=== PATIENT | female | born 1940 | race Caucasian/White ===

== ENCOUNTER 2016-07-17 09:31 | Outpatient (CLI) | payer MEDICARE | END 2016-07-17 09:32 | disposition home or self-care (01) | DX: I12.9 Hypertensive chronic kidney disease with stage 1 through stage 4 chronic kidney disease, or unspecified chronic kidney disease (principal); N18.3 Chronic kidney disease, stage 3 (moderate); M48.06 Spinal stenosis, lumbar region; Z86.010 Personal history of colon polyps; Z86.79 Personal history of other diseases of the circulatory system; R73.01 Impaired fasting glucose; H35.81 Retinal edema; M85.80 Other specified disorders of bone density and structure, unspecified site; G20 Parkinson's disease; L98.9 Disorder of the skin and subcutaneous tissue, unspecified; Z12.11 Encounter for screening for malignant neoplasm of colon ==

== ENCOUNTER 2016-07-25 08:23 | Outpatient (CLI) | payer MEDICARE | END 2016-07-25 08:24 | disposition home or self-care (01) | DX: I65.22 Occlusion and stenosis of left carotid artery (principal) ==

== ENCOUNTER 2016-08-11 15:04 | Outpatient (CLI) | payer MEDICARE | END 2016-08-11 15:05 | disposition home or self-care (01) | DX: I65.22 Occlusion and stenosis of left carotid artery (principal) ==

== ENCOUNTER 2016-10-20 08:12 | Outpatient (CLI) | payer MEDICARE ==
[2016-10-20 13:13] LABS: ALBUMIN/GLOBULIN RATIO 1.6 (1.0-2.2); BILIRUBIN,TOTAL 1.3 mg/dL (0.2-1.0); BUN - BLOOD UREA NITROGEN 17 mg/dL (6-20); CALCIUM 9.7 mg/dL (8.5-10.3); CARBON DIOXIDE - CO2 28 mmol/L (21-32); CHLORIDE 104 mmol/L (101-111); CHOL/HDL RATIO 1.9 (<4.4); CHOLESTEROL 162 mg/dL; CREATININE 1.4 mg/dL (0.4-1.0); GFR - MDRD 36 (>89); GLUCOSE 99 mg/dL (70-100); HDL CHOLESTEROL 87 mg/dL; LDL/HDL RATIO 0.6 (<4.4); POTASSIUM 4.2 mmol/L (3.5-5.0); SODIUM 139 mmol/L (135-145); TOTAL PROTEIN 7.4 g/dL (6.7-8.2); TRIGLYCERIDES 93 mg/dL; VLDL CHOLESTEROL 19 mg/dL
== END 2016-10-20 08:13 | disposition home or self-care (01) ==
LOC: LAB.F 08:12
PROVIDERS: ATTEND Internal Medicine
DX: I10 Essential (primary) hypertension (principal); I65.22 Occlusion and stenosis of left carotid artery
CPT/HCPCS: 36415; 80053; 80061

== ENCOUNTER 2017-04-24 15:21 | Emergency (ER) | payer MEDICARE ==
--- NOTE | 2017-04-24 16:20 | XRAY Preliminary Report ---
Exam: XR CHEST 2 VIEW X-RAY IMPRESSION: No evidence of pneumonia. [facility] SITE ID: [id number]
--- NOTE | 2017-04-24 16:20 | XRAY Report ---
EXAM: CHEST RADIOGRAPHY EXAM DATE: 04/24/2017 04:10 PM. CLINICAL HISTORY: Cough. COMPARISON: None. TECHNIQUE: 2 views. FINDINGS: Lungs/Pleura: No consolidative process or focal pneumonia. There are tiny dense nodules in the left a pex consistent with old granulomatous disease. Negative for pleural effusion and pneumothorax. Mediastinum: Heart and mediastinal contours are unremarkable. Other: Surgical clips overlie left axilla. IMPRESSION: No evidence of pneumonia. [facility] Referring Provider Line: [phone] SITE ID: [id number]
--- NOTE | 2017-04-24 16:28 | ED Physician Documentation ---
PD HPI URI - Stated complaint Stated Complaint: COUGHING BLOOD - Chief complaint Chief Complaint: Resp - History obtained from History obtained from: Patient - History of Present Illness Timing - onset: Today Timing duration: Days (1) Timing details: Gradual onset Pain level max: 0 Pain level now: 0 Associated symptoms: Dry cough. No: Fever, Chills, Nasal congestion, Rhinorrhea , Sinus pain, Sore throat, Chest pain, Dyspnea, NVD Contributing factors: Sick contact. 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, Hysterectomy, Mastectomy HEENT: Tonsil/Adenoidectomy, Other - Present Medications Home Medications: Ambulatory Orders Medication Instructions Recorded Confirmed Aspirin 1 tab PO DAILY 04/24/17 04/24/17 Atorvastatin [Lipitor] 20 mg PO DAILY 04/24/17 04/24/17 Benzonatate [Tessalon Perle] 100 - 200 mg PO TID PRN #30 capsule 04/24/17 Calcium Carbonate 600 mg PO BID 04/24/17 04/24/17 Carbidopa/Levodopa 25/100 [Sinemet 1 tab PO QID 04/24/17 04/24/17 25 mg/100 mg] Carvedilol 1 tab PO DAILY 04/24/17 04/24/17 Melatonin 1 tab PO DAILY 04/24/17 04/24/17 Pramipexole Di-HCl [Pramipexole 0.125 mg pe PO TID 04/24/17 04/24/17 Dihydrochloride] Ubidecarenone [Co Q-10] 200 mg PO DAILY 04/24/17 04/24/17 - Allergies Allergies/Adverse Reactions: Allergies Allergy/AdvReac Type Severity Reaction Status Date / Time pentazocine [From Monty] Allergy Unknown Verified 04/24/17 16:25 sulfamethoxazole Allergy Unknown Verified 04/24/17 15:36 [From ] trimethoprim [From ] Allergy Unknown Verified 04/24/17 15:36 - Living Situation Living Situation: reports: With family Living Arrangement: reports: At home - Social History Does the pt smoke?: No Smoking Status: Former smoker Does the pt drink ETOH?: Yes ETOH Use: Wine Does the pt have substance abuse?: No Substance Use and Type: Marijuana - Immunizations Immunizations are current?: Yes PD ED PE NORMAL - Vitals Vital signs reviewed: Yes - General General: Alert and oriented X 3, No acute distress, Well developed/nourished - HEENT HEENT: PERRL, Ears normal, Moist mucous membranes, Pharynx benign - Neck Neck: Supple, no meningeal sign - Cardiac Cardiac: RRR, Strong equal pulses - Respiratory Respiratory: No respiratory distress, Clear bilaterally - Abdomen Abdomen: Soft, Non tender, Non distended - Derm Derm: Warm and dry - Extremities Extremities: No edema, No calf tenderness / cord - Neuro Neuro: Alert and oriented X 3 - Psych Psych: Normal mood, Normal affect Results - Vitals Vitals: Vital Signs - 24 hr 04/24/17 04/24/17 15:33 16:57 Temperature 36.2 C L 36.6 C Heart Rate 98 71 Respiratory 16 16 Rate Blood Pressure 139/74 H 147/73 H O2 Saturation 99 100 Oxygen O2 Source Room air - Rads (name of study) cxr Radiology: Prelim report reviewed, EMP read contemporaneously, See rad report ( no acute disease) PD MEDICAL DECISION MAKING - ED course Complexity details: reviewed results, re-evaluated patient, considered differential, d/w patient ED course: Patient is a 76-year-old female who presents to the emergency department with what appears to be a viral URI complicated by a small amount of hemoptysis, bright red after a coughing fit. Likely shear force induced. Will continue supportive care and follow-up with her doctor. Will place on antitussives for home. Evidence of tumor, mass, pulmonary embolus. Patient counseled regarding signs and symptoms for which I believe and urgent re-evaluation would be necessary. Patient with good understanding of and agreement to plan and is comfortable going home at this time This document was made in part using voice recognition software. While efforts are made to proofread this document, sound alike and grammatical errors may occur. Departure - Departure Disposition: 01 Home, Self Care Clinical Impression: Hemoptysis Upper respiratory tract infection Qualifiers: URI type: unspecified URI Qualified Code(s): J06.9 - Acute upper respiratory infection, unspecified Condition: Good Instructions: ED Hemoptysis Follow-Up: Shirley Reaves PA-C [Primary Care Provider] - Prescriptions: Benzonatate [Tessalon Perle] 100 - 200 mg PO TID PRN #30 capsule PRN Reason: Cough Comments: Return if you worsen. Your xray is normal today. Discharge Date/Time: 04/24/17 16:57
[2017-04-24 16:58] VITALS: BP 147/73
== END 2017-04-24 16:57 | disposition home or self-care (01) ==
LOC: ED 15:21
DX: R04.2 Hemoptysis (principal); J06.9 Acute upper respiratory infection, unspecified; I10 Essential (primary) hypertension; E78.00 Pure hypercholesterolemia, unspecified; G20 Parkinson's disease; Z85.3 Personal history of malignant neoplasm of breast; Z90.10 Acquired absence of unspecified breast and nipple
CPT/HCPCS: 71046; 99283

== ENCOUNTER 2017-04-30 10:20 | Outpatient (CLI) | payer MEDICARE | END 2017-04-30 10:21 | disposition home or self-care (01) | LOC: LAB.R 10:20 | PROVIDERS: ATTEND Family Medicine | DX: N39.0 Urinary tract infection, site not specified (principal); R59.0 Localized enlarged lymph nodes | CPT/HCPCS: 87086 ==

== ENCOUNTER 2017-06-05 09:00 | Outpatient (CLI) | payer MEDICARE | END 2017-06-05 09:01 | disposition home or self-care (01) | LOC: LAB.WCP 09:00 | PROVIDERS: ATTEND Family Medicine | DX: R31.9 Hematuria, unspecified (principal) | CPT/HCPCS: 87086 ==

== ENCOUNTER 2017-06-24 12:07 | Outpatient (CLI) | payer MEDICARE ==
--- NOTE | 2017-06-24 15:36 | MRI Report ---
EXAM MRA BRAIN EXAM DATE: 06/24/2017 12:53 PM. CLINICAL HISTORY: 68-year-old with history of carotid artery stenosis. Evaluate for intracranial vasc ular pathology. COMPARISON: Carotid artery Doppler 08/11/2016. TECHNIQUE: Multiplanar, multisequence MRA sequences of the brain were performed. Other: None. Post-pr ocessing: Multiplanar 3D MIP reconstructions. IV Contrast: None. FINDINGS: RIGHT Internal Carotid (ICA): No aneurysm, stenosis or anomaly. Middle Cerebral (MCA): No aneurysm, stenosis or anomaly. Anterior Cerebral (ASHANTI): No aneurysm, stenosis or anomaly. Posterior Cerebral (BULL FLOAT FINISHER): No aneurysm, stenosis or anomaly. Posterior Communicating (P-COM): No aneurysm, stenosis or anomaly. Vertebral: No aneurysm, stenosis or anomaly in the visualized upper vertebral artery. LEFT Internal Carotid (ICA): No aneurysm, stenosis or anomaly. Middle Cerebral (MCA): No aneurysm, stenosis or anomaly. Anterior Cerebral (ASHANTI): No aneurysm, stenosis or anomaly. Posterior Cerebral (BULL FLOAT FINISHER): The appearance to be a hypoplastic P1 segment of the left BULL FLOAT FINISHER with normal-a ppearing T2 segment distal BULL FLOAT FINISHER branches secondary to low through posterior communicating artery. Posterior Communicating (P-COM): No aneurysm, stenosis or anomaly. Vertebral: There is lack of flow related signal seen within the distal V3 segment and proximal V4 seg ment with reconstitution of flow-related signal within the mid V4 segment of the left vertebral arter y. Although finding may be technical the possibility of proximal left vertebral artery occlusion liban ot be excluded on this study. MIDLINE Anterior Communicating (A-COM): No aneurysm, stenosis or anomaly. Basilar Artery:No aneurysm, stenosis or anomaly. Other: None. IMPRESSION: 1. There is lack of flow related signal seen within the distal V3 segment and proximal V4 segment wit h reconstitution of flow-related signal within the mid V4 segment of the left vertebral artery. Altho ugh finding may be technical the possibility of proximal left vertebral artery occlusion cannot be ex cluded on this study. 2. No intracranial aneurysm. [facility] The above findings were discussed with Guille Renteria by Dr. Janes Miller at 15:35 hrs on 06/24/17. Referring Provider Line: [phone] SITE ID: [id number]
== END 2017-06-24 12:08 | disposition home or self-care (01) ==
LOC: DI 12:07
PROVIDERS: ATTEND Family Medicine
DX: I77.1 Stricture of artery (principal)
CPT/HCPCS: 70544

== ENCOUNTER 2017-07-01 11:02 | Outpatient (CLI) | payer MEDICARE ==
[2017-07-01 17:29] LABS: BASOPHILS # (AUTO) 0.1 10^3/uL (0.0-0.1); BASOPHILS % (AUTO) 1.2 %; EOSINOPHILS # (AUTO) 0.1 10^3/uL (0.0-0.7); EOSINOPHILS % (AUTO) 1.9 %; HGB - HEMOGLOBIN 11.8 g/dL (12.0-16.0); LYMPHOCYTES # (AUTO) 0.7 10^3/uL (1.5-3.5); LYMPHOCYTES % (AUTO) 16.1 %; MEAN CORPUSCULAR HEMOGLOBIN 30.8 pg (27.0-31.0); MEAN CORPUSCULAR VOLUME 96.1 fL (81.0-99.0); MEAN PLATELET VOLUME 10.3 fL (7.9-10.8); MONOCYTES # (AUTO) 0.3 10^3/uL (0.0-1.0); MONOCYTES % (AUTO) 6.3 %; NEUTROPHILS # (AUTO) 3.2 10^3/uL (1.5-6.6); NEUTROPHILS % (AUTO) 74.5 %; PLT - PLATELET COUNT 188 10^3/uL (130-450); RED BLOOD COUNT 3.85 10^6/uL (4.20-5.40); RED CELL DISTRIBUTION WIDTH 13.9 % (12.0-15.0); WHITE BLOOD COUNT 4.3 x10^3/uL (4.8-10.8)
[2017-07-01 17:47] LABS: ALBUMIN 4.5 g/dL (3.2-5.5); ALBUMIN/GLOBULIN RATIO 1.8 (1.0-2.2); ALKALINE PHOSPHATASE 62 IU/L (42-121); ALT ALANINE AMINOTRANSFERASE < 10 IU/L (10-60); AST ASPARTATE AMINOTRANSFERASE 14 IU/L (10-42); BILIRUBIN,TOTAL 0.9 mg/dL (0.2-1.0); BUN - BLOOD UREA NITROGEN 16 mg/dL (6-20); CALCIUM 9.5 mg/dL (8.5-10.3); CARBON DIOXIDE - CO2 27 mmol/L (21-32); CHLORIDE 103 mmol/L (101-111); CHOL/HDL RATIO 1.7 (<4.4); CHOLESTEROL 158 mg/dL; CREATININE 1.1 mg/dL (0.4-1.0); GFR - MDRD 48 (>89); GLUCOSE 95 mg/dL (70-100); HDL CHOLESTEROL 91 mg/dL; LDL CHOLESTEROL,CALCULATED 53 mg/dL; LDL/HDL RATIO 0.6 (<4.4); SODIUM 136 mmol/L (135-145); VLDL CHOLESTEROL 14 mg/dL
[2017-07-01 17:53] LABS: HEMOGLOBIN A1C 0.45 g/dL; HEMOGLOBIN A1C % 5.3 % (4.6-6.2)
== END 2017-07-01 11:03 | disposition home or self-care (01) ==
LOC: LAB.F 11:02
PROVIDERS: ATTEND Physician Assistant Medical
DX: R35.0 Frequency of micturition (principal); R63.1 Polydipsia; R63.2 Polyphagia; R63.4 Abnormal weight loss; E78.5 Hyperlipidemia, unspecified; E04.1 Nontoxic single thyroid nodule
CPT/HCPCS: 36415; 80053; 80061; 83036; 83721; 84443; 85025

== ENCOUNTER 2017-09-09 11:18 | Outpatient (CLI) | payer MEDICARE ==
[2017-09-09 17:59] LABS: INR 1.1 (0.8-1.2); PT - PROTHROMBIN TIME 12.2 secs (9.9-12.6)
[2017-09-09 18:05] LABS: BASOPHILS % (AUTO) 0.4 %; EOSINOPHILS # (AUTO) 0.1 10^3/uL (0.0-0.7); EOSINOPHILS % (AUTO) 2.3 %; HGB - HEMOGLOBIN 11.7 g/dL (12.0-16.0); LYMPHOCYTES # (AUTO) 0.8 10^3/uL (1.5-3.5); LYMPHOCYTES % (AUTO) 22.7 %; MEAN CORPUSCULAR HEMOGLOBIN 31.1 pg (27.0-31.0); MEAN CORPUSCULAR HGB CONC 32.8 g/dL (32.0-36.0); MEAN CORPUSCULAR VOLUME 94.9 fL (81.0-99.0); MEAN PLATELET VOLUME 10.5 fL (7.9-10.8); MONOCYTES # (AUTO) 0.2 10^3/uL (0.0-1.0); MONOCYTES % (AUTO) 6.7 %; NEUTROPHILS # (AUTO) 2.4 10^3/uL (1.5-6.6); NEUTROPHILS % (AUTO) 67.9 %; PLT - PLATELET COUNT 180 10^3/uL (130-450); RED BLOOD COUNT 3.78 10^6/uL (4.20-5.40); RED CELL DISTRIBUTION WIDTH 14.2 % (12.0-15.0); WHITE BLOOD COUNT 3.6 x10^3/uL (4.8-10.8)
[2017-09-09 18:06] LABS: CALCIUM 9.5 mg/dL (8.5-10.3)
== END 2017-09-09 11:19 | disposition home or self-care (01) ==
LOC: LAB.F 11:18
PROVIDERS: ATTEND Internal Medicine Cardiovascular Disease
DX: I42.9 Cardiomyopathy, unspecified (principal); I44.7 Left bundle-branch block, unspecified; E78.5 Hyperlipidemia, unspecified
CPT/HCPCS: 36415; 80048; 85025; 85610; 93005

== ENCOUNTER 2017-10-19 10:51 | Outpatient (CLI) | payer MEDICARE ==
[2017-10-19 17:53] LABS: PT - PROTHROMBIN TIME 11.6 secs (9.9-12.6)
== END 2017-10-19 10:52 | disposition home or self-care (01) ==
LOC: LAB.F 10:51
PROVIDERS: ATTEND Internal Medicine Cardiovascular Disease
DX: I48.0 Paroxysmal atrial fibrillation (principal)
CPT/HCPCS: 36415; 84443; 85610

== ENCOUNTER 2017-10-22 11:22 | Outpatient (CLI) | payer MEDICARE ==
[2017-10-22 18:15] LABS: INR 1.3 (0.8-1.2)
== END 2017-10-22 11:23 | disposition home or self-care (01) ==
LOC: LAB.F 11:22
PROVIDERS: ATTEND Emergency Medicine
DX: I48.91 Unspecified atrial fibrillation (principal)
CPT/HCPCS: 36415; 85610

== ENCOUNTER 2017-10-26 08:01 | Outpatient (CLI) | payer MEDICARE | END 2017-10-26 08:02 | disposition home or self-care (01) | LOC: LAB.F 08:01 | PROVIDERS: ATTEND Emergency Medicine | DX: I48.91 Unspecified atrial fibrillation (principal) | CPT/HCPCS: 85610 ==

== ENCOUNTER 2017-10-26 09:15 | Outpatient (CLI) | payer MEDICARE ==
--- NOTE | 2017-10-26 11:26 | XRAY Report ---
Procedure Date: 10/26/2017 Accession Number: [id number] / [id number] Procedure: XRS - Chest 2 View X-Ray CPT Code: 72384 FULL RESULT: EXAM: Chest 2 View X-Ray DATE: 10/26/2017 9:39 AM CLINICAL HISTORY: PULMONARY NODULE COMPARISON: Chest rate of 04/24/2017. TECHNIQUE: 2 views. FINDINGS: Lungs/Pleura: Left apical subtle nodules are demonstrated. There is no focal lung consolidation. There is no pleural effusion or pneumothorax. Mediastinum: Heart and mediastinal contours are unremarkable. Other: Left axillary surgical clips, stable. IMPRESSION: Stable chest radiograph with no acute abnormality. If the patient has a history of smoking and qualifies for screening chest CT on a clinical basis, this could be performed. [facility]
== END 2017-10-26 09:16 | disposition home or self-care (01) ==
LOC: DI.S 09:15
PROVIDERS: ATTEND Internal Medicine
DX: R91.1 Solitary pulmonary nodule (principal); I48.91 Unspecified atrial fibrillation
CPT/HCPCS: 71046; 85610

== ENCOUNTER 2017-10-29 07:49 | Outpatient (CLI) | payer MEDICARE | END 2017-10-29 07:50 | disposition home or self-care (01) | LOC: LAB.F 07:49 | PROVIDERS: ATTEND Emergency Medicine | DX: I48.91 Unspecified atrial fibrillation (principal) | CPT/HCPCS: 85610 ==

== ENCOUNTER 2017-11-02 07:56 | Outpatient (CLI) | payer MEDICARE ==
[2017-11-02 11:24] LABS: BASOPHILS # (AUTO) 0.1 10^3/uL (0.0-0.1); BASOPHILS % (AUTO) 2.3 %; EOSINOPHILS # (AUTO) 0.1 10^3/uL (0.0-0.7); LYMPHOCYTES # (AUTO) 0.8 10^3/uL (1.5-3.5); LYMPHOCYTES % (AUTO) 20.3 %; MEAN CORPUSCULAR HEMOGLOBIN 31.1 pg (27.0-31.0); MEAN CORPUSCULAR HGB CONC 32.7 g/dL (32.0-36.0); MEAN CORPUSCULAR VOLUME 95.2 fL (81.0-99.0); MEAN PLATELET VOLUME 9.8 fL (7.9-10.8); MONOCYTES # (AUTO) 0.2 10^3/uL (0.0-1.0); MONOCYTES % (AUTO) 5.6 %; NEUTROPHILS # (AUTO) 2.7 10^3/uL (1.5-6.6); NEUTROPHILS % (AUTO) 69.8 %; PLT - PLATELET COUNT 217 10^3/uL (130-450); RED BLOOD COUNT 3.85 10^6/uL (4.20-5.40); RED CELL DISTRIBUTION WIDTH 14.5 % (12.0-15.0); WHITE BLOOD COUNT 3.9 x10^3/uL (4.8-10.8)
[2017-11-02 11:30] LABS: PT - PROTHROMBIN TIME 74.9 secs (9.9-12.6)
[2017-11-02 11:40] LABS: INR 7.1 (0.8-1.2)
== END 2017-11-02 07:57 | disposition home or self-care (01) ==
LOC: LAB.F 07:56
PROVIDERS: ATTEND Emergency Medicine
DX: I48.91 Unspecified atrial fibrillation (principal)
CPT/HCPCS: 36415; 85025; 85610

== ENCOUNTER 2017-11-04 09:00 | Outpatient (CLI) | payer MEDICARE | END 2017-11-04 09:01 | disposition home or self-care (01) | LOC: LAB.F 09:00 | PROVIDERS: ATTEND Emergency Medicine | DX: I48.91 Unspecified atrial fibrillation (principal) | CPT/HCPCS: 85610 ==

== ENCOUNTER 2017-11-09 08:33 | Outpatient (CLI) | payer MEDICARE | END 2017-11-09 08:34 | disposition home or self-care (01) | LOC: LAB.F 08:33 | PROVIDERS: ATTEND Emergency Medicine | DX: I48.91 Unspecified atrial fibrillation (principal) | CPT/HCPCS: 85610 ==

== ENCOUNTER 2017-11-16 07:59 | Outpatient (CLI) | payer MEDICARE | END 2017-11-16 08:00 | disposition home or self-care (01) | LOC: LAB.F 07:59 | PROVIDERS: ATTEND Emergency Medicine | DX: I48.91 Unspecified atrial fibrillation (principal) | CPT/HCPCS: 85610 ==

== ENCOUNTER 2017-11-20 07:46 | Outpatient (CLI) | payer MEDICARE | END 2017-11-20 07:47 | disposition home or self-care (01) | LOC: LAB.F 07:46 | PROVIDERS: ATTEND Emergency Medicine | DX: I48.91 Unspecified atrial fibrillation (principal) | CPT/HCPCS: 85610 ==

== ENCOUNTER 2017-12-28 08:00 | Outpatient (CLI) | payer MEDICARE ==
[2017-12-28 18:28] LABS: CREATININE 1.5 mg/dL (0.4-1.0)
== END 2017-12-28 08:01 | disposition home or self-care (01) ==
LOC: LAB.F 08:00
PROVIDERS: ATTEND Emergency Medicine
DX: I48.0 Paroxysmal atrial fibrillation (principal)
CPT/HCPCS: 36415; 82565

== ENCOUNTER 2018-01-19 13:29 | Outpatient (CLI) | payer MEDICARE ==
[2018-01-19 17:29] LABS: CALCIUM 9.3 mg/dL (8.5-10.3); CREATININE 1.5 mg/dL (0.4-1.0)
== END 2018-01-19 13:30 | disposition home or self-care (01) ==
LOC: LAB.F 13:29
PROVIDERS: ATTEND Internal Medicine Cardiovascular Disease
DX: H02.402 Unspecified ptosis of left eyelid (principal); I42.9 Cardiomyopathy, unspecified
CPT/HCPCS: 36415; 80048; 81599; 83519

== ENCOUNTER 2018-04-03 10:26 | Emergency (ER) | payer MEDICARE ==
--- NOTE | 2018-04-03 11:38 | ED Physician Documentation ---
PD HPI HEENT FB - Chief complaint Chief Complaint: Heent - History obtained from History obtained from: Patient, Family - History of Present Illness Pain level now: 0 Location: Left ear Associated symptoms: No: Fever, Congestion, Rhinorrhea, Trismus, Unable to swallow, Swollen nodes, Facial swelling, Headache, Cough Similar symptoms before: Has not had sx before Recently seen: Not recently seen - Additional information Additional information: 77-year-old female with history of Parkinson and hearing aids here with complain of left ear pain after she tried to put in her hearing aids today patient stated she does not usually use the hearing aids on a regular basis. Patient denies any fever, ear drainage, upper respiratory infection, dizziness, nausea. Patient and spouse noted that both ear hearing aids do not have the soft plastic that covers the end part of her hearing aid. Review of Systems Ten Systems: 10 systems reviewed and negative Constitutional: denies: Fever Ears: reports: Ear pain. 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, Mastectomy HEENT: Tonsil/Adenoidectomy, Other - Present Medications Home Medications: Ambulatory Orders Medication Instructions Recorded Confirmed Calcium Carbonate [Calcium] 600 mg PO BID 04/24/17 04/24/17 Carbidopa/Levodopa 25/100 [Sinemet 1 tab PO QID 04/24/17 04/24/17 25 mg/100 mg] Carvedilol 1 tab PO DAILY 04/24/17 04/24/17 Melatonin 1 tab PO DAILY 04/24/17 04/24/17 Amiodarone [Pacerone] 1 tab PO DAILY 04/03/18 04/03/18 Dabigatran [Pradaxa] 1 tab PO BID 04/03/18 04/03/18 Lisinopril 1 tab PO DAILY 04/03/18 04/03/18 Spironolactone 1 tab PO DAILY 04/03/18 04/03/18 - Allergies Allergies/Adverse Reactions: Allergies Allergy/AdvReac Type Severity Reaction Status Date / Time pentazocine [From Talwin] Allergy Unknown Verified 04/03/18 10:45 sulfamethoxazole Allergy Unknown Verified 04/03/18 10:45 [From ] trimethoprim [From ] Allergy Unknown Verified 04/03/18 10:45 - Social History Does the pt smoke?: No Smoking Status: Never smoker Does the pt drink ETOH?: Yes Does the pt have substance abuse?: No - Immunizations Immunizations are current?: Yes Immunizations: Other immun current PD ED PE NORMAL - Vitals Vital signs reviewed: Yes - General General: Alert and oriented X 3, No acute distress, Well developed/nourished - HEENT HEENT: Atraumatic, PERRL, EOMI, Ears normal, Moist mucous membranes, Pharynx benign, Other (Bilateral ears no foreign body noted.No erythema. No lesions. External auditory canal intact tympanic membranes intact) - Neck Neck: Supple, no meningeal sign, No adenopathy - Respiratory Respiratory: No respiratory distress - Abdomen Abdomen: Soft - Derm Derm: Warm and dry - Extremities Extremities: No deformity - Neuro Neuro: Alert and oriented X 3 - Psych Psych: Normal mood, Normal affect Results - Vitals Vitals: Vital Signs - 24 hr 04/03/18 10:28 Temperature 36.5 C Heart Rate 66 Respiratory 18 Rate Blood Pressure 139/57 H O2 Saturation 100 Oxygen O2 Source Room air PD MEDICAL DECISION MAKING - ED course Complexity details: considered differential (Otitis media, otitis externa, trauma from hearing aids, foreign body), d/w patient, d/w family ED course: Patient spouse informed of examination. Instructed to follow-up with her ENT as soon as possible after the holidays. Patient will take [id number] Tylenol or Motrin for pain.Patient stated that she has history of shingles on the right side of her face which started as a right ear pain. Patient will monitor for any development of rash on her face and will see her primary doctor or return to the emergency room immediately for treatment. Departure - Departure Disposition: 01 Home, Self Care Clinical Impression: Earache on left Condition: Stable Comments: There is no foreign body or plastic inside your ears. You have no ear infection today. Call your ENT as soon as possible to reevaluate your ears and hearing aid. For pain you may take Tylenol or Motrin. If worse return to the emergency room.Monitor any development of shingles like you previously had and if this occurs call your primary doctor as soon as possible or you may return to the emergency room for medication.
[2018-04-03 11:53] VITALS: BP 143/59
== END 2018-04-03 11:52 | disposition home or self-care (01) ==
LOC: ED 10:26
DX: H92.02 Otalgia, left ear (principal); G20 Parkinson's disease; I10 Essential (primary) hypertension; E78.00 Pure hypercholesterolemia, unspecified
CPT/HCPCS: 99283

== ENCOUNTER 2018-04-14 11:25 | Outpatient (CLI) | payer MEDICARE ==
[2018-04-14 17:53] LABS: CREATININE 1.4 mg/dL (0.4-1.0)
== END 2018-04-14 11:26 | disposition home or self-care (01) ==
LOC: LAB.F 11:25
PROVIDERS: ATTEND Emergency Medicine
DX: I48.91 Unspecified atrial fibrillation (principal); I48.0 Paroxysmal atrial fibrillation
CPT/HCPCS: 36415; 82565; 85610

== ENCOUNTER 2018-07-20 10:55 | Outpatient (CLI) | payer MEDICARE ==
[2018-07-20 19:19] LABS: HB2 TOTAL 12.5 g/dL; HEMOGLOBIN A1C 0.42 g/dL; HEMOGLOBIN A1C % 5.2 % (4.6-6.2)
[2018-07-20 19:21] LABS: RHEUMATOID FACTOR NEGATIVE (Negative)
[2018-07-22 23:57] LABS: ALPHA 1 GLOBULIN 0.3 g/dL (0.2-0.3); ALPHA 2 GLOBULIN 0.8 g/dL (0.5-0.9); BETA 1 GLOBULIN 0.4 g/dL (0.4-0.6); BETA 2 GLOBULIN 0.3 g/dL (0.2-0.5); GAMMA GLOBULIN 1.2 g/dL (0.8-1.7)
[2018-07-23 20:52] LABS: ANA SCREEN POSITIVE (NEGATIVE)
== END 2018-07-20 10:56 | disposition home or self-care (01) ==
LOC: LAB.F 10:55
PROVIDERS: ATTEND Psychiatry & Neurology Neurology
DX: G20 Parkinson's disease (principal)
CPT/HCPCS: 36415; 81599; 83036; 84155; 84165; 86038; 86140; 86200; 86430

== ENCOUNTER 2018-09-24 12:30 | Outpatient (CLI) | payer MEDICARE ==
[2018-09-24 17:25] LABS: CREATININE 1.9 mg/dL (0.4-1.0)
== END 2018-09-24 12:31 | disposition home or self-care (01) ==
LOC: LAB.F 12:30
PROVIDERS: ATTEND Emergency Medicine
DX: I48.0 Paroxysmal atrial fibrillation (principal)
CPT/HCPCS: 36415; 82565; 85610

== ENCOUNTER 2018-09-28 08:41 | Outpatient (CLI) | payer MEDICARE ==
[2018-09-28 10:31] LABS: BASOPHILS % (AUTO) 1.4 %; EOSINOPHILS # (AUTO) 0.1 10^3/uL (0.0-0.7); EOSINOPHILS % (AUTO) 2.8 %; LYMPHOCYTES # (AUTO) 0.5 10^3/uL (1.5-3.5); LYMPHOCYTES % (AUTO) 23.4 %; MEAN CORPUSCULAR HEMOGLOBIN 31.4 pg (27.0-31.0); MEAN CORPUSCULAR HGB CONC 31.7 g/dL (32.0-36.0); MEAN CORPUSCULAR VOLUME 99.1 fL (81.0-99.0); MONOCYTES # (AUTO) 0.3 10^3/uL (0.0-1.0); MONOCYTES % (AUTO) 12.8 %; NEUTROPHILS # (AUTO) 1.3 10^3/uL (1.5-6.6); NEUTROPHILS % (AUTO) 59.1 %; PLT - PLATELET COUNT 189 10^3/uL (130-450); RED CELL DISTRIBUTION WIDTH 13.7 % (12.0-15.0); WHITE BLOOD COUNT 2.2 x10^3/uL (4.8-10.8)
[2018-09-28 11:08] LABS: PLATELET ESTIMATE, MANUAL NORMAL (130-450,000) (NORMAL); PLATELET MORPHOLOGY NORMAL APPEARANCE (NORMAL); RBC MORPHOLOGY (MULTIPLE) NORMAL APPEARANCE (NORMAL)
== END 2018-09-28 08:42 | disposition home or self-care (01) ==
LOC: LAB.F 08:41
PROVIDERS: ATTEND Emergency Medicine
DX: I48.91 Unspecified atrial fibrillation (principal)
CPT/HCPCS: 36415; 85025

== ENCOUNTER 2018-10-05 15:11 | Outpatient (CLI) | payer MEDICARE | END 2018-10-05 15:12 | disposition home or self-care (01) | LOC: LAB.S 15:11 | PROVIDERS: ATTEND Emergency Medicine | DX: I48.91 Unspecified atrial fibrillation (principal) | CPT/HCPCS: 85610 ==

== ENCOUNTER 2018-10-15 13:48 | Outpatient (CLI) | payer MEDICARE ==
[2018-10-15 18:04] LABS: BILIRUBIN,URINE NEGATIVE (NEGATIVE); GLUCOSE, URINE (UA) NEGATIVE (NEGATIVE); KETONES,URINE (UA) NEGATIVE (NEGATIVE); LEUKOCYTE ESTERASE, URINE TRACE (NEGATIVE); NITRITE,URINE NEGATIVE (NEGATIVE); OCCULT BLOOD,URINE NEGATIVE (NEGATIVE); PROTEIN,URINE NEGATIVE (NEGATIVE); UROBILINOGEN,URINE 0.2 (NORMAL) E.U./dL (NORMAL)
[2018-10-15 18:13] LABS: INR 3.6 (0.8-1.2); PT - PROTHROMBIN TIME 39.8 secs (9.9-12.6)
[2018-10-15 18:32] LABS: CLARITY,URINE HAZY (CLEAR)
[2018-10-15 18:33] LABS: BACTERIA,URINE Many /HPF (None Seen); RBC,URINE None Seen /HPF (0-5); SQUAMOUS EPITHELIAL CELL,UR NONE SEEN (<= Few); WBC CLUMPS,URINE PRESENT
[2018-10-18 14:22] LABS: ANA SCREEN NEGATIVE (NEGATIVE)
[2018-10-19 12:12] LABS: DNA (DS) ANTIBODY 3 IU/mL
[2018-10-19 13:47] LABS: COMPLEMENT COMPONENT C3C 110 mg/dL (83-193); COMPLEMENT COMPONENT C4C 18 mg/dL (15-57)
== END 2018-10-15 13:49 | disposition home or self-care (01) ==
LOC: LAB.S 13:48
PROVIDERS: ATTEND Psychiatry & Neurology Neurology
DX: I48.91 Unspecified atrial fibrillation (principal); R76.8 Other specified abnormal immunological findings in serum
CPT/HCPCS: 36415; 81001; 85610; 86038; 86160; 86225; 87086; 87181

== ENCOUNTER 2018-10-22 13:35 | Outpatient (CLI) | payer MEDICARE | END 2018-10-22 13:36 | disposition home or self-care (01) | LOC: LAB.S 13:35 | PROVIDERS: ATTEND Emergency Medicine | DX: I48.91 Unspecified atrial fibrillation (principal) | CPT/HCPCS: 85610 ==

== ENCOUNTER 2018-11-01 13:51 | Outpatient (CLI) | payer MEDICARE ==
[2018-11-01 18:34] LABS: PT - PROTHROMBIN TIME 71.4 secs (9.9-12.6)
[2018-11-01 19:14] LABS: INR 6.4 (0.8-1.2)
== END 2018-11-01 13:52 | disposition home or self-care (01) ==
LOC: LAB.S 13:51
PROVIDERS: ATTEND Emergency Medicine
DX: I48.91 Unspecified atrial fibrillation (principal)
CPT/HCPCS: 36415; 85610

== ENCOUNTER 2018-11-03 11:15 | Outpatient (CLI) | payer MEDICARE | END 2018-11-03 11:16 | disposition home or self-care (01) | LOC: LAB.S 11:15 | PROVIDERS: ATTEND Emergency Medicine | DX: I48.91 Unspecified atrial fibrillation (principal) | CPT/HCPCS: 85610 ==

== ENCOUNTER 2018-11-05 | Outpatient (CLI) | payer MEDICARE | END 2018-11-05 10:29 | disposition home or self-care (01) | DX: I48.91 Unspecified atrial fibrillation (principal) ==

== ENCOUNTER 2018-11-08 | Outpatient (CLI) | payer MEDICARE | END 2018-11-08 15:30 | disposition home or self-care (01) | DX: I48.91 Unspecified atrial fibrillation (principal) ==

== ENCOUNTER 2018-11-09 13:11 | Outpatient (CLI) | payer MEDICARE | END 2018-11-09 23:59 | disposition home or self-care (01) | LOC: LAB.R 13:11 | PROVIDERS: ATTEND Physician Assistant Medical | DX: K52.9 Noninfective gastroenteritis and colitis, unspecified (principal) | CPT/HCPCS: 87493 ==

== ENCOUNTER 2018-11-11 12:46 | Outpatient (CLI) | payer MEDICARE ==
[2018-11-11 17:52] LABS: ALBUMIN 3.5 g/dL (3.2-5.5); BILIRUBIN,TOTAL 0.6 mg/dL (0.2-1.0); CALCIUM 9.4 mg/dL (8.5-10.3); CREATININE 2.4 mg/dL (0.4-1.0); TOTAL PROTEIN 6.9 g/dL (6.7-8.2)
== END 2018-11-11 12:47 | disposition home or self-care (01) ==
LOC: LAB.S 12:46
PROVIDERS: ATTEND Emergency Medicine
DX: I48.91 Unspecified atrial fibrillation (principal); K52.9 Noninfective gastroenteritis and colitis, unspecified
CPT/HCPCS: 36415; 80053; 85610

== ENCOUNTER 2018-11-15 14:09 | Emergency (ER) | payer MEDICARE ==
[2018-11-15 14:41] LABS: BASOPHILS % (AUTO) 0.6 %; EOSINOPHILS # (AUTO) 0.1 10^3/uL (0.0-0.7); EOSINOPHILS % (AUTO) 1.2 %; HGB - HEMOGLOBIN 11.1 g/dL (12.0-16.0); LYMPHOCYTES # (AUTO) 0.8 10^3/uL (1.5-3.5); LYMPHOCYTES % (AUTO) 17.3 %; MEAN CORPUSCULAR HEMOGLOBIN 32.1 pg (27.0-31.0); MEAN CORPUSCULAR HGB CONC 32.5 g/dL (32.0-36.0); MEAN CORPUSCULAR VOLUME 98.8 fL (81.0-99.0); MEAN PLATELET VOLUME 10.4 fL (7.9-10.8); MONOCYTES # (AUTO) 0.5 10^3/uL (0.0-1.0); MONOCYTES % (AUTO) 9.5 %; NEUTROPHILS # (AUTO) 3.5 10^3/uL (1.5-6.6); NEUTROPHILS % (AUTO) 71.2 %; PLT - PLATELET COUNT 241 10^3/uL (130-450); RED BLOOD COUNT 3.46 10^6/uL (4.20-5.40); RED CELL DISTRIBUTION WIDTH 13.2 % (12.0-15.0); WHITE BLOOD COUNT 4.9 x10^3/uL (4.8-10.8)
[2018-11-15 14:50] LABS: ALBUMIN 3.4 g/dL (3.2-5.5); BILIRUBIN,TOTAL 0.5 mg/dL (0.2-1.0); CALCIUM 9.6 mg/dL (8.5-10.3); CREATININE 2.1 mg/dL (0.4-1.0); TOTAL PROTEIN 6.9 g/dL (6.7-8.2)
--- NOTE | 2018-11-15 15:16 | ED Physician Documentation ---
History of Present Illness - Stated complaint Stated Complaint: DIARRHEA - Chief complaint Chief Complaint: Abd Pain - History obtained from History obtained from: Patient - Additonal information Additional information: Patient is an 78-year-old female presenting with 12 days of diarrhea without particular inciting incident, new ingestion, new medication, or travel. Patient was seen by her primary care physician and obtained a C. difficile test, which returned negative. Patient reports loose or watery stools consistently up to 8- 10 times a day. Patient denies any bloody stools. Patient also reports dysuria, but denies fever, nausea, vomiting, abdominal pain, or back pain. No other improving or worsening factors noted. Review of Systems Constitutional: denies: Fever GI: reports: Diarrhea. 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, Mastectomy HEENT: Tonsil/Adenoidectomy, Other - Present Medications Home Medications: Ambulatory Orders Medication Instructions Recorded Confirmed Calcium Carbonate [Calcium] 600 mg PO BID 04/24/17 04/24/17 Carbidopa/Levodopa 25/100 [Sinemet 1 tab PO QID 04/24/17 04/24/17 25 mg/100 mg] Carvedilol 1 tab PO DAILY 04/24/17 04/24/17 Melatonin 1 tab PO DAILY 04/24/17 04/24/17 Amiodarone [Pacerone] 1 tab PO DAILY 04/03/18 04/03/18 Dabigatran [Pradaxa] 1 tab PO BID 04/03/18 04/03/18 Lisinopril 1 tab PO DAILY 04/03/18 04/03/18 Spironolactone 1 tab PO DAILY 04/03/18 04/03/18 Cephalexin [Keflex] 500 mg PO BID 7 Days capsule 11/15/18 - Allergies Allergies/Adverse Reactions: Allergies Allergy/AdvReac Type Severity Reaction Status Date / Time neomycin Allergy Rash Verified 11/15/18 14:19 pentazocine [From Talwin] Allergy Unknown Verified 04/03/18 10:45 sulfamethoxazole Allergy Unknown Verified 04/03/18 10:45 [From Septra] trimethoprim [From Decra] Allergy Unknown Verified 11/15/18 14:19 - Social History Does the pt smoke?: No Smoking Status: Never smoker Does the pt drink ETOH?: Yes Does the pt have substance abuse?: No - Immunizations Immunizations are current?: Yes Immunizations: Other immun current PD ED PE NORMAL - Vitals Vital signs reviewed: Yes - General General: Alert and oriented X 3, No acute distress, Well developed/nourished - HEENT HEENT: Atraumatic, Moist mucous membranes - Neck Neck: Supple, no meningeal sign - Cardiac Cardiac: RRR, No murmur - Respiratory Respiratory: No respiratory distress, Clear bilaterally - Abdomen Abdomen: Soft, Non tender, Non distended - Derm Derm: Normal color, Warm and dry, No rash - Extremities Extremities: No deformity, No tenderness to palpate - Neuro Neuro: Alert and oriented X 3, No motor deficit, No sensory deficit - Psych Psych: Normal mood, Normal affect Results - Vitals Vitals: Vital Signs - 24 hr 11/15/18 11/15/18 14:17 17:42 Temperature 36.3 C L Heart Rate 65 86 Respiratory 16 20 Rate Blood Pressure 104/51 L 122/46 L O2 Saturation 100 97 Oxygen O2 Source Room air - Labs Labs: Laboratory Tests 11/15/18 11/15/18 11/15/18 14:28 14:28 17:26 WBC 4.9 RBC 3.46 L Hgb 11.1 L Hct 34.2 L MCV 98.8 MCH 32.1 H MCHC 32.5 RDW 13.2 Plt Count 241 MPV 10.4 Neut # (Auto) 3.5 Lymph # (Auto) 0.8 L [place] # (Auto) 0.5 Eos # (Auto) 0.1 Baso # (Auto) 0.0 Absolute Nucleated RBC 0.00 Nucleated RBC % 0.0 Sodium 137 Potassium 4.3 Chloride 100 L Carbon Dioxide 24 Anion Gap 13.0 BUN 35 H Creatinine 2.1 H Estimated GFR (MDRD) 23 L Glucose 117 H Calcium 9.6 Total Bilirubin 0.5 AST 40 ALT 65 H Alkaline Phosphatase 78 Total Protein 6.9 Albumin 3.4 Globulin 3.5 Albumin/Globulin Ratio 1.0 Lipase 23 Urine Color YELLOW Urine Clarity HAZY Urine pH 5.5 Ur Specific [place] 1.010 Urine Protein TRACE Urine Glucose (UA) NEGATIVE Urine Ketones NEGATIVE Urine Occult Blood TRACE-LYSE Urine Nitrite POSITIVE H Urine Bilirubin NEGATIVE Urine Urobilinogen 0.2 (NORMAL) Ur Leukocyte Esterase SMALL H Urine RBC 0-5 Urine WBC 11-25 H Ur Squamous Epith Cells FEW Squamous Urine Bacteria Many H Ur Microscopic Review INDICATED Urine Culture Comments INDICATED PD MEDICAL DECISION MAKING - ED course Complexity details: reviewed old records, reviewed results, re-evaluated patient, considered differential, d/w patient, d/w family ED course: Patient presenting with nearly 2 weeks of nonbloody, likely noninfectious diarrhea. Patient has negative C. difficile testing. Patient's abdomen is benign and she has no abdominal complaints of pain. Have lower suspicion for intra-abdominal pathology such as small bowel obstruction or diverticulitis, but considered. Did obtain CT imaging although without contrast given patient's elevated creatinine, which is similar to her prior measurements. Imaging did not find evidence of acute pathology that require further intervention at this time. Screening lab work also obtained and stool culture sent. Screening lab work relatively unremarkable and similar to previous measurements. Urinalysis reflective of infection and patient complaining of this issue. Given her allergies and other medications, choose Keflex to treat UTI. Discussed results and recommendations with patient and family, as well as diet and hydration recommendations, return precautions, appropriate follow-up. All voiced understanding and are comfortable with discharge plan. Departure - Departure Disposition: 01 Home, Self Care Clinical Impression: Diarrhea, Urinary tract infection Condition: Good Instructions: ED Diarrhea Viral, ED UTI Cystitis Female Follow-Up: Shirley Reaves PA-C [Primary Care Provider] - Within 3 Days Prescriptions: Cephalexin [Keflex] 500 mg PO BID 7 Days capsule Comments: Please continue all home medications as previously instructed including Imodium. Please take antibiotic as prescribed for urinary tract infection. Recommend taking with a small amount of food to avoid upset stomach. Follow-up with primary care physician in next 2 to 3 days and return to ED sooner if experience worsening symptoms or have other concerns.
[2018-11-15] MEDS ORDERED: SODIUM CHLORIDE 0.9% 1,000 ML IV ONE (15:26)
--- NOTE | 2018-11-15 16:01 | CT Report ---
Reason: 12 days diarrhea Procedure Date: 11/15/2018 Accession Number: [id number] / [id number] Procedure: CT - Abdomen/Pelvis WO CPT Code: FULL RESULT: EXAM: CT ABDOMEN AND PELVIS (CT KUB) EXAM DATE: 11/15/2018 03:43 PM. CLINICAL HISTORY: 12 days diarrhea. COMPARISONS: None. TECHNIQUE: Routine axial helical CT imaging was performed through the abdomen and pelvis without IV contrast. Reconstructions: Coronal and sagittal. In accordance with CT protocol optimization, one or more of the following dose reduction techniques were utilized for this exam: automated exposure control, adjustment of mA and/or KV based on patient size, or use of iterative reconstructive technique. FINDINGS: The examination is limited by absence of intravenous contrast and intraabdominal fat. Lung Bases: Unremarkable. Right Kidney/Ureter: There are two 3 mm nonobstructing calcifications within the right kidney, calculi versus vascular calcifications, favor calculi. No hydronephrosis, or hydroureter. No perinephric fat stranding. Left Kidney/Ureter: No stones, hydronephrosis, or hydroureter. No perinephric fat stranding. Other Solid Organs: Noncontrast images of the solid organs are grossly unremarkable. Gallbladder/Bile Ducts: Hyperdense material is seen within the gallbladder, vicarious excretion of contrast versus hyperdense bile versus small gallstones. Peritoneal Cavity: A 1.1 x 2.2 cm peripherally calcified nodule has the appearance of granulomatous reaction, potentially postsurgical finding. Rectal vault contains gas and fluid, consistent with provided history. Remaining large bowel is also filled with fluid and gas, consistent with diarrhea. Seen within small and large bowel are small quantities of hyperdense material, small amount of oral contrast versus hyperdense fluid such as magnesium citrate. There is no bowel obstruction. There is no free fluid or free air. Appendix is not seen. Pelvic Organs: Noncontrast bladder is within normal limits. Uterus is not visualized. Vasculature: Moderate atherosclerotic disease without abdominal aortic aneurysm as seen. Other: None. IMPRESSION: Limited study. The etiology of the patient's diarrhea is not identified. [facility]
[2018-11-15 17:39] LABS: BILIRUBIN,URINE NEGATIVE (NEGATIVE); GLUCOSE, URINE (UA) NEGATIVE (NEGATIVE); KETONES,URINE (UA) NEGATIVE (NEGATIVE); LEUKOCYTE ESTERASE, URINE SMALL (NEGATIVE); NITRITE,URINE POSITIVE (NEGATIVE); OCCULT BLOOD,URINE TRACE-LYSE (NEGATIVE); PH,URINE 5.5 PH (5.0-7.5); PROTEIN,URINE TRACE mg/dL (NEGATIVE); UROBILINOGEN,URINE 0.2 (NORMAL) E.U./dL (NORMAL)
[2018-11-15 17:51] LABS: CLARITY,URINE HAZY (CLEAR)
[2018-11-15 17:55] LABS: BACTERIA,URINE Many /HPF (None Seen); RBC,URINE 0-5 /HPF (0-5); SQUAMOUS EPITHELIAL CELL,UR FEW Squamous (<= Few)
[2018-11-15 18:33] VITALS: BP 102/50
== END 2018-11-15 18:47 | disposition home or self-care (01) ==
LOC: ED 14:09
DX: R19.7 Diarrhea, unspecified (principal); N39.0 Urinary tract infection, site not specified; I10 Essential (primary) hypertension
CPT/HCPCS: 36415; 51701; 74176; 80053; 81001; 81003; 83690; 85025; 87045; 87046; 87077; 87086; 87181; 96360; 96361; 99284

== ENCOUNTER 2018-11-18 09:36 | Outpatient (CLI) | payer MEDICARE ==
[2018-11-18 17:24] LABS: HGB - HEMOGLOBIN 10.2 g/dL (12.0-16.0); MEAN CORPUSCULAR HEMOGLOBIN 31.2 pg (27.0-31.0); MEAN CORPUSCULAR HGB CONC 30.9 g/dL (32.0-36.0); MEAN CORPUSCULAR VOLUME 100.9 fL (81.0-99.0); MEAN PLATELET VOLUME 11.3 fL (7.9-10.8); RED BLOOD COUNT 3.27 10^6/uL (4.20-5.40); RED CELL DISTRIBUTION WIDTH 13.5 % (12.0-15.0); WHITE BLOOD COUNT 4.2 x10^3/uL (4.8-10.8)
== END 2018-11-18 09:37 | disposition home or self-care (01) ==
LOC: LAB.S 09:36
PROVIDERS: ATTEND Emergency Medicine
DX: I48.91 Unspecified atrial fibrillation (principal)
CPT/HCPCS: 36415; 85027; 85610

== ENCOUNTER 2018-11-23 12:34 | Outpatient (CLI) | payer MEDICARE | END 2018-11-23 12:35 | disposition home or self-care (01) | LOC: LAB.S 12:34 | PROVIDERS: ATTEND Emergency Medicine | DX: I48.91 Unspecified atrial fibrillation (principal) | CPT/HCPCS: 85610 ==

== ENCOUNTER 2018-11-30 12:19 | Outpatient (CLI) | payer MEDICARE | END 2018-11-30 12:20 | disposition home or self-care (01) | LOC: LAB.S 12:19 | PROVIDERS: ATTEND Emergency Medicine | DX: I48.91 Unspecified atrial fibrillation (principal) | CPT/HCPCS: 85610 ==

== ENCOUNTER 2018-12-03 14:30 | Outpatient (CLI) | payer MEDICARE ==
--- NOTE | 2018-12-03 17:04 | CONSULTATION NOTE ---
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 She reports she was told it was PSP, though I cannot find this confirmed in her records. She has seen multiple neurologists in the past, original diagnosis of Parkinson's disease came in 2013. She has been trialed on multiple medications with no response. Of most significant is she has continued to lose functional capability, ambulation, increasing weakness complicated by significant weight loss of almost 60 pounds over this last year. She also has idiopathic peripheral neuropathy, which affects her balance. Much to her dismay, she has had increased dependence as far as needing an increased care. And appears quite frail as a failure to thrive. Patient also has known chronic kidney disease which is recently progressed to stage IV. Patient is not interested in dialysis, but has been scheduled with nephrology. She has known nonischemic congestive heart failure and atrial fib, currently on warfarin, previously on Pradaxa but with kidney function failing was switched over last year. She has been to many specialists, without any relief really of any of her symptoms or definition of her prognosis. Patient's most significant symptom has been the development of chronic diarrhea, she has had this for about 4 weeks. This is also coincided with intermittent antibiotic use for UTIs. She did test negative for C. difficile, diarrhea has been resistant to Imodium, some improvement in stool consistency with Kaopectate, and found an increase in incontinence with the Metamucil. This is 1 of her main complaints for her quality of life issues, she has no pain or cramping, mostly bloating and gas. She did have a CT scan at the ED on 11/15 without contrast secondary to her creatinine with no obvious underlying etiology of patient's diarrhea.Patient also presents with fatigue, depression, weakness and her greatest concern is her with her increasing care needs. Palliative care meeting with patient and family to define goals of care, assist with advanced care planning, and focus on support for quality of life issues. Medical/Surgical History - Past Medical History Cardiovascular: reports: Congestive heart failure, Hypertension, High cholesterol, Atrial fibrillation (on anticoagulation), Other (carotid dx; varicose vein disorder) Neuro: reports: Parkinson's (atypical Parkinson's/neurogenerative "PSP"), Peripheral neuropathy GI: reports: Chronic diarrhea (3-4 weeks; has had r/o tests/CT scan unknown etiology) BIOLOGY INTERN: reports: Breast cancer : reports: Incontinence, Renal insuffiency (CKD IV) HEENT: reports: Chronic hearing loss Musculoskeletal: reports: Scoliosis, Other (broken coccyx) MRSA Hx?: No - Past Surgical History /BIOLOGY INTERN: reports: Dilation and currettage, Hysterectomy, Mastectomy HEENT: reports: Cataracts, Tonsil/Adenoidectomy, Other Social History - Living Situation Living arrangement: At home Living Situation: With spouse/s.o. Support System: Patient and her have been for 38 years. She has 3 daughters and a son. Her daughter Scarlet is here, she brought her parents up from [place] about 3 years ago. To be able to better support them. She is actively involved in advocating and supporting them with her medical appointments, and assisting with care as available. Patient does have a long-term care policy, and is [facility] for assistance with personal care and respite. Did encourage to access more hours for caregiver support.Patient and are Congregational, have not found a cheondoism community appear, and have limited social support other than family. 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 Family History - Family History Family History: Mother: , Parkinson's Disease, Father: Medications/Allergies - Medications Home Medications: Ambulatory Orders Medication Instructions Recorded Confirmed Carvedilol 3.125 mg PO BID 04/24/17 12/03/18 Spironolactone 1 tab PO DAILY 04/03/18 12/03/18 Cholecalciferol (Vitamin D3) 2,000 units PO DAILY 12/03/18 12/03/18 [Vitamin D3] Losartan Potassium 12.5 mg PO DAILY 12/03/18 12/03/18 Warfarin Sodium [Coumadin] 2 mg PO DAILY 12/03/18 12/03/18 - Allergies Allergies/Adverse Reactions: Allergies Allergy/AdvReac Type Severity Reaction Status Date / Time neomycin Allergy Rash Verified 11/15/18 14:19 pentazocine [From Talwin] Allergy Unknown Verified 04/03/18 10:45 sulfamethoxazole Allergy Unknown Verified 04/03/18 10:45 [From Septra] trimethoprim [From Septra] Allergy Unknown Verified 11/15/18 14:19 Review of Systems - Constitutional Constitutional: reports: Fatigue, Weight loss (117.2 at md office 11/29; 60 pound weight loss over 2 years). denies: Fever, Chills - Eyes Eyes: reports: Vision loss - Ears, Nose & Throat Ears, Nose & Throat: reports: Hearing loss, Other (voice soft) - Cardiovascular Cardiovascular: reports: Decr. exercise tolerance - Gastrointestinal Gastrointestinal: reports: Diarrhea, Change in bowel habits, Bloating, Early satiety. denies: Nausea, Reflux/heartburn - Genitourinary Genitourinary: reports: Dysuria (at times; recently treated UTI), Incontinence - Musculoskeletal Musculoskeletal: reports: Back pain, Stiffness, Limited range of motion, Muscle weakness, Assistive devices (using rolling walker short distances), Transfer issues (has scooter chair) - Integumentary Integumentary: reports: Dryness - Neurological Neurological: reports: General weakness - Psychiatric Psychiatric: reports: Depression, Anxiety - Hematologic/Lymphatic Hematologic/Lymphatic: reports: Anemia, Recurrent infections (utis) - All Other Systems All Other Systems: reports: Reviewed and negative Physical Exam - Vital Signs Temperature: 96.6 C Pulse Rate: 72 Respiratory Rate: 18 O2 Saturation: 98 (ra @ rest) Blood Pressure: 112/52 - Physical Exam General Appearance: positive: Alert, Mild distress Eyes Bilateral: positive: Other (watery) ENT: positive: Other (voice weak;) Neck: positive: No JVD, Trachea midline Cardiovascular: positive: Regular rate & rhythm Respiratory: positive: No respiratory distress, Diminished in bases. negative: Wheezes, Rales, Rhonchi Abdomen: positive: Non-tender, Soft, Abnml bowel sounds (hyperactive), Distended Skin: positive: Dryness, Pressure wound (thinned pink scarred tissue over coccyx; sore with sitting), Other (has support hose on; feet/legs not observed) Extremities: positive: Pedal edema (worse with out stockings; pitting 1+ on exam), Other (difficulty getting from sitting to standing; balance off) Neurologic/Psychiatric: positive: Oriented x3, Weakness, Depressed mood/affect, Flat affect. negative: Slurred/abnml speech (weak) Palliative Care - POLST Patient has POLST: Yes POLST Status: DNR, Selective Treatment (competed at visit; use of antibiotics and no TF) Pain: Location (pain at coccyx and hips; worse with pressure and sitting) Tiredness/Fatigue: Moderate (4-6) Nausea: None Depression: Moderate (4-6) Anorexia: Mild (1-3), Weight loss Sleep: Variable sleep pattern (up to void;) Feelings of wellbeing/Perceived Quality of Life: Poor, Worsening Performance Status: Patient with worsening functional status, ambulating only short distances. Balance complicated by peripheral neuropathy, tends to heel walk and leaning backwards. Patient has not had any recent falls but is at high risk for falls. She does need assistance with bathing, she still participates in some of her household tasks but this takes quite a bit of at [employer] for her. They are working at accommodating her increasing needs for assistance and equipment. Would benefit from physical and occupational therapy. - Palliative Care Discussion: Discussion with patient and her family, regarding goals of care. Patient does recognize the seriousness of her illness, though has not been given any specific prognostication. When told about her CKD stage IV, she did admit she said to her provider this may be her way out. We did discuss in the context of this, that people can live with stage IV for extended period of time. Patient is quite clear she would not want dialysis. We did discuss then what she would lik e, she would like allowing natural , we did complete a POLST with the goals to focus on comfort and quality of life, spending time with family, and the end of life a comfortable respectful at home. She did choose DNA R/DN I but still allowed for selected treatment. At this point in time she would treat reversible conditions, weigh benefits and burdens of decisions as they come up, but would not want anything to prolong her suffering. Did introduce the concept of hospice if patient were to focus on comfort only, currently continues to pursue ongoing support through the medical community. Will follow over the next few weeks, patient depending on her goals, may qualify for hospice if she continues to decline. At this point in time though she wants to focus on improving her quality of life issues, and is quite open to further support in the home, will do a [id number] for home health physical and occupational therapy. With the focus on maintaining her improving her functional status, decreasing her fall risk, and looking at appropriate support through both equipment and services. Results - Lab Results Lab results reviewed: Yes Impression and Recommendations - Palliative Care Impression: This is a leanne 78-year-old woman who has had ongoing decline related to her neuro degenerative disease, more acutely precipitated with onset of chronic diarrhea and weight loss over the last few weeks. Palliative care to provide support regarding symptom management, anticipatory guidance, advanced care planning in today's visit to establish rapport. Recommendations/Counseling Done: 1. Neurodegenerative atypical Parkinson's. Patient presents with ongoing functinal decline, with increased lower extremity weakness, difficulty walking, and worsening peripheral neuropathy. She remains at high risk for falls, is using assistive devices as well as scooter to manage. She is interested in support to physical/occupational therapy in the home setting. Patient also presents with dysphonia, denies trouble with choking, though has had to modify diet for swallowing issues. She declined speech therapy for now, but would be most appropriate in the near future. 2. Chronic diarrhea unknown etiology. Patient at high risk for dehydration, and recurrent UTIs with stool incontinence. Did provide prescription for Lomotil 1-2 tabs up to 4 times a day, will continue to monitor. 3. Stage I decub on coccyx. Counseling provided regarding given increasing incontinence to use Cavilon barrier cream daily, will obtain pressure relief cushion for chair, and memory/supportive mattress for bed for comfort and pressu re relief. 4. Advanced care planning. Family meeting in counseling regarding initiating conversation around goals of care, POLST completed with DNA R/DN I and selective treatments. Requested copy of D POA, would fall to Beni, but recommended a secondary. If not a sign, to give him a form to be able to complete. Counseling provided regarding palliative care versus hospice, as well is an overview of the continuum of care. 5. Caregiver fatigue. Did encourage increased use of hours of [facility], and accessing Parkinson's support group. 6. Depression. Counseling provided regarding identifying priorities in the context of decreased activity tolerance, finding things that bring her jony. Patient does like to oil paint, spending time with family, and finds her loni supportive. Did offer her to follow-up with [facility] regarding home visits from hematology nurse and/or offered palliative care correctional manager. Declined at this time. [id number]. It is a taxing considerable effort for the patient leave the home secondary to her progressive neuro degenerative disease, with difficulty walking, fatigue, and lower extremity weakness. Physical therapy for evaluate and treat for home exercise program fall recovery, and equipment recommendations. OT for home evaluation of bathroom safety, ADL management and equipment needs as well as energy conservation. Time Spent: 75 minutes with greater than 50% of this done in counseling regarding goals of care, establishing rapport, counseling regarding advanced care planning and anticipatory guidance.
== END 2018-12-03 14:31 | disposition home or self-care (01) ==
LOC: PC 14:30
PROVIDERS: ATTEND Nurse Practitioner Adult Health
DX: Z51.5 Encounter for palliative care (principal); G20 Parkinson's disease; K52.9 Noninfective gastroenteritis and colitis, unspecified; F32.9 Major depressive disorder, single episode, unspecified; N18.4 Chronic kidney disease, stage 4 (severe); L89.151 Pressure ulcer of sacral region, stage 1; R62.7 Adult failure to thrive; I48.91 Unspecified atrial fibrillation; I50.9 Heart failure, unspecified; I13.0 Hypertensive heart and chronic kidney disease with heart failure and stage 1 through stage 4 chronic kidney disease, or unspecified chronic kidney disease; R32 Unspecified urinary incontinence; H91.90 Unspecified hearing loss, unspecified ear; Z66 Do not resuscitate; Z79.01 Long term (current) use of anticoagulants
CPT/HCPCS: 99345

== ENCOUNTER 2018-12-08 09:38 | Outpatient (CLI) | payer MEDICARE | END 2018-12-08 09:39 | disposition critical access hospital (66) | LOC: EMS 09:38 | PROVIDERS: ATTEND Surgery | DX: R53.1 Weakness (principal); R53.83 Other fatigue; R50.9 Fever, unspecified; R19.7 Diarrhea, unspecified | CPT/HCPCS: A0425; A0427 ==

== ENCOUNTER 2018-12-08 10:03 | Inpatient (IN) | payer MEDICARE ==
--- NOTE | 2018-12-08 10:32 | ED Physician Documentation ---
PD HPI NVD - Stated complaint Stated Complaint: DIARRHEA - Chief complaint Chief Complaint: Abd Pain - History obtained from History obtained from: Patient, Family, Other (Naa King NP - Palliative Care) - History of Present Illness Timing - onset: How many weeks ago (4-6 weeks) Timing - duration: Weeks (4-6) Timing - details: Abrupt onset, Still present (6 weeks of diarrhea, very persistent the past 4 weeks. Has had stool cultures and lab tests with negative cultures and c.diff testing. Rx with probiotics, imodium. Did have Lomotil and slowed the diarrhea but caused increased cramping. Has GI consult coming this Thursday. Feeling increasingly weak this week and unable to stand/walk on her own the past several days. Poor PO intake due to nausea (without vomiting). Does not have Rx for antiemetics. Had not had antispasmodics.) Associated symptoms: Abdominal pain (cramping diffuse), Loss of appetite, Weight loss. No: Fever, Hematochezia, Near syncope / syncope (but very lightheaded with standing and needing help with walking now.) Contributing factors: No: Sick contact, Bad food, Recent antibiotics Improved by: No: Meds Worsened by: Eating Similar symptoms before: Has not had sx before Recently seen: Clinic, Other (Palliative Care consult few days ago) Review of Systems Constitutional: reports: Chills (the past few days), Fatigue. denies: Fever Nose: reports: Congestion. denies: Rhinorrhea / runny nose Throat: denies: Sore throat Cardiac: denies: Chest pain / pressure Respiratory: reports: Cough. denies: Dyspnea GI: reports: Abdominal Pain, Nausea, Diarrhea. denies: Abdominal Swelling, Vomiting, Constipation, Bloody / black stool : denies: Dysuria, Frequency (has had some decrease in urine output lately) Skin: denies: Rash, Lesions Neurologic: reports: Generalized weakness (due to Parkinsons-like demyelinating disease, seeing Neurology.), Altered mental status (sleepy the past few days). denies: Focal weakness, Numbness, Headache Psychiatric: denies: Anxiety, Insomnia PD PAST MEDICAL HISTORY - Past Medical History Cardiovascular: Congestive heart failure, Hypertension, High cholesterol, Atrial fibrillation (on anticoagulation), Other (carotid dx; varicose vein disorder) Neuro: Other (Parkinson's-like process, that includes general muscle weakness. 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5 mg PO DAILY 12/03/18 12/03/18 Warfarin Sodium [Coumadin] 2 mg PO DAILY 12/03/18 12/03/18 Famotidine 20 mg PO DAILY #30 tablet 12/08/18 Hyoscyamine [Levsin] 0.125 mg SL Q6H PRN #20 tablet 12/08/18 Ondansetron Odt [Zofran] 4 mg TL Q6H PRN #10 tablet 12/08/18 - Allergies Allergies/Adverse Reactions: Allergies Allergy/AdvReac Type Severity Reaction Status Date / Time neomycin Allergy Rash Verified 11/15/18 14:19 pentazocine [From Talwin] Allergy Unknown Verified 04/03/18 10:45 sulfamethoxazole Allergy Unknown Verified 04/03/18 10:45 [From Septra] trimethoprim [From Septra] Allergy Unknown Verified 11/15/18 14:19 - Social History Does the pt smoke?: No Smoking Status: Never smoker Does the pt drink ETOH?: Yes Does the pt have substance abuse?: No - Immunizations Immunizations are current?: Yes Immunizations: Other immun current - POLST Patient has POLST: Yes PD ED PE NORMAL - Vitals Vital signs reviewed: Yes - General General: No acute distress, Well developed/nourished, Other (waxy fascies, poor muscle tone generally. Sleepy but rousable. Able to answer question with short answers. ) - HEENT HEENT: Pharynx benign. No: Moist mucous membranes - Neck Neck: Supple, no meningeal sign, No adenopathy - Cardiac Cardiac: RRR, No murmur - Respiratory Respiratory: Clear bilaterally - Abdomen Abdomen: Soft, Non distended, No organomegaly, Other (general mild tenderness without guarding nor percussion tenderness). No: Normal bowel sounds (increased) - Female Female : Deferred - Rectal Rectal: Deferred - Back Back: No CVA TTP - Derm Derm: Warm and dry. No: Normal color (pale) - Extremities Extremities: No tenderness to palpate, Normal ROM s pain - Neuro Neuro: No sensory deficit, Normal speech, Other (general moderate weakness and she is unable to sit herself up. Can stay sitting on her own briefly once helped up.) Eye Opening: To Voice Motor: Obeys Commands Verbal: Oriented GCS Score: 14 - Psych Psych: No: Normal affect (bland) Results - Vitals Vitals: Vital Signs - 24 hr 12/08/18 12/08/18 12/08/18 11:11 12:13 13:06 Temperature 36.1 C L Heart Rate 79 78 80 Respiratory 20 16 20 Rate Blood Pressure 104/39 L 91/39 L 106/43 L O2 Saturation 99 99 99 12/08/18 12/08/18 12/08/18 14:50 15:25 17:08 Temperature 36.5 C 36.3 C L Heart Rate 84 73 69 Respiratory 18 20 20 Rate Blood Pressure 90/46 L 98/51 L 88/49 L O2 Saturation 100 100 Oxygen O2 Source Nasal cannula - Labs Labs: Microbiology 12/08/18 15:08 Campylobacter Antigen Assay - Final Stool Laboratory Tests 12/08/18 12/08/18 12/08/18 11:40 11:40 11:40 WBC 5.3 RBC 2.94 L Hgb 9.4 L Hct 28.9 L MCV 98.3 MCH 32.0 H MCHC 32.5 RDW 14.2 Plt Count 209 MPV 11.4 H Neut # (Auto) Not Reportable Lymph # (Auto) Not Reportable Whitley # (Auto) Not Reportable Eos # (Auto) Not Reportable Baso # (Auto) Not Reportable Absolute Nucleated RBC Not Reportable Total Counted 100 Band Neuts % (Manual) 30 H Reactive Lymphs % (Man) 1 Abnorm Lymph % (Manual) 0 Metamyelocytes % 4 H Nucleated RBC % Not Reportable Neutrophils # (Manual) 3.0 Lymphocytes # (Manual) 0.8 L Monocytes # (Manual) 1.2 H Eosinophils # (Manual) 0.0 Basophils # (Manual) 0.1 Differential Comment MANUAL DIFFERENTIAL Manual Slide Review Indicated RBC Morph Micro Appear 1+ ANISOCYTOSIS PT INR Sodium 138 Potassium 3.0 L Chloride 102 Carbon Dioxide 26 Anion Gap 10.0 BUN 28 H Creatinine 2.2 H Estimated GFR (MDRD) 21 L Glucose 99 Lactic Acid 1.4 Calcium 8.3 L Phosphorus 3.5 Magnesium 1.7 Total Bilirubin 1.0 AST 21 ALT 18 Alkaline Phosphatase 50 Total Protein 5.6 L Albumin 2.6 L Globulin 3.0 Albumin/Globulin Ratio 0.9 L Lipase 20 L Urine Color Urine Clarity Urine pH Ur Specific Norris Urine Protein Urine Glucose (UA) Urine Ketones Urine Occult Blood Urine Nitrite Urine Bilirubin Urine Urobilinogen Ur Leukocyte Esterase Urine RBC Urine WBC Ur Squamous Epith Cells Amorphous Sediment Urine Bacteria Ur Microscopic Review Urine Culture Comments C. difficile Tox B Gene 12/08/18 12/08/18 12/08/18 13:03 15:08 16:09 WBC RBC Hgb Hct MCV MCH MCHC RDW Plt Count MPV Neut # (Auto) Lymph # (Auto) Whitley # (Auto) Eos # (Auto) Baso # (Auto) Absolute Nucleated RBC Total Counted Band Neuts % (Manual) Reactive Lymphs % (Man) Abnorm Lymph % (Manual) Metamyelocytes % Nucleated RBC % Neutrophils # (Manual) Lymphocytes # (Manual) Monocytes # (Manual) Eosinophils # (Manual) Basophils # (Manual) Differential Comment Manual Slide Review RBC Morph Micro Appear PT 21.1 H INR 1.9 H Sodium Potassium Chloride Carbon Dioxide Anion Gap BUN Creatinine Estimated GFR (MDRD) Glucose Lactic Acid Calcium Phosphorus Magnesium Total Bilirubin AST ALT Alkaline Phosphatase Total Protein Albumin Globulin Albumin/Globulin Ratio Lipase Urine Color DARK YELLOW Urine Clarity HAZY Urine pH 5.5 Ur Specific Norris 1.020 Urine Protein 30 H Urine Glucose (UA) NEGATIVE Urine Ketones NEGATIVE Urine Occult Blood SMALL H Urine Nitrite NEGATIVE Urine Bilirubin NEGATIVE Urine Urobilinogen 0.2 (NORMAL) Ur Leukocyte Esterase NEGATIVE Urine RBC 0-5 Urine WBC 0-3 Ur Squamous Epith Cells RARE Squamous Amorphous Sediment Moderate Urine Bacteria Few Ur Microscopic Review INDICATED Urine Culture Comments NOT INDICATED C. difficile Tox B Gene POSITIVE A* PD MEDICAL DECISION MAKING - ED course Complexity details: reviewed results (she had had recent CT abd in past couple weeks, so did not get one here, given nonfocal tenderness and no peritoneal signs. Got labs to assess lytes and renal function. ), re-evaluated patient (IV fluids and meds. With less nausea and took some sips. Was discussing home with , but patient having trouble with getting up and around. Her daughter, who is primary caregiver with and other family members, was concerned about degree of lifting and help patient needs and unable to get up at all on her own. ), considered differential, d/w patient Departure - Departure Disposition: ED Place in Observation Clinical Impression: Dehydration, Nausea vomiting and diarrhea, Generalized weakness, Hypokalemia CKD (chronic kidney disease) Qualifiers: Chronic kidney disease stage: unspecified stage Qualified Code(s): N18.9 - Chronic kidney disease, unspecified Condition: Stable Record reviewed to determine appropriate education?: Yes Discharge Date/Time: 12/08/18 18:46
[2018-12-08] MEDS ORDERED: SODIUM CHLORIDE 0.9% 1,000 ML IV ONE ×3 (11:24→14:46)
[2018-12-08] MEDS ORDERED: HYOSCYAMINE SL 0.125 MG TABLET SL STA (11:24)
[2018-12-08] MEDS ORDERED: ACETAMINOPHEN 1,000 MG/100 ML 100 ML IV STA (11:25)
[2018-12-08 12:00] LABS: ALBUMIN 2.6 g/dL (3.2-5.5); ALBUMIN/GLOBULIN RATIO 0.9 (1.0-2.2); CALCIUM 8.3 mg/dL (8.5-10.3); CREATININE 2.2 mg/dL (0.4-1.0); MAGNESIUM 1.7 mg/dL (1.7-2.8); PHOSPHORUS 3.5 mg/dL (2.5-4.6); TOTAL PROTEIN 5.6 g/dL (6.7-8.2)
[2018-12-08 13:27] LABS: BASOPHILS % (AUTO) 1.1 %; EOSINOPHILS % (AUTO) 0.2 %; HGB - HEMOGLOBIN 9.4 g/dL (12.0-16.0); LYMPHOCYTES % (AUTO) 9.9 %; MEAN CORPUSCULAR HGB CONC 32.5 g/dL (32.0-36.0); MEAN CORPUSCULAR VOLUME 98.3 fL (81.0-99.0); MEAN PLATELET VOLUME 11.4 fL (7.9-10.8); MONOCYTES % (AUTO) 20.2 %; NEUTROPHILS % (AUTO) 67.8 %; PLT - PLATELET COUNT 209 10^3/uL (130-450); RED BLOOD COUNT 2.94 10^6/uL (4.20-5.40); RED CELL DISTRIBUTION WIDTH 14.2 % (12.0-15.0); WHITE BLOOD COUNT 5.3 x10^3/uL (4.8-10.8)
[2018-12-08] MEDS ORDERED: POTASSIUM CHLOR 10 MEQ/100 ML 10 MEQ/100 ML BAG IV STA (13:28)
[2018-12-08 13:57] LABS: BILIRUBIN,URINE NEGATIVE (NEGATIVE); GLUCOSE, URINE (UA) NEGATIVE (NEGATIVE); KETONES,URINE (UA) NEGATIVE (NEGATIVE); LEUKOCYTE ESTERASE, URINE NEGATIVE (NEGATIVE); NITRITE,URINE NEGATIVE (NEGATIVE); OCCULT BLOOD,URINE SMALL (NEGATIVE); PH,URINE 5.5 PH (5.0-7.5); PROTEIN,URINE 30 mg/dL (NEGATIVE); UROBILINOGEN,URINE 0.2 (NORMAL) E.U./dL (NORMAL)
[2018-12-08 14:01] LABS: CLARITY,URINE HAZY (CLEAR)
[2018-12-08 14:05] LABS: ABNORMAL LYMPHS % (MANUAL) 0 %
[2018-12-08 14:11] LABS: BAND NEUTROPHILS % (MANUAL) 30 %; BASOPHILS # (MANUAL) 0.1 10^3/uL (0-0.1); BASOPHILS % (MANUAL) 2 %; LYMPHOCYTES # (MANUAL) 0.8 10^3/uL (1.5-3.5); LYMPHOCYTES % (MANUAL) 15 %; METAMYELOCYTES % (MANUAL) 4 %; MONOCYTES # (MANUAL) 1.2 10^3/uL (0.0-1.0); RBC MORPHOLOGY (MULTIPLE) 1+ ANISOCYTOSIS (NORMAL)
[2018-12-08 14:12] LABS: DIFFERENTIAL COMMENT MANUAL DIFFERENTIAL
[2018-12-08 14:34] LABS: AMORPHOUS SEDIMENT,UR Moderate /LPF; BACTERIA,URINE Few /HPF (None Seen); RBC,URINE 0-5 /HPF (0-5); SQUAMOUS EPITHELIAL CELL,UR RARE Squamous (<= Few)
[2018-12-08] MEDS ORDERED: DIPHENOX/ATROPINE 2.5/0.025 MG TABLET PO STA (14:46)
[2018-12-08 16:29] LABS: INR 1.9 (0.8-1.2); PT - PROTHROMBIN TIME 21.1 secs (9.9-12.6)
[2018-12-08] MEDS ORDERED: PROCHLORPERAZINE 10 MG/2 ML VIAL IVP PRN (17:41)
[2018-12-08] MEDS ORDERED: ACETAMINOPHEN 325 MG TABLET PO PRN (17:41)
[2018-12-08] MEDS ORDERED: ONDANSETRON 4 MG/2 ML VIAL IVP PRN (17:41)
[2018-12-08] MEDS ORDERED: PROMETHAZINE 25 MG/1 ML VIAL IM PRN (17:41)
[2018-12-08] MEDS ORDERED: POTASSIUM CHLORIDE INJ 40 MEQ in SODIUM CHLORIDE 0.9% 480 ML IV ONE ×2 (17:52→18:54)
[2018-12-08] MEDS ORDERED: metroNIDAZOLE 500 MG/100 ML 500 MG/100 ML BAG IV ONE (17:55)
[2018-12-08] MEDS ORDERED: SACCHAROMYCES BOULARDII 250 MG CAPSULE PO STA (17:56)
[2018-12-08] MEDS ORDERED: PIPERACILLIN/TAZOBACTAM 2.25 GM in SODIUM CHLORIDE 0.9% MINIBAG 100 ML IV SCH (18:00)
[2018-12-08] MEDS ORDERED: SODIUM CHLORIDE 0.9% 1,000 ML IV SCH (18:00)
--- NOTE | 2018-12-08 18:06 | HISTORY & PHYSICAL EXAMINATION ---
Chief Complaint - Chief Complaint Chief Complaint: diarrhea and weakness History of Present Illness - History of Present Illness HPI Comment/Other: Ms. Nieto is a 78-yrs old female with a PMH significant for chronic diarrhea for about 6 weeks, idiopathic peripheral neuropathy, weakness, weight loss of almost 60 pounds over last year, failure to thrive, CHF, afib with Coumadin, HTN, HLD, general muscle weakness with parkinson's-like process, hx of breast cancer, incontinence, CKD stage IV, chronic hearing loss, scoliosis, who present ER complain of diarrhea and generalized weakness. Pt's daughter was in the pt's bedside, who provided the most pt's history. she report pt had about 6 weeks of diarrhea, very persistent the past 4 weeks. Has had twice of stool cultures and lab tests which showed negative stool cultures and negative for c.diff testing. Pt was prescribed probiotics, imodium. But the effect was very limited. Pt had a GI consult coming this Thursday. pt was followup by palliative care. Pt has been to many specialists, without any relief really of any of her symptoms or definition of her prognosis. Pt had large diarrhea with odor smell in ER. Stool test was positive for C.Diff. Pt had potassium 3.0, creatinine 2.2 as her baseli ne. Pt had mild fever at ER, temperature was 38.1, BP 88/49 was as her lowest BP at ER. I discussed with pt's family about the severity of pt's medical problems. pt's daughter understood how severe her mother's medical problems were, and prepared her any outcome or even . Pt's code status were confirmed: DNR and limited intervention, but pt's daughter let pt can be transferred to ICU if medical needed. Pt was admitted for above medical reasons. History - Past Medical History Cardiovascular: reports: Congestive heart failure, Hypertension, High cholesterol, Atrial fibrillation (on anticoagulation), Other (carotid dx; v aricose vein disorder) Neuro: reports: Parkinson's, Other GI: reports: Chronic diarrhea (3-4 weeks; has had r/o tests/CT scan unknown etiology) YOUTUBER: reports: Breast cancer : reports: Incontinence, Renal insuffiency (CKD IV) HEENT: reports: Chronic hearing loss Musculoskeletal: reports: Scoliosis, Other (broken coccyx) MRSA Hx?: Yes - Past Surgical History /YOUTUBER: reports: Dilation and currettage, Hysterectomy, Mastectomy HEENT: reports: Cataracts, Tonsil/Adenoidectomy, Other - Family & Social History Family History: Mother: , Parkinson's Disease, Father: Family History Comment/Other: pt report both her parents . her mother from Parkerson's disease. Social History Notes: Patient and her have been for 38 years. She has 3 daughters and a son. Her daughter Scarlet is here, she brought her parents up from [place] about 3 years ago. To be able to better support them. She is actively involved in advocating and supporting them with her medical appointments, and assisting with care as available. Patient does have a long-term care policy, and is [facility] for assistance with personal care and respite. Did encourage to access more hours for caregiver support.Patient and are [employer], have not found a jain community appear, and have limited social support other than family. 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 - POLST Patient has POLST: Yes Meds/Allgy - Home Medications Home Medications: Ambulatory Orders Medication Instructions Recorded Confirmed Carvedilol 3.125 mg PO BID 04/24/17 12/03/18 Spironolactone 1 tab PO DAILY 04/03/18 12/03/18 Cholecalciferol (Vitamin D3) 2,000 units PO DAILY 12/03/18 12/03/18 [Vitamin D3] Losartan Potassium 12.5 mg PO DAILY 12/03/18 12/03/18 Warfarin Sodium [Coumadin] 2 mg PO DAILY 12/03/18 12/03/18 Famotidine 20 mg PO DAILY #30 tablet 12/08/18 Hyoscyamine [Levsin] 0.125 mg SL Q6H PRN #20 tablet 12/08/18 Ondansetron Odt [Zofran] 4 mg TL Q6H PRN #10 tablet 12/08/18 - Allergies Allergies/Adverse Reactions: Allergies Allergy/AdvReac Type Severity Reaction Status Date / Time neomycin Allergy Rash Verified 11/15/18 14:19 pentazocine [From Talwin] Allergy Unknown Verified 04/03/18 10:45 sulfamethoxazole Allergy Unknown Verified 04/03/18 10:45 [From Septra] trimethoprim [From Septra] Allergy Unknown Verified 11/15/18 14:19 Review of Systems - Constitutional Constitutional: reports: Fatigue, Fever, Weakness, Poor appetite, Weight loss. denies: Chills, Malaise, Diaphoresis, Night sweats, Weight gain Exam - Vital Signs Vital Signs: Vital Signs x48h Temp Pulse Resp BP Pulse Ox 12/08/18 17:08 36.3 C L 69 20 88/49 L 100 12/08/18 15:25 73 20 98/51 L 12/08/18 14:50 36.5 C 84 18 90/46 L 100 12/08/18 13:06 80 20 106/43 L 99 12/08/18 12:13 36.1 C L 78 16 91/39 L 99 12/08/18 11:11 79 20 104/39 L 99 12/08/18 10:21 38.1 C H 72 20 98/48 L 97 12/08/18 10:09 37.2 C 88 16 98/42 L 97 - Physical Exam General Appearance: positive: No acute distress, Alert, Lethargic Eyes Bilateral: positive: Normal inspection, PERRL, No lid inflammation, Conjunctivae nml ENT: positive: ENT inspection nml, Pharynx nml, No signs of dehydration. negative: Purulent nasal drainage, Pharyngeal erythema, Oral lesions Neck: positive: Nml inspection, Thyroid nml, No JVD, Trachea midline. negative: Thyromegaly, Lymphadenopathy (R), Lymphadenopathy (L), Stiff neck, Swelling/bruising, Tracheal deviation Respiratory: positive: Chest non-tender, No respiratory distress, Breath sounds nml. negative: Wheezes, Rales, Rhonchi Cardiovascular: positive: Regular rate & rhythm, No murmur, No gallop. negative: Irregularly irregular, Extrasystoles, Tachycardia, Bradycardia, JVD present, Systolic murmur, Diastolic murmur Peripheral Pulses: positive: 2+ Abdomen: positive: Non-tender, No organomegaly, Nml bowel sounds, No distention. negative: Tenderness, Guarding, Rebound Back: positive: Nml inspection. negative: CVA tenderness (R), CVA tenderness (L) Skin: positive: Color nml, No rash, Warm, Dry. negative: Cyanosis, Diaphoresis, Pallor Extremities: positive: Non-tender, Nml appearance. negative: Calf tenderness, Joint swelling, Tabatha's sign/cords Neurologic/Psychiatric: positive: Sensation nml. negative: Weakness, Sensory loss, Facial droop, Slurred/abnml speech Sepsis Event Note (H) - Evaluation Current Stage of Sepsis: Sepsis Possible source of Sepsis: positive: GI tract/intra-abdominal - Sepsis Criteria Sepsis Criteria: Recorded Temperature greater than 38.3C or Less than 36C, WBC count greater than 10% bands, SBP drop more than 40mHg, Renal: urine output less than 0.5ml/kg/hr for 2 hours or creatinine gr Conclusion/Plan - Problem List (1) C. difficile diarrhea Conclusion/Plan: C.Diff PCR was positive for C.Diff with odor smell diarrhea. pt had lower degree fever treat with oral Vancomycin IVF daily lab and vital monitor (2) Sepsis Conclusion/Plan: pt present hypotension at 88/49, lethargic, significant reduced urinating output. WBC is normal but left shift significantly. treat underline C.Diff with oral vancomycin IVF of NS hold her home BP meds tele and vital monitor (3) Fever Conclusion/Plan: pt has lower degree of fever at 38.1, likely be caused by underline C.Diff colitis. Tylenol PRN treat with oral vancomycin for C.Diff IVF of NC vital monitor closely blood culture (4) Hypotension Conclusion/Plan: pt has BP at 88/49 and lethargic, likely be caused by sepsis from C.Diff colitis NC bolus as needed, precaution of fluid over loaded. pt has hx of CHF tele and vital monitor (5) Generalized weakness Conclusion/Plan: pt had hx of generalized weakness, Parkerson's-like disease, plus acute C.Diff infection, loss of appetite consult with PT/OT, treat with underline of infection, clear liquid diet, advanced diet as the tolerated (6) Nausea Conclusion/Plan: pt report nausea but without vomiting. CT of abdomen about 2 weeks ago did not r eveals acute reason and it was unremarkable. antiemesis PRN (7) Lethargic Conclusion/Plan: The main cause of lethargic can be acute underline c.diff diarrhea, loss of appetite, dehydration treat underline Colitis with oral vancomycin, and IVF discussed with pt's family about the severity of pt's medical problem. pt's daughter understood how severe her mother's medical problems were, and prepared her any outcome or even . pt has been on palliative care (8) Afib Conclusion/Plan: pt has hx of afib with coumadin, with stable HR. pt's INR is 1.9. continue Coumadin, daily PT/INR test. (9) Acute on chronic renal failure Conclusion/Plan: Creatinine is 2.2, closely pt's baseline. plan: keep hydration for pt. pt also has persistent diarrhea, and easy loss of fluid lab monitor and vital monitor (10) CHF (congestive heart failure) Conclusion/Plan: pt has hx of CHF, but no further information in SNAPP'. will order ECHO, and followup precaution of over fluid to pt when hydration to pt (11) Hypokalemia Conclusion/Plan: potassium is 3.0, likely be caused by diarrhea placement of potassium, lab monitor (12) Do not intubate, cardiopulmonary resuscitation (CPR)-only code status Conclusion/Plan: pt and her daughter confirmed pt's code status is DNR, with limited intervention. pt had PLOST - Lab Results Fish Bones: 12/09/18 05:26 12/09/18 05:26 Core Measures - Anticipated LOS I expect patient to be DC'd or transferred within 96 hours.: Yes - DVT/VTE - Prophylaxis VTE/DVT Device ordered at admit?: Yes VTE/DVT Prophylaxis med ordered at admit?: Yes
--- NOTE | 2018-12-08 19:02 | XRAY Report ---
Reason: hypoxia, SOB Procedure Date: 12/08/2018 Accession Number: [id number] / [id number] Procedure: XR - Chest 1 View X-Ray CPT Code: 91498 FULL RESULT: EXAM:CHEST RADIOGRAPHY EXAM DATE: 12/08/2018 06:22 PM. CLINICAL HISTORY: Hypoxia, SOB. COMPARISON: CHEST 2 VIEW 04/24/2017 3:52 PM ABDOMEN/PELVIS W/O 11/15/2018 3:36 PM. TECHNIQUE: 1 view. FINDINGS: Lungs/Pleura: Left upper lobe granulomas. no focal opacities evident. No pleural effusion. No pneumothorax. Mediastinum: Within exam limitations, the cardiomediastinal contour is normal. Other: None. IMPRESSION: No acute cardiopulmonary process. RADIA
[2018-12-08] MEDS: MIDODRINE 2.5 MG TABLET PO SCH ×2 (20:33→21:35)
[2018-12-08] MEDS: VANCOMYCIN 125 MG CAPSULE PO SCH ×2 (20:34→23:23)
[2018-12-08] MEDS ORDERED: HEPARIN 5,000 UNIT/ML VIAL SUBQ SCH (21:00)
[2018-12-08] MEDS: WARFARIN 1 MG TABLET PO SCH (21:45)
[2018-12-08] MEDS ORDERED: MIDODRINE 2.5 MG TABLET PO SCH (22:00)
[2018-12-09] MEDS: VANCOMYCIN 125 MG CAPSULE PO SCH ×5 (00:24→21:12)
[2018-12-09] MEDS: SODIUM CHLORIDE FLUSH 0.9% 10 ML SYRINGE IVP SCH ×3 (00:40→16:32)
[2018-12-09] MEDS: LACTATED RINGERS 1,000 ML IV SCH ×2 (00:41→09:51)
[2018-12-09] MEDS: ZINC OXIDE 20% OINT 30 GM TUBE TOP PRN ×2 (03:08→19:52)
--- NOTE | 2018-12-09 04:49 | Ultrasound Report ---
Reason: oligourine and pain Procedure Date: 12/09/2018 Accession Number: [id number] / [id number] Procedure: US - Retroperitoneal CPT Code: FULL RESULT: EXAM: RENAL ULTRASOUND EXAM DATE: 12/09/2018 04:32 AM. CLINICAL HISTORY: Oligourine and pain. COMPARISON: ABDOMEN/PELVIS W/O 11/15/2018 3:36 PM. TECHNIQUE: Real-time scanning was performed with static images obtained. FINDINGS: Right Kidney: 8.2 x 4.0 x 4.0 cm. Irregular cortical contour which is most prominent along lower pole and may represent scarring. Hypoechoic area measuring 5 x 7 x 5 mm. Several tiny echogenic foci in right kidney may represent nonobstructive calculi. No hydronephrosis. Left Kidney: 9.2 x 4.0 x 4.3 cm. Somewhat limited evaluation of left kidney due to adjacent bowel. No hydronephrosis. Bladder: Left ureteral jet seen. Right ureteral jet not seen. Matthews catheter in the bladder. Bladder nodule anterior to Matthews measuring 1.3 x 1.2 x 1.3 cm with associated flow. Bladder volume 57 cc. Other: Spleen measures 13.1 cm in length. Small perihepatic ascites. IMPRESSION: 1. Suspected right renal scarring and possible subcentimeter right renal cyst. 2. Tiny echogenic foci in right kidney could represent nonobstructive calculi. No hydronephrosis. 3. Matthews catheter within bladder with apparent bladder nodule located anterior to Matthews measuring 1.3 x 1.2 x 1.3 cm with associated flow. Further evaluation is limited due to inadequate distention of bladder. Recommend further workup to assess for bladder mass. 4. Right ureteral jet not seen. 5. Mildly prominent splenic size measuring 13.1 cm. 6. Small perihepatic ascites. RADIA
[2018-12-09] MEDS: MIDODRINE 2.5 MG TABLET PO SCH ×5 (05:19→21:11)
[2018-12-09 05:41] LABS: BASOPHILS % (AUTO) 0.8 %; EOSINOPHILS % (AUTO) 0.3 %; HGB - HEMOGLOBIN 8.9 g/dL (12.0-16.0); LYMPHOCYTES % (AUTO) 6.9 %; MEAN CORPUSCULAR HEMOGLOBIN 31.7 pg (27.0-31.0); MEAN CORPUSCULAR HGB CONC 32.6 g/dL (32.0-36.0); MEAN CORPUSCULAR VOLUME 97.2 fL (81.0-99.0); MEAN PLATELET VOLUME 10.9 fL (7.9-10.8); MONOCYTES % (AUTO) 15.2 %; NEUTROPHILS % (AUTO) 75.2 %; PLT - PLATELET COUNT 229 10^3/uL (130-450); RED BLOOD COUNT 2.81 10^6/uL (4.20-5.40); RED CELL DISTRIBUTION WIDTH 14.5 % (12.0-15.0); WHITE BLOOD COUNT 6.3 x10^3/uL (4.8-10.8)
[2018-12-09 05:44] LABS: ABNORMAL LYMPHS % (MANUAL) 0 %
[2018-12-09 05:47] LABS: INR 2.1 (0.8-1.2)
[2018-12-09 05:58] LABS: CALCIUM 7.9 mg/dL (8.5-10.3); CREATININE 1.6 mg/dL (0.4-1.0); MAGNESIUM 1.6 mg/dL (1.7-2.8); PHOSPHORUS 2.5 mg/dL (2.5-4.6)
[2018-12-09 06:05] LABS: BAND NEUTROPHILS % (MANUAL) 12 %; LYMPHOCYTES # (MANUAL) 0.5 10^3/uL (1.5-3.5); LYMPHOCYTES % (MANUAL) 8 %; MONOCYTES # (MANUAL) 0.7 10^3/uL (0.0-1.0)
[2018-12-09 06:06] LABS: DIFFERENTIAL COMMENT MANUAL DIFFERENTIAL; PLATELET ESTIMATE, MANUAL NORMAL (130-450,000) (NORMAL); PLATELET MORPHOLOGY NORMAL APPEARANCE (NORMAL); RBC MORPHOLOGY (MULTIPLE) NORMAL APPEARANCE (NORMAL)
[2018-12-09] MEDS: SODIUM CHLORIDE FLUSH 0.9% 10 ML SYRINGE IVP PRN (06:08)
[2018-12-09] MEDS: PANTOPRAZOLE 40 MG VIAL IVP SCH (06:08)
[2018-12-09] MEDS ORDERED: POTASSIUM CHLORIDE 20 MEQ TABLET PO ONE (06:32)
[2018-12-09] MEDS ORDERED: MAGNESIUM OXIDE 400 MG TABLET PO ONE (07:00)
[2018-12-09] MEDS ORDERED: SACCHAROMYCES BOULARDII 250 MG CAPSULE PO SCH (08:00)
[2018-12-09] MEDS ORDERED: POTASSIUM CHLORIDE 20 MEQ/15 ML UDC PO ONE (08:30)
[2018-12-09 08:47] LABS: ABSOLUTE RETICS # AUTO 0.056 10^6/uL (0.020-0.110); RED BLOOD COUNT 2.89 10^6/uL (4.20-5.40)
[2018-12-09] MEDS: MAGNESIUM OXIDE 400 MG TABLET PO SCH (08:51)
[2018-12-09] MEDS ORDERED: POLYETHYLENE GLYCOL 3350 17 GM PACKET PO SCH (09:00)
[2018-12-09] MEDS ORDERED: CARVEDILOL 3.125 MG TABLET PO SCH (09:00)
[2018-12-09 09:06] LABS: IRON < 6 ug/dL (28-170); TOTAL IRON BINDING CAPACITY 167 ug/dL (250-450); TRANSFERRIN 119 mg/dL (192-382)
[2018-12-09 10:06] LABS: FERRITIN 252.5 ng/mL (11.0-306.8)
[2018-12-09] MEDS ORDERED: FERRIC GLUCONATE 125 MG in SODIUM CHLORIDE 0.9% 100ML 100 ML IV ONE ×2 (11:08→13:00)
[2018-12-09] MEDS: WARFARIN 1 MG TABLET PO SCH (13:13)
[2018-12-09] MEDS ORDERED: SODIUM CHLORIDE 0.9% 500 ML IV ONE (13:38)
--- NOTE | 2018-12-09 14:29 | CONSULTATION NOTE ---
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 She does have the tendency to all backward/balance issues, and difficulty with gaze an diplopia. Other degenerative changes include that she has had is increased gait problems, rigidity, nonresponsive to multiple medications, i ncreasing difficulty with speech and swallowing, and management of oral secretions. She also has flat affect, though she has not presented with confusion or other issues. Her condition has been complicated by her chronic diarrhea and frequent UTIs, and now presents acutely after 4 weeks of severe diarrhea with C. difficile despite several negative cultures. Patient was having difficulty with hydration status and frequent diarrhea, did try some Lomotil over the weekend, unfortunately it worsened her gas pains and abdominal pain, though it did decrease the diarrhea, by Thursday morning she was running a fever, had lost quite a bit of fluid, was very fatigued, and dehydrated. She was seen in the ED, rehydrated, and found to have C. difficile and admitted inpatient. She is currently receiving treatment with vancomycin fluids and a clear liquid diet. Patient has increased trouble with upper airway secretions, she has been seen by speech therapy in the past, and was to start actually for her speech as her voice is quite quiet and has difficulty projecting. With her increased fluid lo ad, she is sounding a little bit more moist, though she does not have crackles in her bases she is at high risk for fluid overload. Patient does have known chronic kidney disease, patient is quite clear she would not accept dialysis, though she is still CKD stage IV. She has known nonischemic congestive heart failure with atrial fib, currently on warfarin. Palliative care is initiated services to provide a focus on quality of life, patient with increased care needs, loss of independence, high symptom burden, and will benefit from home health RN, PT, OT and ST on discharge from hospital. Social History - Living Situation Living arrangement: At home Living Situation: With spouse/s.o. Support System: Patient lives at home with her Scarlet Swenson her daughter has been providing support through this acute illness, particular the last few days. She is attempting to arrange care and support as she is getting ready to go out of town, her Sister Anita will be coming in to provide support for the week as well. They are arranging with [facility], for increased assistance 5 days a week. Have ordered hospital bed to [facility] with Marquez mattress for pressure relief. Patient does have a commode and bathroom equipment already. Medications/Allergies - Medications Active Medication List: Active Medications Acetaminophen (Tylenol) 650 mg PO Q4HR PRN PRN Reason: Pain 1 to 4 Ferrous Sulfate (Feosol) 325 mg PO DAILYWM [facility] Lactated Ringer's (Lr) 1,000 mls @ 100 mls/hr IV .Q10H [facility] Stop: 12/09/18 19:44 Last Admin: 12/09/18 09:51 Dose: 100 mls/hr Magnesium Oxide (Mag Ox) 400 mg PO DAILYWM [facility] Last Admin: 12/09/18 08:51 Dose: 400 mg Midodrine () 5 mg PO TID [facility] Multi-Ingredient Ointment (Zinc Oxide) 1 applic TOP PRN PRN PRN Reason: Skin Care Last Admin: 12/09/18 03:08 Dose: 1 applic Ondansetron HCl (Zofran Inj) 4 mg IVP Q6HR PRN PRN Reason: Nausea / Vomiting Pantoprazole Sodium (Protonix) 40 mg IVP QDAC [facility] Last Admin: 12/09/18 06:08 Dose: 40 mg Prochlorperazine Edisylate (Compazine Inj) 10 mg IVP Q6HR PRN PRN Reason: Nausea / Vomiting Promethazine HCl (Phenergan Inj) 25 mg IM Q6HR PRN PRN Reason: Nausea / Vomiting Sodium Chloride (Normal Saline Flush 0.9%) 10 ml IVP PRN PRN PRN Reason: NEEDED PER PROVIDER ORDERS Last Admin: 12/09/18 06:08 Dose: 10 ml Sodium Chloride (Normal Saline Flush 0.9%) 10 ml IVP 0100,0900,1700 [facility] Last Admin: 12/09/18 08:51 Dose: 10 ml Vancomycin HCl (Vancocin) 125 mg PO QID [facility] Last Admin: 12/09/18 13:13 Dose: 125 mg Warfarin Sodium (Coumadin) 2 mg PO QDWARFARIN [facility] Last Admin: 12/09/18 13:13 Dose: 2 mg Carvedilol 3.125 mg PO BID 04/24/17 Spironolactone 1 tab PO DAILY 04/03/18 Cholecalciferol (Vitamin D3) [Vitamin D3] 2,000 units PO DAILY 12/03/18 Losartan Potassium 12.5 mg PO DAILY 12/03/18 Warfarin Sodium [Coumadin] 2 mg PO DAILY 12/03/18 - Allergies Allergies/Adverse Reactions: Allergies Allergy/AdvReac Type Severity Reaction Status Date / Time neomycin Allergy Rash Verified 11/15/18 14:19 pentazocine [From ] Allergy Unknown Verified 04/03/18 10:45 sulfamethoxazole Allergy Unknown Verified 04/03/18 10:45 [From ] trimethoprim [From ] Allergy Unknown Verified 11/15/18 14:19 Review of Systems - Constitutional Constitutional: reports: Fatigue, Weight loss. denies: Fever - Eyes Eyes: reports: Vision loss, Dipolpia - Ears, Nose & Throat Ears, Nose & Throat: reports: Dentures, Dry mouth - Cardiovascular Cardiovascular: reports: Edema (chronic LE for about a year), Decr. exercise tolerance - Respiratory Respiratory: reports: Cough (moist upper airway cough) - Gastrointestinal Gastrointestinal: reports: Abdominal pain, Abdominal distention, Diarrhea (still having watery stools and large amount of gas), Bloating, Poor appetite, Early satiety. denies: Nausea - Genitourinary Genitourinary: reports: Other (currently with douglass catheter) - Musculoskeletal Musculoskeletal: reports: Back pain, Muscle aches, Stiffness, Limited range of motion, Muscle weakness, Other (has had functional decline acutely over last week;) - Integumentary Integumentary: reports: Dryness - Neurological Neurological: reports: General weakness, Numbness (LE), Other (speech quiet) - Psychiatric Psychiatric: reports: Depression, Anxiety - Hematologic/Lymphatic Hematologic/Lymphatic: reports: Anemia, Recurrent infections (hx of Utis) - All Other Systems All Other Systems: reports: Reviewed and negative Physical Exam - Vital Signs Vital Signs: Vital Signs x48h Temp Pulse Resp BP Pulse Ox 12/09/18 13:25 90/62 12/09/18 13:00 36.7 C 83 16 106/39 L 100 12/09/18 07:39 37.3 C 85 18 129/46 L 100 - Physical Exam General Appearance: positive: Alert Eyes Bilateral: positive: Other (finds it easier to keep eyes closed; needs to tip gaze back for conversation) ENT: positive: Dry mucous membranes. negative: Pharyngeal erythema Neck: positive: No JVD, Trachea midline Cardiovascular: positive: Regular rate & rhythm Respiratory: positive: Diminished in bases, Rhonchi (upper airway moist) Abdomen: positive: Abnml bowel sounds (hyperactive), Tenderness, Guarding Skin: positive: Pressure wound (coccyx improved; thinned pink skin) Extremities: positive: Other (scds on) Neurologic/Psychiatric: positive: Oriented x3, Mood/affect nml, Weakness, Flat affect (from Parkinsons) Palliative Care - POLST Patient has POLST: Yes POLST Status: DNR, Selective Treatment Pain: Pain improved, Location (Pain continues in the abdomen, worsening right before bowel movement. Still pressure, more tenderness with palpation pain better at rest.) Tiredness/Fatigue: Severe (7-10) Drowsiness/Sedation: Moderate (4-6) Nausea: Mild (1-3) Depression: Mild (1-3) Anxiety: Mild (1-3) Performance Status: Patient had been having decline in her functional status, was able to ambulate with standby assist short distances with a walker, her balance is complicated by her peripheral neuropathy and tends to heel walk leaning backwards. She did have a fall over the weekend, she is needing assistance with bathing. She has been bedbound since she has been here, she does have a Douglass and they are using a bedpan. Had previously discussed getting home therapy prior to hospitalization, will need additional support from RN and would recommend ST as well - Palliative Care Discussion: Patient and palliative care HYDROLOGIC ENGINEER had a chance to sit and discuss patient's current goals of care, fears, and feelings about current situation. Patient does recognize the seriousness of her illness, that most likely her neurological disease/PSP is going to be progressive. She is very sad as her Messi wants her to get better, and gets very frustrated/angry about this is her perception. She reports they are very well matched, and knows that he is just frightened for her. We did discuss the acuteness of her current illness, the hope that she will recover and have an option to improve somewhat. Of concern given her weight loss, loss of strength, and fairly quick decline worried about her returning to improve level of functioning. We did discuss a "new normal" is yet to be seen, and processed her feelings regarding the changes she is been experiencing. Patient is quite articulate and has insight into her current condition. Were able to discuss at some level of what she would want for her end of life, knowing there are some significant decisions in her future, reflected on her mother's in her old age and addressed some of her fears. Results - Lab Results Lab results reviewed: Yes Fish Bones: 12/09/18 05:26 12/09/18 05:26 Lab and Imaging Results: Lab Results x24hrs 12/09/18 12/09/18 12/09/18 Range/Units 08:25 08:25 08:25 WBC (4.8-10.8) x10^3/uL RBC (4.20-5.40) 10^6/uL Hgb (12.0-16.0) g/dL Hct (37.0-47.0) % MCV (81.0-99.0) fL MCH (27.0-31.0) pg MCHC (32.0-36.0) g/dL RDW (12.0-15.0) % Plt Count (130-450) 10^3/uL MPV (7.9-10.8) fL Reticulocyte % (Auto) (0.5-2.3) % Neut # (Auto) Lymph # (Auto) [place] # (Auto) Eos # (Auto) Baso # (Auto) Absolute Nucleated RBC Total Counted Band Neuts % (Manual) (0 - 10) % Reactive Lymphs % (Man) % Abnorm Lymph % (Manual) % Metamyelocytes % ( - 0) % Nucleated RBC % Neutrophils # (Manual) (1.5-6.6) 10^3/uL Lymphocytes # (Manual) (1.5-3.5) 10^3/uL Monocytes # (Manual) (0.0-1.0) 10^3/uL Eosinophils # (Manual) (0-0.7) 10^3/uL Basophils # (Manual) (0-0.1) 10^3/uL Differential Comment WBC Morphology (NORMAL) Platelet Estimate (NORMAL) Platelet Morphology (NORMAL) RBC Morph Micro Appear (NORMAL) Absolute Retic (0.020-0.110) 10^6/uL PT (9.9-12.6) secs INR (0.8-1.2) Sodium (135-145) mmol/L Potassium (3.5-5.0) mmol/L Chloride (101-111) mmol/L Carbon Dioxide (21-32) mmol/L Anion Gap (6-13) BUN (6-20) mg/dL Creatinine (0.4-1.0) mg/dL Estimated GFR (MDRD) (>89) Glucose (70-100) mg/dL Calcium (8.5-10.3) mg/dL Phosphorus (2.5-4.6) mg/dL Magnesium (1.7-2.8) mg/dL Iron < 6 L (28-170) ug/dL TIBC 167 L (250-450) ug/dL Transferrin 119 L (192-382) mg/dL Ferritin 252.5 (11.0-306.8) ng/mL Lactate Dehydrogenase 96 (91-225) IU/L Vitamin B12 2046 H (180-914) pg/mL Urine RBC (0-5) /HPF Urine WBC (0-5) /HPF Ur Squamous Epith Cells (<= Few) Amorphous Sediment /LPF Urine Bacteria (None Seen) /HPF Urine Culture Comments C. difficile Tox B Gene (NEGATIVE) 12/09/18 12/09/18 12/09/18 Range/Units 08:25 05:26 05:26 WBC (4.8-10.8) x10^3/uL RBC 2.89 L (4.20-5.40) 10^6/uL Hgb (12.0-16.0) g/dL Hct (37.0-47.0) % MCV (81.0-99.0) fL MCH (27.0-31.0) pg MCHC (32.0-36.0) g/dL RDW (12.0-15.0) % Plt Count (130-450) 10^3/uL MPV (7.9-10.8) fL Reticulocyte % (Auto) 1.92 (0.5-2.3) % Neut # (Auto) Lymph # (Auto) [place] # (Auto) Eos # (Auto) Baso # (Auto) Absolute Nucleated RBC Total Counted Band Neuts % (Manual) (0 - 10) % Reactive Lymphs % (Man) % Abnorm Lymph % (Manual) % Metamyelocytes % ( - 0) % Nucleated RBC % Neutrophils # (Manual) (1.5-6.6) 10^3/uL Lymphocytes # (Manual) (1.5-3.5) 10^3/uL Monocytes # (Manual) (0.0-1.0) 10^3/uL Eosinophils # (Manual) (0-0.7) 10^3/uL Basophils # (Manual) (0-0.1) 10^3/uL Differential Comment WBC Morphology (NORMAL) Platelet Estimate (NORMAL) Platelet Morphology (NORMAL) RBC Morph Micro Appear (NORMAL) Absolute Retic 0.056 (0.020-0.110) 10^6/uL PT 23.0 H (9.9-12.6) secs INR 2.1 H (0.8-1.2) Sodium 136 (135-145) mmol/L Potassium 3.4 L (3.5-5.0) mmol/L Chloride 105 (101-111) mmol/L Carbon Dioxide 22 (21-32) mmol/L Anion Gap 9.0 (6-13) BUN 26 H (6-20) mg/dL Creatinine 1.6 H (0.4-1.0) mg/dL Estimated GFR (MDRD) 31 L (>89) Glucose 107 H (70-100) mg/dL Calcium 7.9 L (8.5-10.3) mg/dL Phosphorus 2.5 (2.5-4.6) mg/dL Magnesium 1.6 L (1.7-2.8) mg/dL Iron (28-170) ug/dL TIBC (250-450) ug/dL Transferrin (192-382) mg/dL Ferritin (11.0-306.8) ng/mL Lactate Dehydrogenase (91-225) IU/L Vitamin B12 (180-914) pg/mL Urine RBC (0-5) /HPF Urine WBC (0-5) /HPF Ur Squamous Epith Cells (<= Few) Amorphous Sediment /LPF Urine Bacteria (None Seen) /HPF Urine Culture Comments C. difficile Tox B Gene (NEGATIVE) 12/09/18 12/08/18 12/08/18 Range/Units 05:26 16:09 15:08 WBC 6.3 (4.8-10.8) x10^3/uL RBC 2.81 L (4.20-5.40) 10^6/uL Hgb 8.9 L (12.0-16.0) g/dL Hct 27.3 L (37.0-47.0) % MCV 97.2 (81.0-99.0) fL MCH 31.7 H (27.0-31.0) pg MCHC 32.6 (32.0-36.0) g/dL RDW 14.5 (12.0-15.0) % Plt Count 229 (130-450) 10^3/uL MPV 10.9 H (7.9-10.8) fL Reticulocyte % (Auto) (0.5-2.3) % Neut # (Auto) Not Reportable Lymph # (Auto) Not Reportable [place] # (Auto) Not Reportable Eos # (Auto) Not Reportable Baso # (Auto) Not Reportable Absolute Nucleated RBC Not Reportable Total Counted 100 Band Neuts % (Manual) 12 H (0 - 10) % Reactive Lymphs % (Man) % Abnorm Lymph % (Manual) 0 % Metamyelocytes % ( - 0) % Nucleated RBC % Not Reportable Neutrophils # (Manual) 5.1 (1.5-6.6) 10^3/uL Lymphocytes # (Manual) 0.5 L (1.5-3.5) 10^3/uL Monocytes # (Manual) 0.7 (0.0-1.0) 10^3/uL Eosinophils # (Manual) 0.0 (0-0.7) 10^3/uL Basophils # (Manual) 0.0 (0-0.1) 10^3/uL Differential Comment MANUAL DIFFERENTIAL WBC Morphology NORMAL APPEARANCE (NORMAL) Platelet Estimate NORMAL (130-450,000) (NORMAL) Platelet Morphology NORMAL APPEARANCE (NORMAL) RBC Morph Micro Appear NORMAL APPEARANCE (NORMAL) Absolute Retic (0.020-0.110) 10^6/uL PT 21.1 H (9.9-12.6) secs INR 1.9 H (0.8-1.2) Sodium (135-145) mmol/L Potassium (3.5-5.0) mmol/L Chloride (101-111) mmol/L Carbon Dioxide (21-32) mmol/L Anion Gap (6-13) BUN (6-20) mg/dL Creatinine (0.4-1.0) mg/dL Estimated GFR (MDRD) (>89) Glucose (70-100) mg/dL Calcium (8.5-10.3) mg/dL Phosphorus (2.5-4.6) mg/dL Magnesium (1.7-2.8) mg/dL Iron (28-170) ug/dL TIBC (250-450) ug/dL Transferrin (192-382) mg/dL Ferritin (11.0-306.8) ng/mL Lactate Dehydrogenase (91-225) IU/L Vitamin B12 (180-914) pg/mL Urine RBC (0-5) /HPF Urine WBC (0-5) /HPF Ur Squamous Epith Cells (<= Few) Amorphous Sediment /LPF Urine Bacteria (None Seen) /HPF Urine Culture Comments C. difficile Tox B Gene POSITIVE A* (NEGATIVE) 12/08/18 12/08/18 Range/Units 13:03 11:40 WBC (4.8-10.8) x10^3/uL RBC (4.20-5.40) 10^6/uL Hgb (12.0-16.0) g/dL Hct (37.0-47.0) % MCV (81.0-99.0) fL MCH (27.0-31.0) pg MCHC (32.0-36.0) g/dL RDW (12.0-15.0) % Plt Count (130-450) 10^3/uL MPV (7.9-10.8) fL Reticulocyte % (Auto) (0.5-2.3) % Neut # (Auto) Not Reportable Lymph # (Auto) Not Reportable [place] # (Auto) Not Reportable Eos # (Auto) Not Reportable Baso # (Auto) Not Reportable Absolute Nucleated RBC Not Reportable Total Counted 100 Band Neuts % (Manual) 30 H (0 - 10) % Reactive Lymphs % (Man) 1 % Abnorm Lymph % (Manual) 0 % Metamyelocytes % 4 H ( - 0) % Nucleated RBC % Not Reportable Neutrophils # (Manual) 3.0 (1.5-6.6) 10^3/uL Lymphocytes # (Manual) 0.8 L (1.5-3.5) 10^3/uL Monocytes # (Manual) 1.2 H (0.0-1.0) 10^3/uL Eosinophils # (Manual) 0.0 (0-0.7) 10^3/uL Basophils # (Manual) 0.1 (0-0.1) 10^3/uL Differential Comment MANUAL DIFFERENTIAL WBC Morphology (NORMAL) Platelet Estimate (NORMAL) Platelet Morphology (NORMAL) RBC Morph Micro Appear 1+ ANISOCYTOSIS (NORMAL) Absolute Retic (0.020-0.110) 10^6/uL PT (9.9-12.6) secs INR (0.8-1.2) Sodium (135-145) mmol/L Potassium (3.5-5.0) mmol/L Chloride (101-111) mmol/L Carbon Dioxide (21-32) mmol/L Anion Gap (6-13) BUN (6-20) mg/dL Creatinine (0.4-1.0) mg/dL Estimated GFR (MDRD) (>89) Glucose (70-100) mg/dL Calcium (8.5-10.3) mg/dL Phosphorus (2.5-4.6) mg/dL Magnesium (1.7-2.8) mg/dL Iron (28-170) ug/dL TIBC (250-450) ug/dL Transferrin (192-382) mg/dL Ferritin (11.0-306.8) ng/mL Lactate Dehydrogenase (91-225) IU/L Vitamin B12 (180-914) pg/mL Urine RBC 0-5 (0-5) /HPF Urine WBC 0-3 (0-5) /HPF Ur Squamous Epith Cells RARE Squamous (<= Few) Amorphous Sediment Moderate /LPF Urine Bacteria Few (None Seen) /HPF Urine Culture Comments NOT INDICATED C. difficile Tox B Gene (NEGATIVE) Impression and Recommendations - Palliative Care Impression: This is a leanne 78-year-old woman who has been hospitalized for acute illness with a diagnosis of C. difficile, she has been struggling with diarrhea and dehydration more acutely over the last several weeks, with acute symptoms leading to ED visit and hospitalization. 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 Palliative care to provide support regarding symptom management, anticipatory guidance and ongoing advanced care planning. Recommendations/Counseling Done: 1. C. Diff. Patient most likely should be on a prolonged course of vancomycin on transition home given the severity and length of symptoms, did recommend family to continue and reschedule pending GI consult for ongoing guidance. 2. Atypical Parkinson's/PSP. Patient is going to need ongoing assistance regarding functional decline, with increased lower extremity weakness, difficulty walking and worsening peripheral neuropathy. She continues to have high risk for falls, would recommend physical therapy evaluation prior to discharge for transfer training. They are going to have a hospital bed, but will need to see patient's baseline functional status and work with family for safety. Patient also continues with dysphonia, they have been modified her diet for swallowing issues, she is willing to see speech therapy at home would add to her discharge plan. 3. Stage I decub on coccyx. Patient is receiving pressure relief measures here in the hospital, is looking improved. They have gotten a Marquez mattress for the hospital bed. 4. Depression. Counseling provided with acknowledgment of grief and loss issues, looking at lining up her priorities, did have passed her visit today and enjoyed that. 5. Caregiver fatigue. They are going to increase to hours with [facility], Their daughter Anita is coming to help for the week, and can continue to work with home care plan on discharge. 6. Advanced care planning. Patient does have a POLST completed with DNA R/DN I and selective treatments. Is weighing benefits and burdens of decisions as they come up in the context of quality of life as well as quantity of life. [id number]. Is a taxing considerable effort for the patient leave the home secondary progressive neuro degenerative disease, acute hospitalization, lower extremity weakness and difficulty walking. Patient with acute C. difficile infection, RN to evaluate GI status response to medications, teaching regarding skin care, physical therapy to evaluate and treat for home exercise program, fall recovery, safety, and equipment recommendations. OT for home evaluation of bathroom safety, ADL management and equipment needs as well as energy conservation, speech therapy for evaluation of safety of swallow, as well as working with dysphonia and speech. Time Spent: 35 minutes with greater than 50% of this done in counseling regarding goals of care, symptom management, anticipatory guidance and transition home.
--- NOTE | 2018-12-09 15:39 | PROVIDER PROGRESS NOTE ---
Subjective - Prog Note Date Prog Note Date: 12/09/18 - Subjective Pt reports feeling: Improved Subjective: pt report she feel slight better than yesterday but still feel very weak. she report she still has over 5 times of diarrhea, and abdominal cramp. she denies fever, chill, chest pain. Current Medications - Current Medications Current Medications: Active Medications Acetaminophen (Tylenol) 650 mg PO Q4HR PRN PRN Reason: Pain 1 to 4 Last Admin: 12/09/18 14:11 Dose: 650 mg Ferrous Sulfate (Feosol) 325 mg PO DAILYWM [facility] Last Admin: 12/10/18 08:29 Dose: 325 mg Guaifenesin (Mucinex) 600 mg PO BID [facility] Last Admin: 12/10/18 08:29 Dose: 600 mg Magnesium Oxide (Mag Ox) 400 mg PO DAILY[facility] Last Admin: 12/10/18 08:29 Dose: 400 mg Midodrine () 5 mg PO TID [facility] Last Admin: 12/10/18 06:44 Dose: 5 mg Multi-Ingredient Ointment (Zinc Oxide) 1 applic TOP PRN PRN PRN Reason: Skin Care Last Admin: 12/09/18 19:52 Dose: 1 applic Ondansetron HCl (Zofran Inj) 4 mg IVP Q6HR PRN PRN Reason: Nausea / Vomiting Pantoprazole Sodium (Protonix) 40 mg IVP QDAC [facility] Last Admin: 12/10/18 06:44 Dose: 40 mg Prochlorperazine Edisylate (Compazine Inj) 10 mg IVP Q6HR PRN PRN Reason: Nausea / Vomiting Promethazine HCl (Phenergan Inj) 25 mg IM Q6HR PRN PRN Reason: Nausea / Vomiting Sodium Chloride (Normal Saline Flush 0.9%) 10 ml IVP PRN PRN PRN Reason: NEEDED PER PROVIDER ORDERS Last Admin: 12/10/18 06:43 Dose: 10 ml Sodium Chloride (Normal Saline Flush 0.9%) 10 ml IVP 0100,0900,1700 [facility] Last Admin: 12/10/18 03:03 Dose: 10 ml Tramadol HCl (Ultram) 50 mg PO Q4HR PRN PRN Reason: PAIN Vancomycin HCl (Vancocin) 125 mg PO QID [facility] Last Admin: 12/10/18 08:29 Dose: 125 mg Carvedilol 3.125 mg PO BID 04/24/17 Cholecalciferol (Vitamin D3) [Vitamin D3] 2,000 units PO DAILY 12/03/18 Losartan Potassium 12.5 mg PO DAILY 12/03/18 Spironolactone [Aldactone] 25 mg PO DAILY 12/10/18 Warfarin [Coumadin] 2.5 mg PO SUTUWETHSA 12/10/18 Warfarin [Coumadin] 5 mg PO MOFR 12/10/18 Objective - Vital Signs/Intake & Output Reviewed Vital Signs: Yes Vital Signs: Vital Signs x48h Temp Pulse Resp BP Pulse Ox 12/09/18 13:25 90/62 12/09/18 13:00 36.7 C 83 16 106/39 L 100 Intake & Output: Intake & Output 12/06/18 12/07/18 12/08/18 12/09/18 23:59 23:59 23:59 23:59 Intake Total 3850 2841.667 Output Total 600 1140 Balance 3250 1701.667 - Objective General Appearance: positive: Alert, Mild distress, Lethargic Eyes Bilateral: positive: Normal inspection, PERRL, No lid inflammation, Conjunctivae nml ENT: positive: ENT inspection nml, Pharynx nml, No signs of dehydration. negative: Purulent nasal drainage, Pharyngeal erythema, Oral lesions Neck: positive: Nml inspection, Thyroid nml, No JVD, Trachea midline. negative: Thyromegaly, Lymphadenopathy (R), Lymphadenopathy (L), Stiff neck Respiratory: positive: Chest non-tender, No respiratory distress, Breath sounds nml. negative: Wheezes, Rales, Rhonchi Cardiovascular: positive: Regular rate & rhythm, No murmur, No gallop. negative: Irregularly irregular, Extrasystoles, Tachycardia, Bradycardia, JVD present, Systolic murmur, Diastolic murmur Peripheral Pulses: 2+ Radial (R), 2+ Radial (L), 2+ Dorsalis pedis (R), 2+ Dorsalis pedis (L) Abdomen: positive: No organomegaly, Nml bowel sounds, No distention. negative: Tenderness, Guarding, Rebound Back: positive: Nml inspection. negative: CVA tenderness (R), CVA tenderness (L) Skin: positive: Color nml, No rash, Warm, Dry. negative: Cyanosis, Diaphoresis, Pallor Extremities: positive: Non-tender. negative: Calf tenderness, Tabatha's sign/cords Neurologic/Psychiatric: positive: Sensation nml. negative: Weakness, Sensory loss, Facial droop, Slurred/abnml speech, Depressed mood/affect - Lab Results Fish Bones: 12/10/18 05:47 12/10/18 05:47 Other Labs: Lab Results x24hrs 12/09/18 12/09/18 12/09/18 Range/Units 08:25 08:25 08:25 WBC (4.8-10.8) x10^3/uL RBC (4.20-5.40) 10^6/uL Hgb (12.0-16.0) g/dL Hct (37.0-47.0) % MCV (81.0-99.0) fL MCH (27.0-31.0) pg MCHC (32.0-36.0) g/dL RDW (12.0-15.0) % Plt Count (130-450) 10^3/uL MPV (7.9-10.8) fL Reticulocyte % (Auto) (0.5-2.3) % Neut # (Auto) Lymph # (Auto) Weber # (Auto) Eos # (Auto) Baso # (Auto) Absolute Nucleated RBC Total Counted Band Neuts % (Manual) (0 - 10) % Abnorm Lymph % (Manual) % Nucleated RBC % Neutrophils # (Manual) (1.5-6.6) 10^3/uL Lymphocytes # (Manual) (1.5-3.5) 10^3/uL Monocytes # (Manual) (0.0-1.0) 10^3/uL Eosinophils # (Manual) (0-0.7) 10^3/uL Basophils # (Manual) (0-0.1) 10^3/uL Differential Comment WBC Morphology (NORMAL) Platelet Estimate (NORMAL) Platelet Morphology (NORMAL) RBC Morph Micro Appear (NORMAL) Absolute Retic (0.020-0.110) 10^6/uL PT (9.9-12.6) secs INR (0.8-1.2) Sodium (135-145) mmol/L Potassium (3.5-5.0) mmol/L Chloride (101-111) mmol/L Carbon Dioxide (21-32) mmol/L Anion Gap (6-13) BUN (6-20) mg/dL Creatinine (0.4-1.0) mg/dL Estimated GFR (MDRD) (>89) Glucose (70-100) mg/dL Calcium (8.5-10.3) mg/dL Phosphorus (2.5-4.6) mg/dL Magnesium (1.7-2.8) mg/dL Iron < 6 L (28-170) ug/dL TIBC 167 L (250-450) ug/dL Transferrin 119 L (192-382) mg/dL Ferritin 252.5 (11.0-306.8) ng/mL Lactate Dehydrogenase 96 (91-225) IU/L Vitamin B12 2046 H (180-914) pg/mL C. difficile Tox B Gene (NEGATIVE) 12/09/18 12/09/18 12/09/18 Range/Units 08:25 05:26 05:26 WBC (4.8-10.8) x10^3/uL RBC 2.89 L (4.20-5.40) 10^6/uL Hgb (12.0-16.0) g/dL Hct (37.0-47.0) % MCV (81.0-99.0) fL MCH (27.0-31.0) pg MCHC (32.0-36.0) g/dL RDW (12.0-15.0) % Plt Count (130-450) 10^3/uL MPV (7.9-10.8) fL Reticulocyte % (Auto) 1.92 (0.5-2.3) % Neut # (Auto) Lymph # (Auto) Weber # (Auto) Eos # (Auto) Baso # (Auto) Absolute Nucleated RBC Total Counted Band Neuts % (Manual) (0 - 10) % Abnorm Lymph % (Manual) % Nucleated RBC % Neutrophils # (Manual) (1.5-6.6) 10^3/uL Lymphocytes # (Manual) (1.5-3.5) 10^3/uL Monocytes # (Manual) (0.0-1.0) 10^3/uL Eosinophils # (Manual) (0-0.7) 10^3/uL Basophils # (Manual) (0-0.1) 10^3/uL Differential Comment WBC Morphology (NORMAL) Platelet Estimate (NORMAL) Platelet Morphology (NORMAL) RBC Morph Micro Appear (NORMAL) Absolute Retic 0.056 (0.020-0.110) 10^6/uL PT 23.0 H (9.9-12.6) secs INR 2.1 H (0.8-1.2) Sodium 136 (135-145) mmol/L Potassium 3.4 L (3.5-5.0) mmol/L Chloride 105 (101-111) mmol/L Carbon Dioxide 22 (21-32) mmol/L Anion Gap 9.0 (6-13) BUN 26 H (6-20) mg/dL Creatinine 1.6 H (0.4-1.0) mg/dL Estimated GFR (MDRD) 31 L (>89) Glucose 107 H (70-100) mg/dL Calcium 7.9 L (8.5-10.3) mg/dL Phosphorus 2.5 (2.5-4.6) mg/dL Magnesium 1.6 L (1.7-2.8) mg/dL Iron (28-170) ug/dL TIBC (250-450) ug/dL Transferrin (192-382) mg/dL Ferritin (11.0-306.8) ng/mL Lactate Dehydrogenase (91-225) IU/L Vitamin B12 (180-914) pg/mL C. difficile Tox B Gene (NEGATIVE) 12/09/18 12/08/18 12/08/18 Range/Units 05:26 16:09 15:08 WBC 6.3 (4.8-10.8) x10^3/uL RBC 2.81 L (4.20-5.40) 10^6/uL Hgb 8.9 L (12.0-16.0) g/dL Hct 27.3 L (37.0-47.0) % MCV 97.2 (81.0-99.0) fL MCH 31.7 H (27.0-31.0) pg MCHC 32.6 (32.0-36.0) g/dL RDW 14.5 (12.0-15.0) % Plt Count 229 (130-450) 10^3/uL MPV 10.9 H (7.9-10.8) fL Reticulocyte % (Auto) (0.5-2.3) % Neut # (Auto) Not Reportable Lymph # (Auto) Not Reportable Weber # (Auto) Not Reportable Eos # (Auto) Not Reportable Baso # (Auto) Not Reportable Absolute Nucleated RBC Not Reportable Total Counted 100 Band Neuts % (Manual) 12 H (0 - 10) % Abnorm Lymph % (Manual) 0 % Nucleated RBC % Not Reportable Neutrophils # (Manual) 5.1 (1.5-6.6) 10^3/uL Lymphocytes # (Manual) 0.5 L (1.5-3.5) 10^3/uL Monocytes # (Manual) 0.7 (0.0-1.0) 10^3/uL Eosinophils # (Manual) 0.0 (0-0.7) 10^3/uL Basophils # (Manual) 0.0 (0-0.1) 10^3/uL Differential Comment MANUAL DIFFERENTIAL WBC Morphology NORMAL APPEARANCE (NORMAL) Platelet Estimate NORMAL (130-450,000) (NORMAL) Platelet Morphology NORMAL APPEARANCE (NORMAL) RBC Morph Micro Appear NORMAL APPEARANCE (NORMAL) Absolute Retic (0.020-0.110) 10^6/uL PT 21.1 H (9.9-12.6) secs INR 1.9 H (0.8-1.2) Sodium (135-145) mmol/L Potassium (3.5-5.0) mmol/L Chloride (101-111) mmol/L Carbon Dioxide (21-32) mmol/L Anion Gap (6-13) BUN (6-20) mg/dL Creatinine (0.4-1.0) mg/dL Estimated GFR (MDRD) (>89) Glucose (70-100) mg/dL Calcium (8.5-10.3) mg/dL Phosphorus (2.5-4.6) mg/dL Magnesium (1.7-2.8) mg/dL Iron (28-170) ug/dL TIBC (250-450) ug/dL Transferrin (192-382) mg/dL Ferritin (11.0-306.8) ng/mL Lactate Dehydrogenase (91-225) IU/L Vitamin B12 (180-914) pg/mL C. difficile Tox B Gene POSITIVE A* (NEGATIVE) ABX Reporting Has patient been on IV antibiotics over the past 48 hours?: Yes Sepsis Event Note (H) - Evaluation Current Stage of Sepsis: Sepsis Possible source of Sepsis: positive: GI tract/intra-abdominal - Sepsis Criteria Sepsis Criteria: Recorded Temperature greater than 38.3C or Less than 36C, WBC count greater than 10% bands, SBP drop more than 40mHg, Renal: urine output less than 0.5ml/kg/hr for 2 hours or creatinine gr Assessment/Plan - Problem List (1) C. difficile diarrhea Impression: 12/09 pt still had diarrhea over 5 times continue Vancomycin, oral continue IVF, and lab monitor will consider CT of abdomen if clinically pt still did not improve significantly C.Diff PCR was positive for C.Diff with odor smell diarrhea. pt had lower degree fever treat with oral Vancomycin IVF daily lab and vital monitor (2) Sepsis Conclusion/Plan: 12/09 stable, SBP was 129 continue oral Vancomycin continue gently IVF tele and vital monitor pt present hypotension at 88/49, lethargic, significant reduced urinating output. WBC is normal but left shift significantly. treat underline C.Diff with oral vancomycin IVF of NS hold her home BP meds tele and vital monitor (3) Fever Conclusion/Plan: 12/09 no more fever, resolved. will followup blood culture continue oral vancomycin pt has lower degree of fever at 38.1, likely be caused by underline C.Diff colitis. Tylenol PRN treat with oral vancomycin for C.Diff IVF of NC vital monitor closely blood culture (4) Hypotension Conclusion/Plan: 12/09 stable, SBP was 129 now continue gently IVF, and antibiotics oral vancomycin pt has BP at 88/49 and lethargic, likely be caused by sepsis from C.Diff colitis NC bolus as needed, precaution of fluid over loaded. pt has hx of CHF tele and vital monitor (5) Generalized weakness Conclusion/Plan: 12/09 continue PT/OT, will follow up the recommendations pt had hx of generalized weakness, Parkerson's-like disease, plus acute C.Diff infection, loss of appetite consult with PT/OT, treat with underline of infection, clear liquid diet, advanced diet as the tolerated (6) Nausea Conclusion/Plan: 12/09 better controlled pt report nausea but without vomiting. CT of abdomen about 2 weeks ago did not reveals acute reason and it was unremarkable. antiemesis PRN (7) Lethargic Conclusion/Plan: 12/09 improved, pt has more active today The main cause of lethargic can be acute underline c.diff diarrhea, loss of appetite, dehydration treat underline Colitis with oral vancomycin, and IVF discussed with pt's family about the severity of pt's medical problem. pt's daughter understood how severe her mother's medical problems were, and prepared her any outcome or even . pt has been on palliative care (8) Afib Conclusion/Plan: pt has hx of afib with coumadin, with stable HR. pt's INR is 1.9. continue Coumadin, daily PT/INR test. (9) Acute on chronic renal failure Conclusion/Plan: 12/09 improved. today creatinine is 1.6 from 2.2 on yesterday continue hydration, and lab monitor Creatinine is 2.2, closely pt's baseline. plan: keep hydration for pt. pt also has persistent diarrhea, and easy loss of fluid lab monitor and vital monitor (10) CHF (congestive heart failure) Conclusion/Plan: 12/09 ECHO result is still pending, will followup pt has hx of CHF, but no further information in [facility]. will order ECHO, and followup precaution of over fluid to pt when hydration to pt (11) Hypokalemia Conclusion/Plan: 12/09 k is 3.4, placement potassium potassium is 3.0, likely be caused by diarrhea placement of potassium, lab monitor (12) bladder mass 12/09us reveals 1.3 bladder mass, will consider CT to more clarify (13) anemia 12/09 HGB is 8.9 today. iron study reveals significant iron deficiency order IV of iron and iron pill daily lab monitor (14) acute urinary retention 12/09 nurse report pt can not urinate by herself, bladder scan confirmed urinary retention order [facility] with [facility].
[2018-12-09] MEDS ORDERED: traMADol 50 MG TABLET PO PRN (16:43)
--- NOTE | 2018-12-09 19:58 | XRAY Report ---
Reason: cough Procedure Date: 12/09/2018 Accession Number: [id number] / [id number] Procedure: XR - Chest 1 View X-Ray CPT Code: 48524 FULL RESULT: EXAM: CHEST RADIOGRAPHY EXAM DATE: 12/09/2018 06:53 PM. CLINICAL HISTORY: Cough. COMPARISON: CHEST 1 VIEW 12/08/2018 6:06 PM. TECHNIQUE: 1 view. FINDINGS: Lungs/Pleura: Elevated left hemidiaphragm. No infiltrates. No pleural effusions or pneumothorax. Mild prominence of the interstitial markings bilaterally. Mediastinum: Heart size within normal limits. No pulmonary vascular congestion. Other: None. IMPRESSION: 1. Mild prominence of the interstitial markings bilaterally which can be seen with fluid overload. 2. Otherwise, no acute cardiopulmonary process identified radiographically. 3. Elevated left hemidiaphragm. [facility]
[2018-12-09] MEDS: guaiFENesin 600 MG TABLET PO SCH (21:12)
[2018-12-10] MEDS: SODIUM CHLORIDE FLUSH 0.9% 10 ML SYRINGE IVP SCH ×3 (03:03→22:01)
[2018-12-10 05:57] LABS: BASOPHILS % (AUTO) 0.8 %; EOSINOPHILS % (AUTO) 1.7 %; HGB - HEMOGLOBIN 8.9 g/dL (12.0-16.0); LYMPHOCYTES % (AUTO) 7.2 %; MEAN CORPUSCULAR HEMOGLOBIN 31.8 pg (27.0-31.0); MEAN CORPUSCULAR HGB CONC 33.1 g/dL (32.0-36.0); MEAN CORPUSCULAR VOLUME 96.1 fL (81.0-99.0); MEAN PLATELET VOLUME 10.8 fL (7.9-10.8); MONOCYTES % (AUTO) 7.6 %; NEUTROPHILS % (AUTO) 82.2 %; PLT - PLATELET COUNT 261 10^3/uL (130-450); RED CELL DISTRIBUTION WIDTH 14.8 % (12.0-15.0); WHITE BLOOD COUNT 8.9 x10^3/uL (4.8-10.8)
[2018-12-10 06:02] LABS: INR 3.4 (0.8-1.2)
[2018-12-10 06:06] LABS: ABNORMAL LYMPHS % (MANUAL) 0 %; CALCIUM 8.1 mg/dL (8.5-10.3); CREATININE 1.3 mg/dL (0.4-1.0)
[2018-12-10 06:38] LABS: BAND NEUTROPHILS % (MANUAL) 6 %; LYMPHOCYTES # (MANUAL) 0.4 10^3/uL (1.5-3.5); LYMPHOCYTES % (MANUAL) 4 %; MONOCYTES # (MANUAL) 0.1 10^3/uL (0.0-1.0); PLATELET ESTIMATE, MANUAL NORMAL (130-450,000) (NORMAL); RBC MORPHOLOGY (MULTIPLE) NORMAL APPEARANCE (NORMAL)
[2018-12-10 06:39] LABS: DIFFERENTIAL COMMENT MANUAL DIFFERENTIAL
[2018-12-10] MEDS ORDERED: POTASSIUM CHLORIDE 20 MEQ TABLET PO ONE (06:41)
[2018-12-10] MEDS: SODIUM CHLORIDE FLUSH 0.9% 10 ML SYRINGE IVP PRN (06:43)
[2018-12-10] MEDS: MIDODRINE 2.5 MG TABLET PO SCH ×2 (06:44→13:29)
[2018-12-10] MEDS: PANTOPRAZOLE 40 MG VIAL IVP SCH (06:44)
[2018-12-10] MEDS ORDERED: POTASSIUM CHLORIDE 20 MEQ/15 ML UDC PO ONE (08:00)
[2018-12-10] MEDS: VANCOMYCIN 125 MG CAPSULE PO SCH ×4 (08:29→21:58)
[2018-12-10] MEDS: MAGNESIUM OXIDE 400 MG TABLET PO SCH (08:29)
[2018-12-10] MEDS: guaiFENesin 600 MG TABLET PO SCH ×2 (08:29→21:58)
[2018-12-10] MEDS: FERROUS SULFATE 325 MG TABLET PO SCH (08:29)
[2018-12-10] MEDS ORDERED: IOVERSOL 320 100 ML VIAL IVP ONE ×2 (08:49→10:16)
--- NOTE | 2018-12-10 10:37 | CT Report ---
Reason: bladder mass Procedure Date: 12/10/2018 Accession Number: [id number] / [id number] Procedure: CT - Abdomen/Pelvis W CPT Code: FULL RESULT: EXAM: CT ABDOMEN AND PELVIS WITH IV CONTRAST EXAM DATE: 12/10/2018 09:35 AM. CLINICAL HISTORY: Bladder mass. COMPARISONS: 12/09/[address] from 11/15/2018. TECHNIQUE: Routine helical CT imaging was performed through the abdomen and pelvis. IV contrast: 90 cc of Optiray 320. Enteric contrast: No. Reconstructions: Coronal and sagittal. In accordance with CT protocol optimization, one or more of the following dose reduction techniques were utilized for this exam: automated exposure control, adjustment of mA and/or KV based on patient size, or use of iterative reconstructive technique. FINDINGS: Lung Bases: Small bilateral pleural effusions and bibasilar opacities. Included portions of the heart are unremarkable. Small hiatal hernia. Liver: Mild periportal edema. Mild intrahepatic ductal dilatation. Gallbladder/Bile Ducts: Gallbladder is absent. No common bile duct dilatation. Spleen: Normal. Pancreas: Pancreatic parenchymal volume loss. No peripancreatic edema. Adrenal Glands: Normal. Kidneys: Renal parenchymal volume loss. Right renal parenchymal calcification. No hydronephrosis. Peritoneal Cavity/Bowel: Stomach moderately distended. There is mucosal enhancement and thickening of the stomach. No small bowel obstruction or small bowel wall thickening. Extensive mucosal enhancement and thickening is seen involving the descending colon and throughout the sigmoid colon to the rectum and anus. There may be involvement of the ascending colon and cecum as well although no significant involvement of the transverse colon noted. There is mesenteric edema and small volume of fluid. No free air. Pericolonic right-sided calcified fat noted. Appendix not well visualized. Pelvic Organs: Urinary bladder largely decompressed and contains a Matthews catheter. Along the anterior aspect of the urinary bladder is an enhancing polypoid mass measuring approximately 1.5 cm. There is pelvic free fluid. No pelvic adenopathy. Vasculature: Vascular calcifications. No aneurysm. Bones: Degenerative changes of the lumbar spine greatest at L2-L3 and L4-L5. Lumbar facet arthropathy. Degenerative changes of both hip joints. Other: Subcutaneous edema. IMPRESSION: 1. 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 2. Extensive mucosal enhancement and thickening of proximal and distal colon extending to the rectum and anus, findings which can be seen with an extensive inflammatory/infectious colitis. Mucosal enhancement and thickening of the stomach is also present. 3. Small volume of abdominal and pelvic ascites. 4. Small bilateral pleural effusions and bibasilar atelectasis. 5. No enlarged abdominal or pelvic lymph nodes. [facility]
[2018-12-10] MEDS ORDERED: LACTATED RINGERS 1,000 ML IV SCH (12:00)
--- NOTE | 2018-12-10 12:06 | PROVIDER PROGRESS NOTE ---
Subjective - Prog Note Date Prog Note Date: 12/10/18 - Subjective Pt reports feeling: Improved Subjective: pt ate his lunch by herself. pt's daughter report this is the first time pt ate the real solid food for last cough days. pt report she feel significant better. pt denies fever, chill, chest pain, shortness of breath. Current Medications - Current Medications Current Medications: Active Medications Acetaminophen (Tylenol) 650 mg PO Q4HR PRN PRN Reason: Pain 1 to 4 Last Admin: 12/09/18 14:11 Dose: 650 mg Ferrous Sulfate (Feosol) 325 mg PO DAILYWM [facility] Last Admin: 12/10/18 08:29 Dose: 325 mg Guaifenesin (Mucinex) 600 mg PO BID [facility] Last Admin: 12/10/18 08:29 Dose: 600 mg Magnesium Oxide (Mag Ox) 400 mg PO DAILYWM [facility] Last Admin: 12/10/18 08:29 Dose: 400 mg Multi-Ingredient Ointment (Zinc Oxide) 1 applic TOP PRN PRN PRN Reason: Skin Care Last Admin: 12/09/18 19:52 Dose: 1 applic Ondansetron HCl (Zofran Inj) 4 mg IVP Q6HR PRN PRN Reason: Nausea / Vomiting Pantoprazole Sodium (Protonix) 40 mg IVP QDAC [facility] Last Admin: 12/10/18 06:44 Dose: 40 mg Prednisone (Deltasone) 20 mg PO DAILYWM [facility] Last Admin: 12/10/18 13:29 Dose: 20 mg Prochlorperazine Edisylate (Compazine Inj) 10 mg IVP Q6HR PRN PRN Reason: Nausea / Vomiting Promethazine HCl (Phenergan Inj) 25 mg IM Q6HR PRN PRN Reason: Nausea / Vomiting Sodium Chloride (Normal Saline Flush 0.9%) 10 ml IVP PRN PRN PRN Reason: NEEDED PER PROVIDER ORDERS Last Admin: 12/10/18 06:43 Dose: 10 ml Sodium Chloride (Normal Saline Flush 0.9%) 10 ml IVP 0100,0900,1700 [facility] Last Admin: 12/10/18 13:34 Dose: 10 ml Tramadol HCl (Ultram) 50 mg PO Q4HR PRN PRN Reason: PAIN Vancomycin HCl (Vancocin) 125 mg PO QID [facility] Last Admin: 12/10/18 18:07 Dose: 125 mg Carvedilol 3.125 mg PO BID 04/24/17 Cholecalciferol (Vitamin D3) [Vitamin D3] 2,000 units PO DAILY 12/03/18 Losartan Potassium 12.5 mg PO DAILY 12/03/18 Spironolactone [Aldactone] 25 mg PO DAILY 12/10/18 Warfarin [Coumadin] 2.5 mg PO SUTUWETHSA 12/10/18 Warfarin [Coumadin] 5 mg PO MOFR 12/10/18 Objective - Vital Signs/Intake & Output Reviewed Vital Signs: Yes Vital Signs: Vital Signs x48h Temp Pulse Resp BP Pulse Ox 12/10/18 08:07 36.5 C 78 18 122/58 L 95 12/10/18 04:15 36.8 C 83 16 119/60 98 Intake & Output: Intake & Output 12/07/18 12/08/18 12/09/18 12/10/18 23:59 23:59 23:59 23:59 Intake Total 3850 3896.667 240 Output Total 600 1840 1050 Balance 3250 2056.667 -810 - Objective General Appearance: positive: No acute distress, Alert. negative: Lethargic Eyes Bilateral: positive: Normal inspection, PERRL, No lid inflammation, Conjunctivae nml ENT: positive: ENT inspection nml, Pharynx nml, No signs of dehydration. negative: Purulent nasal drainage, Pharyngeal erythema, Oral lesions Neck: positive: Nml inspection, Thyroid nml, No JVD, Trachea midline. negative: Thyromegaly, Lymphadenopathy (R), Lymphadenopathy (L), Stiff neck, Swelling/bruising, Tracheal deviation Respiratory: positive: Chest non-tender, No respiratory distress, Breath sounds nml. negative: Wheezes, Rales, Rhonchi Cardiovascular: positive: Regular rate & rhythm, No murmur, No gallop. negative: Irregularly irregular, Extrasystoles, Tachycardia, Bradycardia, JVD present, Systolic murmur, Diastolic murmur Peripheral Pulses: 2+ Radial (R), 2+ Radial (L), 2+ Dorsalis pedis (R), 2+ Dorsalis pedis (L) Abdomen: positive: Non-tender, No organomegaly, Nml bowel sounds, No distention. negative: Tenderness, Guarding, Rebound Back: positive: Nml inspection. negative: CVA tenderness (R), CVA tenderness (L) Skin: positive: Color nml, No rash, Warm, Dry. negative: Cyanosis, Diaphoresis, Pallor Extremities: positive: Non-tender. negative: Calf tenderness, Tabatha's sign/cords Neurologic/Psychiatric: positive: Sensation nml, Mood/affect nml. negative: Weakness, Sensory loss, Facial droop, Slurred/abnml speech, Depressed mood/affect - Lab Results Fish Bones: 12/10/18 05:47 12/10/18 05:47 Other Labs: Lab Results x24hrs 12/10/18 12/10/18 12/10/18 Range/Units 05:47 05:47 05:47 WBC 8.9 (4.8-10.8) x10^3/uL RBC 2.80 L (4.20-5.40) 10^6/uL Hgb 8.9 L (12.0-16.0) g/dL Hct 26.9 L (37.0-47.0) % MCV 96.1 (81.0-99.0) fL MCH 31.8 H (27.0-31.0) pg MCHC 33.1 (32.0-36.0) g/dL RDW 14.8 (12.0-15.0) % Plt Count 261 (130-450) 10^3/uL MPV 10.8 (7.9-10.8) fL Neut # (Auto) Not Reportable Lymph # (Auto) Not Reportable Dickinson # (Auto) Not Reportable Eos # (Auto) Not Reportable Baso # (Auto) Not Reportable Absolute Nucleated RBC Not Reportable Total Counted 100 Band Neuts % (Manual) 6 (0 - 10) % Abnorm Lymph % (Manual) 0 % Nucleated RBC % Not Reportable Neutrophils # (Manual) 8.5 H (1.5-6.6) 10^3/uL Lymphocytes # (Manual) 0.4 L (1.5-3.5) 10^3/uL Monocytes # (Manual) 0.1 (0.0-1.0) 10^3/uL Eosinophils # (Manual) 0.0 (0-0.7) 10^3/uL Basophils # (Manual) 0.0 (0-0.1) 10^3/uL Differential Comment MANUAL DIFFERENTIAL Platelet Estimate NORMAL (130-450,000) (NORMAL) RBC Morph Micro Appear NORMAL APPEARANCE (NORMAL) PT 38.0 H (9.9-12.6) secs INR 3.4 H (0.8-1.2) Sodium 141 (135-145) mmol/L Potassium 3.4 L (3.5-5.0) mmol/L Chloride 109 (101-111) mmol/L Carbon Dioxide 22 (21-32) mmol/L Anion Gap 10.0 (6-13) BUN 19 (6-20) mg/dL Creatinine 1.3 H (0.4-1.0) mg/dL Estimated GFR (MDRD) 39 L (>89) Glucose 108 H (70-100) mg/dL Calcium 8.1 L (8.5-10.3) mg/dL ABX Reporting Has patient been on IV antibiotics over the past 48 hours?: Yes Sepsis Event Note (H) - Evaluation Current Stage of Sepsis: Sepsis Possible source of Sepsis: positive: GI tract/intra-abdominal - Sepsis Criteria Sepsis Criteria: Recorded Temperature greater than 38.3C or Less than 36C, WBC count greater than 10% bands, SBP drop more than 40mHg, Renal: urine output less than 0.5ml/kg/hr for 2 hours or creatinine gr Assessment/Plan - Problem List (1) C. difficile diarrhea Impression: 12/10 pt still has couples times diarrhea, it seems amount of diarrhea was reduced. CT of abdomen reveals extensive inflammation/infectious colitis start Steroid Predinsone continue Vancomycin oral continue IVF gently 12/09 pt still had diarrhea over 5 times continue Vancomycin, oral continue IVF, and lab monitor will consider CT of abdomen if clinically pt still did not improve significantly C.Diff PCR was positive for C.Diff with odor smell diarrhea. pt had lower degree fever treat with oral Vancomycin IVF daily lab and vital monitor (2) Sepsis Conclusion/Plan: 12/10 hemodynamic stable. 12/09 stable, SBP was 129 continue oral Vancomycin continue gently IVF tele and vital monitor pt present hypotension at 88/49, lethargic, significant reduced urinating output. WBC is normal but left shift significantly. treat underline C.Diff with oral vancomycin IVF of NS hold her home BP meds tele and vital monitor (3) Fever Conclusion/Plan: 12/10 resolve.blood culture is negative 12/09 no more fever, resolved. will followup blood culture continue oral vancomycin pt has lower degree of fever at 38.1, likely be caused by underline C.Diff colitis. Tylenol PRN treat with oral vancomycin for C.Diff IVF of NC vital monitor closely blood culture (4) Hypotension Conclusion/Plan: 12/10 resolved 12/09 stable, SBP was 129 now continue gently IVF, and antibiotics oral vancomycin pt has BP at 88/49 and lethargic, likely be caused by sepsis from C.Diff colitis NC bolus as needed, precaution of fluid over loaded. pt has hx of CHF tele and vital monitor (5) Generalized weakness Conclusion/Plan: 12/10 pt still present profoundly weakness. PT/OT recommend pt for SNF 12/09 continue PT/OT, will follow up the recommendations pt had hx of generalized weakness, Parkerson's-like disease, plus acute C.Diff infection, loss of appetite consult with PT/OT, treat with underline of infection, clear liquid diet, advanced diet as the tolerated (6) Nausea Conclusion/Plan: 12/10 resolved 12/09 better controlled pt report nausea but without vomiting. CT of abdomen about 2 weeks ago did not reveals acute reason and it was unremarkable. antiemesis PRN (7) Lethargic Conclusion/Plan: 12/10 resolved. pt has more active 12/09 improved, pt has more active today The main cause of lethargic can be acute underline c.diff diarrhea, loss of appetite, dehydration treat underline Colitis with oral vancomycin, and IVF discussed with pt's family about the severity of pt's medical problem. pt's daughter understood how severe her mother's medical problems were, and prepared her any outcome or even . pt has been on palliative care (8) Afib Conclusion/Plan: 12/10 stable pt has hx of afib with coumadin, with stable HR. pt's INR is 1.9. continue Coumadin, daily PT/INR test. (9) Acute on chronic renal failure Conclusion/Plan: 12/10 continue improved. creatinine is 1.3 today, continue hydration gently 12/09 improved. today creatinine is 1.6 from 2.2 on yesterday continue hydration, and lab monitor Creatinine is 2.2, closely pt's baseline. plan: keep hydration for pt. pt also has persistent diarrhea, and easy loss of fluid lab monitor and vital monitor (10) diastolic CHF (congestive heart failure) Conclusion/Plan: 12/10 normal EF but with moderate high abnormal right heart pressure pt has diarrhea now, gently IVF for diarrhea. closely monitor pt with tele and vital 12/09 ECHO result is still pending, will followup pt has hx of CHF, but no further information in [employer]. will order ECHO, and followup precaution of over fluid to pt when hydration to pt (11) Hypokalemia Conclusion/Plan: 12/09 k is 3.4, placement potassium potassium is 3.0, likely be caused by diarrhea placement of potassium, lab monitor (12) bladder mass CT reveals polypoid anterior bladder mass. advise pt follow up urologist as needed 12/09us reveals 1.3 bladder mass, will consider CT to more clarify (13) anemia 12/10 stable continue iron pill 12/09 HGB is 8.9 today. iron study reveals significant iron deficiency order IV of iron and iron pill daily lab monitor (14) acute urinary retention 12/10 will d/c [facility] to try if pt can urinate by her self 12/09 nurse report pt can not urinate by herself, bladder scan confirmed urinary retention order [facility].
[2018-12-10] MEDS ORDERED: predniSONE 20 MG TABLET PO SCH ×2 (12:12→13:00)
[2018-12-10] MEDS: predniSONE 20 MG TABLET PO SCH (13:29)
[2018-12-10] MEDS: LACTATED RINGERS 1,000 ML IV SCH (22:00)
[2018-12-11] MEDS: SODIUM CHLORIDE FLUSH 0.9% 10 ML SYRINGE IVP SCH ×2 (01:34→14:43)
[2018-12-11 06:14] LABS: BASOPHILS % (AUTO) 0.1 %; LYMPHOCYTES # (AUTO) 0.4 10^3/uL (1.5-3.5); LYMPHOCYTES % (AUTO) 4.8 %; MEAN CORPUSCULAR HEMOGLOBIN 30.6 pg (27.0-31.0); MEAN CORPUSCULAR HGB CONC 31.7 g/dL (32.0-36.0); MEAN CORPUSCULAR VOLUME 96.3 fL (81.0-99.0); MEAN PLATELET VOLUME 10.5 fL (7.9-10.8); MONOCYTES # (AUTO) 0.3 10^3/uL (0.0-1.0); MONOCYTES % (AUTO) 3.4 %; NEUTROPHILS # (AUTO) 7.5 10^3/uL (1.5-6.6); NEUTROPHILS % (AUTO) 90.5 %; PLT - PLATELET COUNT 273 10^3/uL (130-450); RED BLOOD COUNT 3.27 10^6/uL (4.20-5.40); WHITE BLOOD COUNT 8.3 x10^3/uL (4.8-10.8)
[2018-12-11 06:19] LABS: PT - PROTHROMBIN TIME 33.5 secs (9.9-12.6)
[2018-12-11 06:21] LABS: CALCIUM 8.5 mg/dL (8.5-10.3); CREATININE 1.1 mg/dL (0.4-1.0)
[2018-12-11] MEDS: PANTOPRAZOLE 40 MG VIAL IVP SCH (06:49)
[2018-12-11] MEDS: SODIUM CHLORIDE FLUSH 0.9% 10 ML SYRINGE IVP PRN (06:50)
[2018-12-11] MEDS: VANCOMYCIN 125 MG CAPSULE PO SCH ×2 (08:59→12:30)
[2018-12-11] MEDS: guaiFENesin 600 MG TABLET PO SCH (08:59)
[2018-12-11] MEDS: predniSONE 20 MG TABLET PO SCH (09:00)
[2018-12-11] MEDS: FERROUS SULFATE 325 MG TABLET PO SCH (09:00)
[2018-12-11] MEDS: MAGNESIUM OXIDE 400 MG TABLET PO SCH (09:00)
[2018-12-11] MEDS: LACTATED RINGERS 1,000 ML IV SCH (10:21)
[2018-12-11 11:27] VITALS: BP 134/61
--- NOTE | 2018-12-11 12:42 | Discharge Plan ---
"Discharge Plan for SNF / [facility] - Discharge Plan And Transition Orders Problem Reviewed?: Yes Disposition: 03 SNF DC/Xfer Condition: Poor Allergies and Adverse Reactions: Allergies Allergy/AdvReac Type Severity Reaction Status Date / Time neomycin Allergy Rash Verified 11/15/18 14:19 pentazocine [From Talwin] Allergy Unknown Verified 04/03/18 10:45 sulfamethoxazole Allergy Unknown Verified 04/03/18 10:45 [From Septra] trimethoprim [From Septra] Allergy Unknown Verified 11/15/18 14:19 Health Concerns: c.diff colitis with extensive inflammatory, generalized weakness, afib, diastolic heart failure, bladder mass, acute urinary retention Plan of Treatment: pt was found to have C.diff, pt is prescribed oral vancomycin to finish the treatment course. pt is also prescribed lower dosage of Prednisone for short period time for her extensive inflammatory colon. please according to clinic condition to adjust. followup Medical Administrator as your schedule pt may continue PT/OT training pt's INR is 3.0 today, please monitor pt's PT/INR frequently, pt is on oral vancomycin. New ECHO reveals normal EF with moderate abnormal right heart pressure, pt may continue her homes to manage CT found pt has polypoid 1.5 cm bladder mass, discussed with pt and pt's daughter, and followup urologist as needed pt and family request keep her douglass now. Care Goals: stabilization and improvement of pt's medical conditions Assessment: assessment as the above. - SNF / [facility] Transition Orders Admit to (Facility): [facility] Under the care of (Name): health provider of [facility] Discharge Diagnosis: C.diff colitis, generalized weakness, afib, CKD, diastolic CHF, bladder mass, acute urinary retention. Medicare Certification Statement: I certify that [facility] care is medically necessary on a co ntinuing basis for any of the conditions for which she/he is receiving care during hospitalization. Notify PCP of admission and forward orders to primary provider for signature. Weight on admission and: Daily Call PCP immediately if weight increases by: 2 kg Other Notification Orders: Call PCP immediately if patient develops dyspnea, chest pain/tightness or edema. House Bowel Program: Yes Additional Bowel Program Orders: If no BM after 2 days, nurse may give M.O.M. 30ml PO PRN and/or ducolax Supp 1 [place] and/or LORAINE 250mg P.O., and/or senna 1-2 tabs PO. On day 3 nurse may give repeat above order until residents constipation is resolved. Annual Influenza Vaccine (between Dec 05 and July 04): Yes Two-step PPD per [facility] [phone] or approved exception documents: Yes Treatments & Other Orders: pt may followup health provier in [facility] when pt is arrival. pt was found to have C.diff, pt is prescribed oral vancomycin to finish the treatment course. pt is also prescribed lower dosage of Prednisone for short period time for her extensive inflammatory colon, please according to clinic condition to adjust. followup Medical Administrator as your schedule. pt may continue PT/OT training. pt's INR is 3.0 today, please monitor pt's PT/INR frequently, pt is on oral vancomycin. New ECHO reveals normal EF with moderate abnormal right heart pressure, pt may continue her homes to manage. CT found pt has polypoid 1.5cm bladder mass, discussed with pt and pt's daughter, and followup urologist as needed. pt and family request keep her douglass now. Lab Tests or X-ray Orders: advise check pt's PT/INR in every another day, because pt take oral vancomycin Medication Orders: PLEASE REFER TO THE DISCHARGE MEDICATION LIST. Insulin Orders?: No - Medications New Prescriptions: Famotidine 20 mg PO DAILY #30 tablet Ferrous Sulfate 325 mg PO DAILY #15 tablet Hyoscyamine [Levsin] 0.125 mg SL Q6H PRN #20 tablet PRN Reason: Abdominal Pain Ondansetron Odt [Zofran] 4 mg TL Q6H PRN #10 tablet PRN Reason: Nausea / Vomiting predniSONE [Deltasone] 20 mg PO DAILYWM #4 tablet Vancomycin [Vancocin] 125 mg PO QID #32 capsule - Diet Type: Geriatric Texture: Regular Liquids: Thin May have monthly special meal: Yes - Therapies | Activity Therapy: Evaluation | Treat if indicated: PT, OT Rehabilitation Potential: Maximize functional status Activity: Activity as Tolerated"
--- NOTE | 2018-12-11 14:08 | DISCHARGE SUMMARY ---
Discharge Summary Discharge Date: 12/11/18 Discharging Provider: GONZALEZ Primary Care Provider: Shirley Martinez Condition at Discharge: Poor Discharge Disposition: SNF DC/Xfer Discharge Facility Name: [facility] - DIAGNOSES Admission Diagnoses: (1) C. difficile diarrhea (2) Sepsis (3) Fever (4) Hypotension (5) Generalized weakness (6) Nausea (7) Lethargic (8) Afib (9) Acute on chronic renal failure (10) CHF (congestive heart failure) (11) Hypokalemia Discharge Diagnoses with Status of Each Condition: (1) C. difficile diarrhea diarrhea is controlled. pt tolerate and ate most of her diet. pt denies abdominal pain, nausea or vomiting. pt is prescribed oral vancomycin to finish the treatment course. CT of abdomen reveals extensive inflammation at colon. short term of Prednisone is prescribed for pt. pt has a GI doctor appointment and advise she followup. (2) Sepsis resolved. normal BP. pt is hemodynamic stable, continue her home meds regimen (3) Fever resolved. blood cultur was negative (4) Hypotension resolved. normatensive now (5) Generalized weakness great improvement, continue SNF with PT/OT training (6) Nausea resolved (7) lethargic resolved (8) Afib stable, continue home regimen. because pt take oral vancomycin, advise frequently check PT/INR to adjust Coumadin schedule (9) Acute on chronic renal failure great improved, creatinine is 1.1 today. (10) diastolic CHF (congestive heart failure) ECHO reveals normal EF but with moderate abnormal right heart pressure, continue home meds regimen (11) Hypokalemia resolved (12) bladder mass stable. discussed with pt's family, followup urologist as needed on out-pt (13) anemia great improved. HGB is 10 and increased. pt was found iron deficiency. pt was given IV of iron, and iron pill is prescribed for pt (14) acute urinary retention stabel. pt and her family request to keep [facility]lass now and short term in SNF - HPI History of Present Illness: Ms. Nieto is a 78-yrs old female with a PMH significant for chronic diarrhea for about 6 weeks, idiopathic peripheral neuropathy, weakness, weight loss of almost 60 pounds over last year, failure to thrive, CHF, afib with Coumadin, HTN, HLD, general muscle weakness with parkinson's-like process, hx of breast cancer, incontinence, CKD stage IV, chronic hearing loss, scoliosis, who present ER complain of diarrhea and generalized weakness. Pt's daughter was in the pt's bedside, who provided the most pt's history. she report pt had about 6 weeks of diarrhea, very persistent the past 4 weeks. Has had twice of stool cultures and lab tests which showed negative stool cultures and negative for c.diff testing. Pt was prescribed probiotics, imodium. But the effect was very limited. Pt had a GI consult coming this Thursday. pt was followup by palliative care. Pt has been to many specialists, without any relief really of any of her symptoms or definition of her prognosis. Pt had large diarrhea with odor smell in ER. Stool test was positive for C.Diff. Pt had potassium 3.0, creatinine 2.2 as her baseline. Pt had mild fever at ER, temperature was 38.1, BP 88/49 was as her lowest BP at ER. I discussed with pt's family about the severity of pt's medical problems. pt's daughter understood how severe her mother's medical problems were, and prepared her any outcome or even . Pt's code status were confirmed: DNR and limited intervention, but pt's daughter let pt can be transfe rred to ICU if medical needed. Pt was admitted for above medical reasons. - HOSPITAL COURSE Hospital Course: pt was admitted for uncontrolled diarrhea. pt was found sepsis second to c.diff colitis. pt was found to have uncontrolled diarrhea, hypotension, fever and altered mental status with lethargic. Stool study revealed pt is positive for C.diff. CT of abdomen reveals pt had extensive colon inflammation and infection. pt was treated with oral vancomycin and lower dosage of steroid. pt quickly response to the treatment very well. pt's diarrhea was controlled. pt ate full of her diet. Her BP became normal, and hemodynamic became stable. PT/OT evalua ananya and treated pt and recommended pt for SNF. The detail hospital course is as the blow. 1) C. difficile diarrhea diarrhea is controlled. pt tolerate and ate most of her diet. pt denies abdominal pain, nausea or vomiting. pt is prescribed oral vancomycin to finish the treatment course. CT of abdomen reveals extensive inflammation at colon. short term of Prednisone is prescribed for pt. pt has a GI doctor appointment and advise she followup. (2) Sepsis resolved. normal BP. pt is hemodynamic stable, continue her home meds regimen (3) Fever resolved. blood cultur was negative (4) Hypotension resolved. normatensive now (5) Generalized weakness great improvement, continue SNF with PT/OT training (6) Nausea resolved (7) lethargic resolved (8) Afib stable, continue home regimen. because pt take oral vancomycin, advise frequently check PT/INR to adjust Coumadin schedule (9) Acute on chronic renal failure great improved, creatinine is 1.1 today. (10) diastolic CHF (congestive heart failure) ECHO reveals normal EF but with moderate abnormal right heart pressure, continue home meds regimen (11) Hypokalemia resolved (12) bladder mass stable. discussed with pt's family, followup urologist as needed on out-pt (13) anemia great improved. HGB is 10 and increased. pt was found iron deficiency. pt was given IV of iron, and iron pill is prescribed for pt (14) acute urinary retention stabel. pt and her family request to keep [facility] now and short term in SNF - ALLERGIES Allergies/Adverse Reactions: Allergies Allergy/AdvReac Type Severity Reaction Status Date / Time neomycin Allergy Rash Verified 11/15/18 14:19 pentazocine [From Talwin] Allergy Unknown Verified 04/03/18 10:45 sulfamethoxazole Allergy Unknown Verified 04/03/18 10:45 [From Septra] trimethoprim [From Septra] Allergy Unknown Verified 11/15/18 14:19 - MEDICATIONS Home Medications: Ambulatory Orders Medication Instructions Recorded Confirmed Carvedilol 3.125 mg PO BID 04/24/17 12/10/18 Cholecalciferol (Vitamin D3) 2,000 units PO DAILY 12/03/18 12/10/18 [Vitamin D3] Losartan Potassium 12.5 mg PO DAILY 12/03/18 12/10/18 Famotidine 20 mg PO DAILY #30 tablet 12/08/18 Hyoscyamine [Levsin] 0.125 mg SL Q6H PRN #20 tablet 12/08/18 Ondansetron Odt [Zofran] 4 mg TL Q6H PRN #10 tablet 12/08/18 Spironolactone [Aldactone] 25 mg PO DAILY 12/10/18 12/10/18 Warfarin [Coumadin] 2.5 mg PO SUTUWETHSA 12/10/18 12/10/18 Warfarin [Coumadin] 5 mg PO MOFR 12/10/18 12/10/18 Ferrous Sulfate 325 mg PO DAILY #15 tablet 12/11/18 Vancomycin [Vancocin] 125 mg PO QID #32 capsule 12/11/18 predniSONE [Deltasone] 20 mg PO DAILYWM #4 tablet 12/11/18 - PHYSICAL EXAM AT DISCHARGE General Appearance: positive: No acute distress, Alert. negative: Lethargic Eyes Bilateral: positive: Normal inspection, PERRL, No lid inflammation, Conjunctivae nml ENT: positive: ENT inspection nml, Pharynx nml, No signs of dehydration. negative: Purulent nasal drainage, Pharyngeal erythema, Oral lesions Neck: positive: Nml inspection, Thyroid nml, No JVD, Trachea midline. negative: Thyromegaly, Lymphadenopathy (R), Lymphadenopathy (L), Stiff neck, Swelling/bruising, Tracheal deviation Respiratory: positive: Chest non-tender, No respiratory distress, Breath sounds nml. negative: Wheezes, Rales, Rhonchi Cardiovascular: positive: Regular rate & rhythm, No murmur, No gallop. negative: Irregularly irregular, Extrasystoles, Tachycardia, Bradycardia, JVD present, Systolic murmur, Diastolic murmur Peripheral Pulses: positive: 2+ Abdomen: positive: Non-tender, No organomegaly, Nml bowel sounds, No distention. negative: Tenderness, Guarding, Rebound Back: positive: Nml inspection. negative: CVA tenderness (R), CVA tenderness (L) Skin: positive: Color nml, No rash, Warm, Dry. negative: Cyanosis, Diaphoresis, Pallor Extremities: positive: Non-tender, Nml appearance. negative: Calf tenderness, Joint swelling, Tabatha's sign/cords Neurologic/Psychiatric: positive: Oriented x3, Sensation nml, Mood/affect nml. negative: Weakness, Sensory loss, Facial droop, Slurred/abnml speech, Depressed mood/affect - LABS Result Diagrams: 12/11/18 06:05 12/11/18 06:05 - SEPSIS Current Stage of Sepsis: Sepsis Possible source of Sepsis: GI tract/intra-abdominal Sepsis Criteria: Recorded Temperature greater than 38.3C or Less than 36C, WBC count greater than 10% bands, SBP drop more than 40mHg, Renal: urine output less than 0.5ml/kg/hr for 2 hours or creatinine gr - FOLLOW UP Follow Up: pt was found to have C.diff, pt is prescribed oral vancomycin to finish the treatment course. pt is also prescribed lower dosage of Prednisone for short period time for her extensive inflammatory colon. please according to clinic condition to adjust. followup Motor Vehicle Examiner as your schedule pt may continue PT/OT training pt's INR is 3.0 today, please monitor pt's PT/INR frequently, pt is on oral vancomycin. New ECHO reveals normal EF with moderate abnormal right heart pressure, pt may continue her homes to manage CT found pt has polypoid 1.5 cm bladder mass, discussed with pt and pt's daughter, and followup urologist as needed pt and family request keep her douglass now. advise check pt's PT/INR in every another day, because pt take oral vancomycin - TIME SPENT Time Spent in Discharge (Minutes): 60
[2018-12-11] MEDS ORDERED: CARVEDILOL 3.125 MG TABLET PO SCH (21:00)
[2018-12-12] MEDS ORDERED: SPIRONOLACTONE 25 MG TABLET PO SCH (09:00)
[2018-12-12] MEDS ORDERED: LOSARTAN 50 MG TABLET PO SCH (09:00)
[2018-12-12] MEDS ORDERED: CHOLECALCIFEROL 1,000 UNIT TABLET PO SCH (09:00)
== END 2018-12-11 15:01 | DRG 872 ==
LOC: EDUNIT# → ED 10:03 → MS2 17:41
PROVIDERS: ADMIT Nurse Practitioner Gerontology; ATTEND Nurse Practitioner Gerontology
DX: K52.9 Noninfective gastroenteritis and colitis, unspecified (principal); A41.4 Sepsis due to anaerobes; A04.72 Enterocolitis due to Clostridium difficile, not specified as recurrent; R11.0 Nausea; R53.1 Weakness; N17.9 Acute kidney failure, unspecified; N18.4 Chronic kidney disease, stage 4 (severe); I50.9 Heart failure, unspecified; I50.32 Chronic diastolic (congestive) heart failure; G37.9 Demyelinating disease of central nervous system, unspecified; Z68.1 Body mass index [BMI] 19.9 or less, adult; I13.0 Hypertensive heart and chronic kidney disease with heart failure and stage 1 through stage 4 chronic kidney disease, or unspecified chronic kidney disease; R65.20 Severe sepsis without septic shock; I95.9 Hypotension, unspecified; I48.91 Unspecified atrial fibrillation; N18.9 Chronic kidney disease, unspecified; E87.6 Hypokalemia; E86.0 Dehydration; N32.9 Bladder disorder, unspecified; D50.9 Iron deficiency anemia, unspecified; R33.9 Retention of urine, unspecified; G60.9 Hereditary and idiopathic neuropathy, unspecified; R62.7 Adult failure to thrive; G20 Parkinson's disease; G62.9 Polyneuropathy, unspecified; L89.151 Pressure ulcer of sacral region, stage 1; R13.10 Dysphagia, unspecified; F32.9 Major depressive disorder, single episode, unspecified; R49.0 Dysphonia; Z51.5 Encounter for palliative care; Z66 Do not resuscitate; Z79.01 Long term (current) use of anticoagulants; Z85.3 Personal history of malignant neoplasm of breast; Z79.899 Other long term (current) drug therapy; Z86.14 Personal history of Methicillin resistant Staphylococcus aureus infection; Z90.10 Acquired absence of unspecified breast and nipple; Z87.440 Personal history of urinary (tract) infections; Z91.81 History of falling; Z74.01 Bed confinement status
CPT/HCPCS: 36415; 51701; 71045; 74177; 76770; 80048; 80053; 81001; 82607; 82705; 82728; 83540; 83605; 83615; 83690; 83735; 84100; 84466; 85025; 85044; 85610; 87040; 87045; 87046; 87493; 93005; 93306; 96361; 96365; 96367; 97162; 97166; 97530; 99223; 99284; 99285; A9270; J0131; J2916; J7120; J7512; J8499; Q9967; 81003; 87086

== ENCOUNTER 2018-12-13 08:00 | Outpatient (CLI) | payer MEDICARE ==
[2018-12-13 20:40] LABS: BASOPHILS % (AUTO) 0.3 %; HGB - HEMOGLOBIN 10.1 g/dL (12.0-16.0); LYMPHOCYTES # (AUTO) 0.5 10^3/uL (1.5-3.5); LYMPHOCYTES % (AUTO) 6.4 %; MEAN CORPUSCULAR HEMOGLOBIN 30.5 pg (27.0-31.0); MEAN CORPUSCULAR HGB CONC 30.5 g/dL (32.0-36.0); MEAN PLATELET VOLUME 10.4 fL (7.9-10.8); MONOCYTES # (AUTO) 0.1 10^3/uL (0.0-1.0); MONOCYTES % (AUTO) 1.7 %; NEUTROPHILS # (AUTO) 6.3 10^3/uL (1.5-6.6); NEUTROPHILS % (AUTO) 87.3 %; PLT - PLATELET COUNT 320 10^3/uL (130-450); RED BLOOD COUNT 3.31 10^6/uL (4.20-5.40); RED CELL DISTRIBUTION WIDTH 14.8 % (12.0-15.0); WHITE BLOOD COUNT 7.2 x10^3/uL (4.8-10.8)
[2018-12-13 20:44] LABS: ALBUMIN 2.6 g/dL (3.2-5.5); ALBUMIN/GLOBULIN RATIO 0.9 (1.0-2.2); BILIRUBIN,TOTAL 0.4 mg/dL (0.2-1.0); CALCIUM 8.3 mg/dL (8.5-10.3); CREATININE 1.2 mg/dL (0.4-1.0); TOTAL PROTEIN 5.6 g/dL (6.7-8.2)
== END 2018-12-13 23:59 | disposition home or self-care (01) ==
LOC: LAB.R 08:00
DX: I11.0 Hypertensive heart disease with heart failure (principal); I48.91 Unspecified atrial fibrillation; I50.30 Unspecified diastolic (congestive) heart failure
CPT/HCPCS: 80053; 85025

== ENCOUNTER 2018-12-13 11:45 | Outpatient (CLI) | payer MEDICARE ==
--- NOTE | 2018-12-13 20:42 | CONSULTATION NOTE ---
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 She is recently been hospitalized at [facility] for C. difficile diarrhea, sepsis, hypotension, and acute on chronic renal failure as well as exacerbation of her CHF. She was discharged on 7 and transition to SNF. The goals were to strengthen and focus on rehab, improve her ambulation, endurance, and recovery from C. difficile. Patient had had a 4-week history of intermittent and progressive diarrhea, recurrent UTIs, and ongoing functional decline. 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 Today she has been in the retirement for a few days, she has a Douglass catheter that was placed to monitor her urine output, the reported his urinary retention this is unclear etiology. Patient presents with hematuria, she does have an elevated INR, and finds the catheter uncomfortable. She has decreased the amount of stooling, it is starting to firm up, she still has intermittent abdominal cramping pain that is relieved with stooling. Her abdomen is much softer, less bloated, still with some hyperactive bowel tones. She is pushing fluids, she does have decreased breath sounds in the bases, but no crackles or other signs of fluid overload. She had had some increased lower extremity edema, most likely as result of IV fluids in the hospital, this is resolving. Her appetite is returned, she is on prednisone I suspect this is adding to her feelings of well-being. And she is feeling quite positive that she is starting to recover. Palliative care is new to patient, admitted on 12/03 prior to her hospitalization. Patient with progressive neurological disease, will be continuing on an outpatient basis to provide support and anticipatory guidance. Social History - Living Situation Living arrangement: At home Living Situation: With spouse/s.o. Support System: Patient lives at home with her Messi, she has 2 daughters currently actively involved in her care, and has 2 other children as well[place], Anita her daughter from [place] is providing support for the week. Patient lives in a leanne home, does have some paid caregiving for a few hours a week, this is currently through her long-term care insurance. Concerns remain regarding patient's functional status, and ability to manage her at home long-term. Had a initially set up home health PT/OT, will need to reevaluate if this is still needed on discharge. Medications/Allergies - Medications Home Medications: Ambulatory Orders Medication Instructions Recorded Confirmed Carvedilol 3.125 mg PO BID 04/24/17 12/13/18 Cholecalciferol (Vitamin D3) 2,000 units PO DAILY 12/03/18 12/13/18 [Vitamin D3] Losartan Potassium 12.5 mg PO DAILY 12/03/18 12/13/18 Famotidine 20 mg PO DAILY #30 tablet 12/08/18 12/13/18 Hyoscyamine [Levsin] 0.125 mg SL Q6H PRN #20 tablet 12/08/18 12/13/18 Ondansetron Odt [Zofran] 4 mg TL Q6H PRN #10 tablet 12/08/18 12/13/18 Spironolactone [Aldactone] 25 mg PO DAILY 12/10/18 12/13/18 Ferrous Sulfate 325 mg PO DAILY #15 tablet 12/11/18 12/13/18 Vancomycin [Vancocin] 125 mg PO QID #32 capsule 12/11/18 12/13/18 predniSONE [Deltasone] 20 mg PO DAILYWM #4 tablet MDD 12/11/18 12/13/18 until 12/15 - Allergies Allergies/Adverse Reactions: Allergies Allergy/AdvReac Type Severity Reaction Status Date / Time neomycin Allergy Rash Verified 11/15/18 14:19 pentazocine [From win] Allergy Unknown Verified 04/03/18 10:45 sulfamethoxazole Allergy Unknown Verified 04/03/18 10:45 [From Septra] trimethoprim [From ] Allergy Unknown Verified 11/15/18 14:19 Review of Systems - Constitutional Constitutional: reports: Fatigue, Other (need accurate weight). denies: Fever, Chills - Eyes Eyes: reports: Vision loss, Dipolpia - Ears, Nose & Throat Ears, Nose & Throat: reports: Hearing loss (mild), Nasal congestion, Dry mouth - Cardiovascular Cardiovascular: reports: Exertional dyspnea, Decr. exercise tolerance - Respiratory Respiratory: denies: SOB at rest - Gastrointestinal Gastrointestinal: reports: Abdominal pain (less but still gassy/intermittent), Diarrhea (less frequent; firming up today), Bloating, Good appetite. denies: Nausea - Genitourinary Genitourinary: reports: Hematuria (urine dark with large amount blood; light yellow in tubing), Other (douglass catheter with discomfort) - Musculoskeletal Musculoskeletal: reports: Stiffness, Muscle weakness, Assistive devices (working with PT) - Integumentary Integumentary: reports: Dryness - Neurological Neurological: reports: General weakness - Hematologic/Lymphatic Hematologic/Lymphatic: reports: Anemia, Recurrent infections (UTIS) - All Other Systems All Other Systems: reports: Reviewed and negative Physical Exam - Vital Signs Temperature: 97.8 C Pulse Rate: 80 Respiratory Rate: 18 Blood Pressure: 122/68 - Physical Exam General Appearance: positive: No acute distress, Alert Eyes Bilateral: positive: Normal inspection ENT: positive: No signs of dehydration, Other (dentures) Neck: positive: No JVD, Trachea midline Cardiovascular: positive: Regular rate & rhythm Respiratory: positive: No respiratory distress, Diminished in bases. negative: Wheezes, Rales, Rhonchi Abdomen: positive: Soft, Tenderness Skin: positive: Pallor, Pressure wound (coccyx still sore; getting seat cushion thru PT) Extremities: positive: No pedal edema (trace/cold to touch) Neurologic/Psychiatric: positive: Oriented x3, Mood/affect nml, Weakness, Flat affect Palliative Care - POLST Patient has POLST: Yes POLST Status: DNR, Selective Treatment Pain: Pain improved, Location (abdomen) Tiredness/Fatigue: Moderate (4-6) Drowsiness/Sedation: Mild (1-3) Nausea: None Depression: Mild (1-3) Anxiety: Mild (1-3) Dyspnea: Mild (1-3) Anorexia: None Sleep: Sleep improved Performance Status: Patient is quite excited to be working with therapy, her baseline prior to admit had been declining fairly rapidly. She is only been able to walk short distances, and was needing more assistance with transfers and personal care. She is also having increased trouble with oral secretions, no choking but some difficulty with swallowing particularly around pills. She was having dystonia and difficulty projecting her voice. - Palliative Care Discussion: Patient is quite pragmatic regarding her underlying neurological disease. She is still wanting to focus on quantity and quality of life in the context of her goals. She is hopeful to return to some level of improved functioning, less dependence, but does understand the seriousness of her illness. She does have a POLST, with DNA R/selective treatments, with the goal to weigh benefits and burdens of treatment decisions as a come along. 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 Results - Lab Results Lab results reviewed: Yes Lab and Imaging Results: Consult with Dr. Chairez regarding concerns of hematuria, will go ahead and order CBC patient does have baseline anemia and poor kidney function. Patient also with elevated INR over the weekend, did receive 2.5 mg of Coumadin today, discussed holding tomorrow and continue to watch closely given her hematuria. Impression and Recommendations - Palliative Care Impression: This is a leanne 78-year-old woman with progressive supranuclear palsy, atypical Parkinson's who presents with an acute illness of C. difficile, and now hematuria. She is currently at the SNF with the goal for improving functional status, ease of caregiver burden, and recovery from her acute illness. Palliative care providing support regarding pain and symptom management, and anticipatory guidance. Recommendations/Counseling Done: 1. Hematuria. This is multifactorial in origin, patient does have elevated INR, now presents with an unknown polypoid mass in anterior bladder, Currently has a Douglass catheter. In consult the nursing aide, Dr. Chairez, Recommendation to remove Douglass catheter. Orders written for removal, to check postvoid residual in 6 to 8 hours, and at replace if greater than 250 mils secondary concerns of retention. Also to check PVR if patient shows signs or symptoms of discomfort or retention PRN. Will hold Coumadin and recheck INR in a.m. As well as follow-up on CBC. Request for urology consult [facility], as they are in [place] currently as well as to her primary care Shirley Reaves PA-C in the context she is a [facility] patient. Goal is to have a visit in the next 1 to 2 weeks to follow-up on findings on CT scan. 2. C. difficile. Patient is having decreased stooling, firming up of stool and does not feel better as far as improved pain and abdominal cramping. Patient does have a pending GI consult, recommended to continue to keep that appointment after discharge. Given her prolonged period of diarrhea, and difficulty with serious infection, will be important as she is at high risk for recurrence. 3. Stage I decub coccyx. Order daily Cavilon barrier cream, particularly since will be without catheter, patient does have some baseline incontinence. Therapy getting her a wheelchair cushion, for support. Patient does have new hospital bed at home, as well as Marquez mattress, and cushions for chairs in the home setting. 4. Anorexia. Patient is feeling quite positive as far as her appetite, enjoying the food at the SNF, and hoping to gain some weight. Patient has had profound weight loss over the last year of at least 60 pounds. Patient scheduled to be on prednisone through 12/15. Patient may benefit on a extended course for appetite stimulant at lower dose of 10 mg for another couple of weeks. 5. Advanced care planning. Patient's goals currently are to address her acute illness issues of C. difficile, hematuria, recurrent UTIs/new findings of small bladder mass. Patient is hopeful to have improved functional status, is looking forward to working with rehab therapies and quite motivated. Goal is for patient to transition back home, with appropriate support and services. She has good social support, palliative care to continue provide support on an outpatient basis. Will follow up on transition home unless otherwise contacted. Time Spent: 60 minutes with greater than 50% of this done in counseling and coordination of care with Dr. Chairez regarding patient's acute care needs. [facility]
== END 2018-12-13 11:46 | disposition home or self-care (01) ==
LOC: PC 11:45
PROVIDERS: ATTEND Nurse Practitioner Adult Health
DX: Z51.5 Encounter for palliative care (principal); G20 Parkinson's disease; R31.9 Hematuria, unspecified; A04.72 Enterocolitis due to Clostridium difficile, not specified as recurrent; L89.151 Pressure ulcer of sacral region, stage 1; R63.0 Anorexia; K52.9 Noninfective gastroenteritis and colitis, unspecified; F32.9 Major depressive disorder, single episode, unspecified; I48.91 Unspecified atrial fibrillation; H53.2 Diplopia; H91.90 Unspecified hearing loss, unspecified ear; Z66 Do not resuscitate; Z79.01 Long term (current) use of anticoagulants; Z87.440 Personal history of urinary (tract) infections
CPT/HCPCS: 99310

== ENCOUNTER 2018-12-16 22:00 | Outpatient (CLI) | payer MEDICARE ==
[2018-12-17 01:00] LABS: BILIRUBIN,URINE NEGATIVE (NEGATIVE); GLUCOSE, URINE (UA) NEGATIVE (NEGATIVE); KETONES,URINE (UA) NEGATIVE (NEGATIVE); LEUKOCYTE ESTERASE, URINE SMALL (NEGATIVE); NITRITE,URINE POSITIVE (NEGATIVE); OCCULT BLOOD,URINE TRACE-LYSE (NEGATIVE); PH,URINE 6.5 PH (5.0-7.5); PROTEIN,URINE NEGATIVE (NEGATIVE); UROBILINOGEN,URINE 0.2 (NORMAL) E.U./dL (NORMAL)
[2018-12-17 01:02] LABS: CLARITY,URINE HAZY (CLEAR)
[2018-12-17 01:06] LABS: BACTERIA,URINE Moderate /HPF (None Seen); RBC,URINE 0-5 /HPF (0-5); SQUAMOUS EPITHELIAL CELL,UR RARE Squamous (<= Few)
== END 2018-12-16 23:59 | disposition home or self-care (01) ==
LOC: LAB.R 22:00
DX: R39.0 Extravasation of urine (principal)
CPT/HCPCS: 81001; 81003; 87086; 87181

== ENCOUNTER 2018-12-29 14:05 | Outpatient (CLI) | payer MEDICARE | END 2018-12-29 14:06 | disposition home or self-care (01) | LOC: LAB.S 14:05 | PROVIDERS: ATTEND Emergency Medicine | DX: I48.91 Unspecified atrial fibrillation (principal) | CPT/HCPCS: 85610 ==

== ENCOUNTER 2019-01-03 13:26 | Outpatient (CLI) | payer MEDICARE | END 2019-01-03 13:27 | disposition home or self-care (01) | LOC: LAB.S 13:26 | PROVIDERS: ATTEND Emergency Medicine | DX: I48.91 Unspecified atrial fibrillation (principal) | CPT/HCPCS: 85610 ==

== ENCOUNTER 2019-01-04 15:45 | Outpatient (CLI) | payer MEDICARE ==
--- NOTE | 2019-01-04 21:19 | CONSULTATION NOTE ---
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 She was hospitalized at [facility] and discharged and 10/22 as a result of C. difficile diarrhea, sepsis, hypotension, and acute on chronic renal failure. She had been having intermittent diarrhea for greater than a month, with abdominal pain and progressive pain and cramping, weight loss, weakness, she had had multiple UTIs, with antibiotic exposure, unfortunately she did not test positive for C. Diff during that time, and continued to deteriorate until she was hospitalized. She was found on CT abdomen and pelvis with IV contrast to have extensive mucosal enhancement and thickening of proximal and distal colon extending to the rectum and anus, consistent with extensive inflammatory/infectious colitis. She also had mucosal enhancement and thickening of the stomach. An incidental finding of polypoid 1.5 anterior urinary bladder mass was found, she is pending urology appointment on 01/18. She was then transferred to the SNF, where she had had rehab. She did have significant improvement in her functional status, she worked with PT/OT/ST. She does feel like she has lost some of her progression, and presents with ongoing neuro degenerative disease deficits particularly with her ambulation. She has been home for about a week, is doing fairly well. She has gained weight from 04 15-04 19. She is trying to regain weight, she has lost around 50 pounds. She reports she is having soft formed stools in the a.m., but some mucosal clear discharge intermittently after this. She has no pain or cramping, her abdomen is rounded with no hyperactive bowel tones or tenderness. She denies any choking, though her voice continues to be quite weak, she has difficulty getting from sitting to standing. She is having more trouble with her right foot and some fenestration. She is doing her home exercise program, but is severely fatigued by it. She has had no further hematuria, but does report some mild retentive symptoms as well as intermittent bladder spasms. She is due to see Dr. Nica HARVEY tomorrow for GI, remains at high risk for recurrent C. diff. Continues to meet with nephrology in [place] on 01/20. She had one-point presented with acute on chronic stage IV chronic to his kidney disease, but her numbers have improved most likely with improvement of her hydration status and treatment of her C. difficile. On 12/13 she presented with CKD stage IIIb with a BUN of 23; creatinine 1.2; GFR 43 Social History - Living Situation Living arrangement: At home Living Situation: With spouse/s.o. Support System: She does slowly continue to improve, Is needing contact assist for getting to sit to stand and ambulation. She does need assistance with dressing and meal prep. She is able to feed herself. Her Messi is her 27/10 caregiver, they do have caregivers daily for several hours to assist with personal care, bathing, as well as meal prep. Her daughters have been taking turns and visiting to provide support, also advocacy and transportation to appointments. Her daughter Anita from [place] just arrived, and will be serving this role over the next week. Her daughter Scarlet lives on the [place], and has been providing support too. They did move up from [place], she has been somewhat frail, so are not well integrated into the community for increased support, but have significant amount of family tension and support. 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 Medications/Allergies - Medications Home Medications: Ambulatory Orders Medication Instructions Recorded Confirmed Carvedilol 3.125 mg PO BID 04/24/17 01/05/19 Cholecalciferol (Vitamin D3) 2,000 units PO DAILY 12/03/18 01/05/19 [Vitamin D3] Losartan Potassium 12.5 mg PO DAILY 12/03/18 01/05/19 Famotidine 20 mg PO DAILY #30 tablet 12/08/18 01/05/19 Hyoscyamine [Levsin] 0.125 mg SL Q6H PRN #20 tablet 12/08/18 01/05/19 Ondansetron Odt [Zofran] 4 mg TL Q6H PRN #10 tablet 12/08/18 01/05/19 Spironolactone [Aldactone] 25 mg PO DAILY 12/10/18 01/05/19 Ferrous Sulfate 325 mg PO DAILY #15 tablet 12/11/18 01/05/19 Lactobacillus Acidophilus 1 tab PO DAILY 01/05/19 01/05/19 [Probiotic Acidophilus] Warfarin [Coumadin] 2.5 mg PO DAILY 01/05/19 01/05/19 - Allergies Allergies/Adverse Reactions: Allergies Allergy/AdvReac Type Severity Reaction Status Date / Time neomycin Allergy Rash Verified 11/15/18 14:19 pentazocine [From ] Allergy Unknown Verified 04/03/18 10:45 sulfamethoxazole Allergy Unknown Verified 04/03/18 10:45 [From Septra] trimethoprim [From ] Allergy Unknown Verified 11/15/18 14:19 Review of Systems - Constitutional Constitutional: reports: Fatigue, Weight gain (114). denies: Fever, Chills - Eyes Eyes: reports: Vision loss - Ears, Nose & Throat Ears, Nose & Throat: reports: Dry mouth, Other (weak voice) - Cardiovascular Cardiovascular: reports: Edema (LE), Exertional dyspnea, Decr. exercise tolerance - Respiratory Respiratory: denies: SOB at rest - Gastrointestinal Gastrointestinal: reports: Abdominal distention, Reflux/heartburn (mild and occasional), Bloating, Good appetite. denies: Abdominal pain, Diarrhea, Nausea - Genitourinary Genitourinary: reports: Incontinence (intermittent; improved). denies: Dysuria, Hematuria - Musculoskeletal Musculoskeletal: reports: Stiffness, Limited range of motion, Muscle weakness, Assistive devices (uses rolling walker), Transfer issues (has scooter) - Integumentary Integumentary: reports: Dryness, Pigment changes (LE) - Neurological Neurological: reports: General weakness, Abnormal gait, Other - Psychiatric Psychiatric: reports: Depression, Anxiety - Endocrine Endocrine: reports: Other (hyperglycemia with prednisone) - Hematologic/Lymphatic Hematologic/Lymphatic: reports: Anemia (12/13 10.1; 33.1), Recurrent infections (utis/ recent cdiff) - All Other Systems All Other Systems: reports: Reviewed and negative Physical Exam - Vital Signs Temperature: 98.1 C Pulse Rate: 72 Respiratory Rate: 18 Blood Pressure: 132/84 - Physical Exam General Appearance: positive: No acute distress, Alert Eyes Bilateral: positive: Normal inspection ENT: positive: No signs of dehydration Neck: positive: Trachea midline, Other (mild kyphosis) Cardiovascular: positive: Regular rate & rhythm Respiratory: positive: No respiratory distress, Diminished in bases. negative: Wheezes, Rales, Rhonchi Abdomen: positive: Soft, Nml bowel sounds, Distended Skin: positive: Pallor, Dryness. negative: Pressure wound (resolved on tailbone; doing pressure relief) Extremities: positive: Pedal edema (wearing support hose left>right) Neurologic/Psychiatric: positive: Oriented x3, Mood/affect nml, Weakness, Flat affect Palliative Care - POLST Patient has POLST: Yes POLST Status: DNR, Selective Treatment Pain: Pain improved Tiredness/Fatigue: Moderate (4-6) Drowsiness/Sedation: Mild (1-3) Nausea: None Depression: Mild (1-3) Anxiety: Mild (1-3) Dyspnea: Mild (1-3) Anorexia: None Sleep: Variable sleep pattern (up to void at night) Constipation: No Feelings of wellbeing/Perceived Quality of Life: Fair, Acceptable, Improved - Palliative Care Discussion: Patient thankful to be home, she does have multiple pending medical appointments. She has feeling somewhat overwhelmed. She is very much enjoyed the attention of her family, and visiting with her daughters, her granddaughters have just arrived from [place] as well. She is in good spirits, does not really recall how sick she was or her hospitalization. She does understand the seriousness of her illness, but is hoping to improve her baseline quality of life, as well as extend quantity of life as long as it is acceptable. She does have a POLST with DNA R, and selective treatments with the goal to weigh benefits and burdens of interventions as they are presented. Results - Lab Results Lab results reviewed: Yes Impression and Recommendations - Palliative Care Impression: A 78-year-old woman with progressive super nuclear palsy/atypical Parkinson who was recently presented with acute illness of C difficile, sepsis, requiring hospitalization and SNF placement for rehab. She is currently at home, but also has multiple other comorbidities including stage III kidney disease, pending work-up with urology, pending work-up with rheumatology, as well as GI appointment tomorrow. Patient's goals are to improve quality and quantity of life, and return to increase level of independence. Palliative care to continue provide support regarding symptom management, coordination of care, and anticipatory guidance. Recommendations/Counseling Done: 1. C. difficile. This appears to have improved, with daily soft BMs, though still with some mucus. She is seeing GI tomorrow, she is at high risk for recurrence. We will coordinate with GI send today's note as CT scan and discharge summary for visit. 2. Recurrent UTIs. Patient's pending urology appointment 01/18 for follow-up on small polypoid mass found on CT scan. Patient has not had recurrent hematuria, does have intermittent incontinence and occasional dysuria. Patient has had surgical repair of cystocele. Discussed having a high threshold for treatment for UTI, given her risk. Patient is continued to push adequate fluids. 3. Chronic kidney disease stage IIIb. Patient's pending nephrology appointment 01/20. She has done some diet modifications, suspect she could relax on some of those. She has improved with her kidney function most likely related to recovering from her acute illness. 4. PSP/atypical Parkinson's. Patient does have a progressive neurologic disease, is hoping to maintain as much independence for as long as possible, though does understand the seriousness of her illness. She will continue with outpatient physical therapy, patient does appear to be overdoing and pushing through her fatigue in the a.m. Counseling provided regarding breaking up her exercises and activity through the day, pacing herself has not to get overtired. Patient remains high fall risk, they do currently have increased caregiving in the home which has helped with caregiver fatigue. Discussed outpatient versus home health therapy support, at this point time pursue getting out to therapy, will evaluate ongoing fatigue in response to this. Patient is [place] so will need to go through PCP 5. Weight loss. Patient is doing much better with eating, is trying to gain weight has gained 4 pounds since she has been home. Patient has not only lost weight but in particular muscle mass, she is balancing good nutrition, with high caloric intake. We will continue to monitor. 6. Advanced care planning. Patient's goals are to address her multiple comorbidities, move forward on a treatment plan, focus on quality of life issues and regaining as much independence as possible. Patient is quite frail, and at high risk for sequela of her multiple issues. Palliative care to continue provide support and coordination of care. I will see patient in 3 to 4 weeks after have completed specialist appointments no med changes this visit to record Time Spent: 45 minutes with greater than 50% of this done in counseling regarding goals of care, symptom management, medication reconciliation, and coordination of care. Will provide documents for GI visit tomorrow.
== END 2019-01-04 15:46 | disposition home or self-care (01) ==
LOC: PC 15:45
PROVIDERS: ATTEND Nurse Practitioner Adult Health
DX: Z51.5 Encounter for palliative care (principal); G23.1 Progressive supranuclear ophthalmoplegia [Steele-Richardson-Olszewski]; G20 Parkinson's disease; R62.7 Adult failure to thrive; R19.5 Other fecal abnormalities; N32.89 Other specified disorders of bladder; R33.9 Retention of urine, unspecified; R63.4 Abnormal weight loss; N18.3 Chronic kidney disease, stage 3 (moderate); Z87.440 Personal history of urinary (tract) infections; Z86.19 Personal history of other infectious and parasitic diseases; Z66 Do not resuscitate; Z87.42 Personal history of other diseases of the female genital tract; Z91.81 History of falling

== ENCOUNTER 2019-01-10 07:59 | Outpatient (CLI) | payer MEDICARE ==
[2019-01-10 10:45] LABS: CREATININE 1.4 mg/dL (0.4-1.0)
[2019-01-10 18:04] LABS: CREATININE,URINE 83.2 mg/dL; PROTEIN/CREATININE RATIO,URINE 0.2 (<=0.2)
== END 2019-01-10 08:00 | disposition home or self-care (01) ==
LOC: LAB.S 07:59
PROVIDERS: ATTEND Emergency Medicine
DX: I48.0 Paroxysmal atrial fibrillation (principal); R80.9 Proteinuria, unspecified; I48.91 Unspecified atrial fibrillation
CPT/HCPCS: 36415; 82565; 82570; 84156; 85610

== ENCOUNTER 2019-01-18 15:20 | Outpatient (CLI) | payer MEDICARE | END 2019-01-18 23:59 | disposition home or self-care (01) | LOC: LAB.N 15:20 | PROVIDERS: ATTEND Emergency Medicine | DX: I48.91 Unspecified atrial fibrillation (principal) | CPT/HCPCS: 85610 ==

== ENCOUNTER 2019-01-25 11:15 | Outpatient (CLI) | payer MEDICARE | END 2019-01-25 11:16 | disposition home or self-care (01) | LOC: LAB.S 11:15 | PROVIDERS: ATTEND Emergency Medicine | DX: I48.91 Unspecified atrial fibrillation (principal) | CPT/HCPCS: 85610 ==

== ENCOUNTER 2019-02-02 14:13 | Outpatient (CLI) | payer MEDICARE | END 2019-02-02 14:14 | disposition home or self-care (01) | LOC: LAB.S 14:13 | PROVIDERS: ATTEND Emergency Medicine | DX: I48.91 Unspecified atrial fibrillation (principal) | CPT/HCPCS: 85610 ==

== ENCOUNTER 2019-02-09 13:08 | Outpatient (CLI) | payer MEDICARE | END 2019-02-09 13:09 | disposition home or self-care (01) | LOC: LAB.S 13:08 | PROVIDERS: ATTEND Emergency Medicine | DX: I48.91 Unspecified atrial fibrillation (principal) | CPT/HCPCS: 85610 ==

== ENCOUNTER 2019-02-14 12:23 | Outpatient (CLI) | payer MEDICARE | END 2019-02-14 12:24 | disposition home or self-care (01) | LOC: LAB.S 12:23 | PROVIDERS: ATTEND Emergency Medicine | DX: I48.91 Unspecified atrial fibrillation (principal) | CPT/HCPCS: 85610 ==

== ENCOUNTER 2019-02-22 09:56 | Outpatient (CLI) | payer MEDICARE | END 2019-02-22 09:57 | disposition home or self-care (01) | LOC: LAB.S 09:56 | PROVIDERS: ATTEND Emergency Medicine | DX: I48.91 Unspecified atrial fibrillation (principal) | CPT/HCPCS: 85610 ==

== ENCOUNTER 2019-03-01 09:38 | Outpatient (CLI) | payer MEDICARE | END 2019-03-01 09:39 | disposition home or self-care (01) | LOC: LAB.S 09:38 | PROVIDERS: ATTEND Emergency Medicine | DX: I48.91 Unspecified atrial fibrillation (principal) | CPT/HCPCS: 85610 ==

== ENCOUNTER 2019-03-08 11:13 | Outpatient (CLI) | payer MEDICARE | END 2019-03-08 11:14 | disposition home or self-care (01) | LOC: LAB.S 11:13 | PROVIDERS: ATTEND Emergency Medicine | DX: I48.91 Unspecified atrial fibrillation (principal) | CPT/HCPCS: 85610 ==

== ENCOUNTER 2019-03-22 09:25 | Outpatient (CLI) | payer MEDICARE ==
[2019-03-22 17:44] LABS: INR 1.1 (0.8-1.2); PT - PROTHROMBIN TIME 12.4 secs (9.9-12.6)
== END 2019-03-22 09:26 | disposition home or self-care (01) ==
LOC: LAB.S 09:25
PROVIDERS: ATTEND Urology
DX: Z87.448 Personal history of other diseases of urinary system (principal); N32.89 Other specified disorders of bladder; Z79.01 Long term (current) use of anticoagulants
CPT/HCPCS: 36415; 85610

== ENCOUNTER 2019-04-15 18:05 | Outpatient (CLI) | payer MEDICARE ==
--- NOTE | 2019-04-15 19:40 | CONSULTATION NOTE ---
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 She was hospitalized in December as a result of C. difficile diarrhea, sepsis, hypotension and acute on chronic renal failure. She has been improving slowly, though during her work-up in the hospital was found to have an incidental finding of a bladder tumor. She did have a transurethral resection of the papillary bladder tumor on 03/23/2019. Unfortunately she did have some bleeding afterwards, but has had no further problems since then. The plan is for active survellience by cystoscopy every 3 months. Patient does have known stage III kidney disease, when stressed or severely ill progresses to stage IV. She is followed by Dr. Bustamante, though considered stable at this point in time. Her other complex medical problems are she does have significant musculoskeletal symptoms, with general stiffness in her muscles and joints, she has had progressive functional decline with worsening ability to ambulate, poor activity tolerance, and worsening truncal stability. Patient reports also history of peripheral neuropathy for at least 10 years, reports she has noted some progression with this with increased numbness on the tops of her feet. She does have poor vascular circulation both in her lower extremities and her hands, she attributes this to severe cardiomyopathy, with a known ejection fraction of 30 to 35%. She does have intermittent dizziness, had recently been trialed on a 20 mg prednisone dose by rheumatology, with no improv ement overall of her symptoms. She also has known history of breast cancer status post left mastectomy, with treatment of chemo and tamoxifen, paroxysmal atrial fib diagnosed in 2016, left bundle branch in 2016, history of cervical cancer, hypertension, obstructive sleep apnea, and left subclavian artery stenosis. Palliative care meeting with patient, given the complexity of all her disease status, and progressive decline from her PSP counseling for depression, adjustment to illness, and processing her current decline. She is to restart physical therapy on 04/21, is hoping to improve her functional status, as this would impact her improved quality of life. She is expressing increased and persistent symptoms of depression, and attributes this to tensions with her daughter. She dislikes being a burden on her family, she does recognize she is coming the end of her life, but wants her quality to be as good as possible. She has had some increased visual challenges with her PSP, unable to look down. Making this more difficult for reading. She does have caregivers 2 hours several times a week, this has ease the caregiving burden on her . Other notable is patient is having increased poor truncal stability, she does lean fairly significantly to the low left and tips her hips forward, she pinches that left hip to the left rib. She has had increased drooling, more increased trouble managing her oral secretions and clearing, increased phlegm. She does have increased effort with deep inspiration, she is worried about aspiration pneumonia, though does not present acutely with any signs or symptoms of infection, change in appetite, fever or chills, or progressive cough. She does have a appointment with her PCP tomorrow, and was wondering about chest x-ray. She does present with decreased respiratory effort, she does have diminished breath sounds her left lower lobe, no crackles or wheezing. Her O2 sats are 95%. Social History - Living Situation Living arrangement: At home Living Situation: With spouse/s.o. Support System: She lives with is to her Messi, who is in fairly good health. Unfortunately he is hard of hearing, and she has a weak voice with her PSP so communication is challenging between the 2 of them. Their main support is her daughter Scarlet, who does provide a lot of help and support and care. She is presenting with caregiver fatigue as well, and is trying to range back and set limits to better be able to care for herself. Medications/Allergies - Medications Home Medications: Ambulatory Orders Medication Instructions Recorded Confirmed carvediloL [Carvedilol] 3.125 mg PO BID 04/24/17 04/15/19 Cholecalciferol (Vitamin D3) 2,000 units PO DAILY 12/03/18 04/15/19 [Vitamin D3] Losartan Potassium 12.5 mg PO DAILY 12/03/18 04/15/19 Famotidine 20 mg PO DAILY #30 tablet 12/08/18 04/15/19 Ondansetron Odt [Zofran] 4 mg TL Q6H PRN #10 tablet 12/08/18 04/15/19 Spironolactone [Aldactone] 25 mg PO DAILY 12/10/18 04/15/19 - Allergies Allergies/Adverse Reactions: Allergies Allergy/AdvReac Type Severity Reaction Status Date / Time neomycin Allergy Rash Verified 11/15/18 14:19 pentazocine [From win] Allergy Unknown Verified 04/03/18 10:45 sulfamethoxazole Allergy Unknown Verified 04/03/18 10:45 [From Septra] trimethoprim [From Decra] Allergy Unknown Verified 11/15/18 14:19 Review of Systems - Constitutional Constitutional: reports: Fatigue, Weight stable. denies: Fever, Chills - Eyes Eyes: reports: Vision loss (unable to focus down; more visual changes from PSP) - Ears, Nose & Throat Ears, Nose & Throat: reports: Nasal congestion, Other (more difficulty with oral secretions; drooling; finds embarassing and distressful) - Cardiovascular Cardiovascular: reports: Edema, Decr. exercise tolerance. denies: Chest pain - Respiratory Respiratory: reports: Cough (mostly coughing of phelgm/managing of oral secreations), Other (feels more difficulty getting deep breath; pain in anterior chest with deep breathing; worried about aspiration pneumonia though no choking/change in appetite/fever or chills). denies: Wheezing, Orthopnea - Gastrointestinal Gastrointestinal: reports: Abdominal distention, Constipation (intermittent), Good appetite. denies: Nausea - Genitourinary Genitourinary: reports: Incontinence - Musculoskeletal Musculoskeletal: reports: Back pain, Stiffness, Limited range of motion, Muscle weakness (worsening; to start PT again 04/21), Assistive devices (uses walker short distances; uses scooter in home), Other (left rib pain/side "spasms") - Integumentary Integumentary: reports: Dryness - Neurological Neurological: reports: General weakness (worsening), Memory problems (occasional STM deficits/trouble tracking), Other (voice very weak; better when not concentrating; appears more aligned with weak breathing effort) - Psychiatric Psychiatric: reports: Depression (worsening;), Anxiety - Endocrine Endocrine: reports: Intolerance to cold - Hematologic/Lymphatic Hematologic/Lymphatic: reports: Anemia (10.1). denies: Recurrent infections - All Other Systems All Other Systems: reports: Reviewed and negative Physical Exam - Vital Signs Temperature: 97.0 C Pulse Rate: 104 Respiratory Rate: 18 O2 Saturation: 95 (ra @ rest) Blood Pressure: 118/64 - Physical Exam General Appearance: positive: Alert, Mild distress Eyes Bilateral: positive: Other (unable to focus gaze downward) ENT: positive: No signs of dehydration, Other (difficulty with oral secretions) Neck: positive: Trachea midline. negative: Lymphadenopathy (R), Lymphadenopathy (L) Cardiovascular: positive: Regular rate & rhythm Respiratory: positive: Other (decreased LLL). negative: Chest non-tender (difficulty taking deep breaths; some discomfort anterior chest), Wheezes, Rales, Rhonchi Abdomen: positive: Non-tender, Soft, Distended Skin: positive: Pallor, Dryness. negative: Pressure wound Extremities: positive: Pedal edema (trace; has compression stockings on), Other (hands and feet cold to touch) Neurologic/Psychiatric: positive: Oriented x3, Weakness, Slurred/abnml speech, Depressed mood/affect, Flat affect Palliative Care - POLST Patient has POLST: Yes POLST Status: DNR, Selective Treatment Pain: Pain worsening, Location (Left lower rib/side area; on exam scoliosis and poor truncal stabililty "pinching" hip/rib together) Tiredness/Fatigue: Severe (7-10) Drowsiness/Sedation: Mild (1-3) Nausea: None Anorexia: None Dyspnea: Mild (1-3) Depression: Moderate (4-6) Anxiety: Moderate (4-6) Feelings of wellbeing/Perceived Quality of Life: Poor, Worsening Sleep: Sleeps well Constipation: Yes, Intermittent constipation Performance Status: Patient had been receiving assistance with bathing, but is twitching up of caregivers is not as comfortable with her most recent caregivers. We did discuss the need to use caregiving support for safety as well as energy conservation. She is mostly scooter bound, does try to assist with meal prep aration, small household tasks as these bring her jony. She does have exercises, as well as trying to do vocalization exercises to strengthen her voice, but finds these take quite a bit of time and energy. She has not had any falls, but only ambulates a few steps. 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 She does tend to perseverate and over think things, and is willing to admit this. She does understand her PCS P is a progressive disease, but her hope is she just dies in her sleep some time. She wonders what "God is doing to test her" and what she is supposed to learn from this, she has had a strong loni and has since been part of her life, though she has been too weak to be able to attend hoahaoism or connect with a new hoahaoism community. She is interested in meeting with the palliative care mailroom supervisor, will make a referral. Patient does express feelings of persistent depression, exacerbated by tensions with her daughter. She does see herself on a slow decline, and hopes to have a stroke versus from her neurologic disease. She has chosen not to go back on her warfarin, and actually feels better off of it per her perspective. Patient does find it helpful to talk about the complexity of her grief and loss issues. Impression and Recommendations - Palliative Care Impression: This is a 78-year-old woman with progressive super nuclear palsy, Parkinson's syndrome, and failure to thrive. She continues to decline with her PSP with changes in vision, progressive neurologic decline with weakness, truncal instability, increased trouble managing her oral secretions, drooling, though denies any choking at this point in time. She does have multiple comorbidities that add to the complexity of her illness. She does have a POLST with DNA R and selective treatments with the goal again weighing benefits and burdens of interventions as they present themselves. Palliative care following patient for support until transition to hospice Recommendations/Counseling Done: 1. PSP. Patient does present with progressive symptoms, I did discuss perhaps following up with her neuro-doorkeeper, there are some adaptive classes for her current distress with vision changes. She is also to start PT on 04/11, encouraged to have them work on truncal stability as well. Patient does present with increased respiratory weakness, more secretions, and managing of drooling. She does find this emotionally distressful, with intermittent coughing of phlegm, and managing drooling. 2. Bladder cancer. In agreement with urologist, patient would not be a good candidate for further treatment, at this point in time intermittent cystoscopies with surveillance appear to be a conservative but appropriate approach. Depression. Patient does present with persistent depressive symptoms, fluctuating mood, and difficulty adjusting to her current ongoing decline. Patient is agreeable to palliative care mailroom supervisor, will make a referral. Can consider in the future and high antidepressant, though I suspect given her underlying neurologic disease, may cause more harm than good. We will continue support to palliative care team. 4. Advanced care planning. Patient does have POLST with DNA R and selective treatments in place. Patient does understand the seriousness of her illness, though is still willing to accept treatments that may prolong her quantity of life, as long as they do not impact her quality of life. Patient is hopeful to just "go in her sleep". Counseling provided regarding normalizing grief and loss response to her current physical decline. Time Spent: 60 minutes with greater than 50% of this done in counseling regarding adjustment to illness, depressive symptoms, disease trajectory, and anticipatory guidance.
== END 2019-04-15 18:06 | disposition home or self-care (01) ==
LOC: PC 18:05
PROVIDERS: ATTEND Nurse Practitioner Adult Health
DX: Z51.5 Encounter for palliative care (principal); G23.1 Progressive supranuclear ophthalmoplegia [Steele-Richardson-Olszewski]; F32.9 Major depressive disorder, single episode, unspecified; C67.9 Malignant neoplasm of bladder, unspecified; Z79.899 Other long term (current) drug therapy; Z66 Do not resuscitate
CPT/HCPCS: 99350

== ENCOUNTER 2019-05-26 13:59 | Outpatient (CLI) | payer MEDICARE | END 2019-05-26 14:00 | disposition home or self-care (01) | LOC: RT 13:59 | PROVIDERS: ATTEND Internal Medicine Cardiovascular Disease | DX: I48.91 Unspecified atrial fibrillation (principal) | CPT/HCPCS: 93005 ==

== ENCOUNTER 2019-06-01 15:00 | Outpatient (CLI) | payer MEDICARE ==
--- NOTE | 2019-06-01 18:20 | CONSULTATION NOTE ---
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 She has had a number of complications this last year including hospitalization for C. difficile, sepsis, hypotension, and ongoing renal failure. 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 She is currently on active surveillance with cystoscopy every 3 months. Patient does have known stage III kidney disease, she has significant peripheral neuropathy, with progression with and numbness, has had difficult few weeks with his sounds like restless leg syndrome, though she reports this has improved. In review, it does sound like she has had progressive neurodegenerative symptoms, with poor endurance, increased fatigue, functional decline despite trying to be active and continue with her exercises. She has flat affect, increased trouble with drooling, denies choking but experiencing excessive fatigue with chewing and eating. Her voice continues to weaken, she is unable to cough, does have trouble with secretions and clearing them. She reports her weight has decreased 210, she reports she has good days and bad days, feels like the bad days or when she pushes herself too hard.She does have the uncertainty of how quick her demise will be, she does understand PSP is a progressive disease, and expects further decline. In review of the literature, from initial symptoms prognosis is 6 to 10 years, as best I can tell she is about 8 years into it, so she is pushing into the collins shaped curve. She also is having increased eye symptoms, unable to look down, and her vision is worsening. She most recently has been to the psychological assistant, she perceives if she got a pacemaker, she did have better circulation to her feet and this would improve her decrease her neuropathy. She is slightly tachycardic, she has done a lot of modifications of her own medications. This is included taking herself off of warfarin, reports she is taking aspirin. She has been on amiodarone in the past, and no medication changes were made at the time of her visit. She they did order stress test, though cardiology note says to assess for coronary artery disease. Patient thinks it is for his pacemaker, again conversation was weighing benefits and burdens, given her ongoing decline in quality of life, if she wants anything that would add life prolongation. Patient's past medical history includes A. fib, anemia, arrhythmias, breast cancer in 2000, cervical cancer, chronic kidney disease stage III, hypertension, history of heart catheterization and history of mastectomy. Social History - Living Situation Living arrangement: At home Living Situation: With spouse/s.o. Support System: Patient lives with her Messi, who is in good health. He is very hard of hearing, and she has a very weak voice with her PSP, so communication is challenging between the 2 of them. The main support is her daughter Scarlet, who does come on Thursday and s, there have been significant tensions between Messi and patient, Messi does have OCD, and does get overwhelmed with patient's increasing care needs. They do have assistance through their long-term care insurance, though patient does not perceive needs help, feels like she has to entertain the people who come. They do help with cooking, laundry, and personal care as needed. The patient remains quite independent on her scooter. Medications/Allergies - Medications Home Medications: Ambulatory Orders Medication Instructions Recorded Confirmed carvediloL [Carvedilol] 3.125 mg PO BID 04/24/17 06/01/19 Cholecalciferol (Vitamin D3) 2,000 units PO DAILY 12/03/18 06/01/19 [Vitamin D3] Losartan Potassium 12.5 mg PO DAILY 12/03/18 06/01/19 Spironolactone [Aldactone] 12.5 mg PO DAILY 12/10/18 06/01/19 Ferrous Sulfate [High Potency Iron] 27 mg PO DAILY 06/01/19 06/01/19 Magnesium Oxide [Magnesium] 500 mg PO DAILY 06/01/19 06/01/19 - Allergies Allergies/Adverse Reactions: Allergies Allergy/AdvReac Type Severity Reaction Status Date / Time neomycin Allergy Rash Verified 11/15/18 14:19 pentazocine [From win] Allergy Unknown Verified 04/03/18 10:45 sulfamethoxazole Allergy Unknown Verified 04/03/18 10:45 [From ] trimethoprim [From ] Allergy Unknown Verified 11/15/18 14:19 Review of Systems - Constitutional Constitutional: reports: Fatigue (worsening), Weight loss (110 down from baseline 120). denies: Fever, Chills - Eyes Eyes: reports: Vision loss (worsening; can't see downward characteristic of PSp) - Ears, Nose & Throat Ears, Nose & Throat: reports: Other (voice weak) - Cardiovascular Cardiovascular: reports: Lightheadedness, Decr. exercise tolerance. denies: Irregular heart rate, Palpitations, Chest pain, Edema - Respiratory Respiratory: reports: SOB with exertion, Other (patient feels phelgm and clearing is orals secretions not respiratory). denies: SOB at rest - Gastrointestinal Gastrointestinal: reports: Constipation (intermittent), Early satiety, Other (tires with eating). denies: Diarrhea - Genitourinary Genitourinary: denies: Dysuria, Hematuria, Incontinence - Musculoskeletal Musculoskeletal: reports: Muscle aches, Stiffness, Limited range of motion, Muscle weakness, Assistive devices (uses walker for short distances;) - Integumentary Integumentary: reports: Dryness, Other (reports tender left heel) - Neurological Neurological: reports: General weakness, Other (voice weak). denies: Memory problems (patient denies) - Hematologic/Lymphatic Hematologic/Lymphatic: denies: Recurrent infections - All Other Systems All Other Systems: reports: Reviewed and negative Physical Exam - Vital Signs Temperature: 97.9 C Pulse Rate: 104 Respiratory Rate: 18 O2 Saturation: 97 (ra @ rest) Blood Pressure: 144/79 - Physical Exam General Appearance: positive: No acute distress, Alert Eyes Bilateral: positive: Other (eyes water easily; difficulty with blinking) ENT: positive: Other (fluctuating drooling; more difficulty clearing oral secretions) Neck: positive: Trachea midline Cardiovascular: positive: Regular rate & rhythm, Tachycardia Respiratory: positive: No respiratory distress, Breath sounds nml Abdomen: positive: Non-tender, Soft, Nml bowel sounds Skin: positive: Other (sightly pink left heel; tender to palpation; are floating at night) Extremities: positive: No pedal edema (darkened color) Neurologic/Psychiatric: positive: Oriented x3, Weakness, Slurred/abnml speech, Depressed mood/affect, Flat affect Palliative Care - POLST Patient has POLST: Yes POLST Status: DNR, Selective Treatment Pain: No pain Tiredness/Fatigue: Moderate (4-6) Drowsiness/Sedation: Mild (1-3) Nausea: None Anorexia: Mild (1-3) Dyspnea: Mild (1-3) Depression: Moderate (4-6) Anxiety: Moderate (4-6) Feelings of wellbeing/Perceived Quality of Life: Fair, Acceptable, Worsening Sleep: Sleep improved, Variable sleep pattern Constipation: Yes, Managed Performance Status: Patient requires some standby assist to get from sitting to standing safely, she denies any falls but has had close calls. She uses her scooter mostly to get around the house, she does do her exercises but is easily fatigued. She does need assistance with bathing, as well as some transfers. She is dependent on the wheelchair when going out for medical appointments. She is mostly homebound, does try to assist with some cooking and housework just because she wants to be normal. - Palliative Care Discussion: Long discussion regarding patient's feelings and concerns regarding her current decline, feelings of loss and grief regarding to things she can no longer do. Discussed her feelings of lack of control, worries about increased dependence on the future, she does admit to depression and apathy. She denies suicidality. She does have a sense of the seriousness in her decline, though does not really have a sense of her pending prognosis. She does have a few things left she like to do, she has started painting again. She is meeting with the palliative care wood getter. She does have some Legacy work she would like to do with writing letters to her grandchildren, would very much be open to a volunteer helping her complete this task.She was sharing her end-of-life experience regarding her father, who had decided when his time was up to stop eating. She is asking me about with dignity, discussed the complicated factors regarding that with her neurologic disease, and need to have a definitive diagnosis of 6 months or less, as well as be able to take the medications orally. We discussed her threshold for when quality of life would not be worth living for her, she is very fearful of being dependent, she does understand he is pushing the limits as far as what her can do as far as caring for her at this time, they have not had conversations or made plans for the future. Impression and Recommendations - Palliative Care Impression: This is an 78-year-old woman with progressive supranuclear palsy, Parkinson's syndrome, and ongoing functional decline. She continues to decline with her PSP with changes in vision, progressive neurologic decline with weakness, increased trouble managing her oral secretions, though does deny any choking. She has had some weight loss related to the fatigue of eating. She does have multiple co- morbidities that add to the complexity of her illness. Palliative care team following patient for support until transition to hospice. Recommendations/Counseling Done: 1. PSP. Patient does continue to present with progressive functional decline and symptoms regarding her neurological disease. Patient with poor cough effort, increased difficulty managing her oral secretions, and worsening fatigue. Patient expressing concerns living with the uncertainty of her illness, and worries about the future. 2. Depression. Patient does present with persistent depressive symptoms, fluctuating mood, and apathy. She has been meeting with the palliative care wood getter, she is not interested in adding any medication. She is doing some painting, she would be interested in doing some Legacy work and writing letters to her grandchildren. Counseling provided regarding normalizing grief and loss process as well as anticipatory guidance. 3. Nonischemic cardiomyopathy. Patient is due to have a stress test on Thursday, has some unrealistic expectations as far as the outcome, patient has been self adjusting her medications. Her psychological assistant is aware of her current medications noted in note not on their list. 4. Advanced care planning. Patient does have POLST with DNA R and selective treatments in place, she does understand the seriousness of her illness though does not have a clear understanding of her prognosis. She has had continued decline to this last year, with several complexities related to her complications of her multiple comorbidities. Counseling provided regarding the continuum of care, weighing benefits and burdens in the context of quality of l dylan, will continue to provide palliative care support until patient transitions to hospice. Time Spent: 60 minutes with greater than 50% of this done in counseling regarding patient's adjustment to illness, and anticipatory guidance, and continuum of care.
== END 2019-06-01 15:01 | disposition home or self-care (01) ==
LOC: PC 15:00
PROVIDERS: ATTEND Nurse Practitioner Adult Health
DX: Z51.5 Encounter for palliative care (principal); G23.1 Progressive supranuclear ophthalmoplegia [Steele-Richardson-Olszewski]; I12.9 Hypertensive chronic kidney disease with stage 1 through stage 4 chronic kidney disease, or unspecified chronic kidney disease; N18.3 Chronic kidney disease, stage 3 (moderate); F32.9 Major depressive disorder, single episode, unspecified; I42.8 Other cardiomyopathies; Z79.899 Other long term (current) drug therapy; Z66 Do not resuscitate
CPT/HCPCS: 99350

== ENCOUNTER 2019-09-22 16:42 | Outpatient (CLI) | payer MEDICARE ==
--- NOTE | 2019-09-22 18:45 | XRAY Report ---
PROCEDURE: Facial Bones Complete INDICATIONS: JAW PAIN, NECK PAIN TECHNIQUE: 3 views of the facial bones were acquired. COMPARISON: None. FINDINGS: Sinuses: Visualized sinuses demonstrate no air-fluid levels or mucosal thickening. Bones: No fractures. No suspicious bony lesions. Orbital rims and zygomatic arches appear intact. Soft tissues: No suspicious soft tissue densities. IMPRESSION: No acute radiographic findings. If there is high clinical suspicion of acute facial bone fracture, ma xillofacial CT is recommended. Reviewed by: Tonya Preciado MD on 09/22/2019 6:43 PM PDT Approved by: Tonya Preciado MD on 09/22/2019 6:43 PM PDT Station ID: [id number]
--- NOTE | 2019-09-22 18:56 | XRAY Report ---
PROCEDURE: Cervical Spine Complete INDICATIONS: NECK PAIN, JAW PAIN TECHNIQUE: 5 view(s) of the cervical spine were acquired. COMPARISON: None. FINDINGS: Bones: No fractures or dislocations to the C7 level. Moderate degenerative changes are present throu ghout the cervical spine including intervertebral disc space narrowing, endplate sclerosis, and osteo phytosis. The lateral masses of C1 appear intact on the odontoid view. No suspicious bony lesions. Mild neural foraminal narrowing is present bilaterally within the mid cervical spine. Soft tissues: No prevertebral soft tissue swelling. IMPRESSION: Degenerative change and mild bilateral foraminal narrowing. Reviewed by: Tonya Preciado MD on 09/22/2019 6:55 PM PDT Approved by: Tonya Preciado MD on 09/22/2019 6:55 PM PDT Station ID: [id number]
== END 2019-09-22 16:43 | disposition home or self-care (01) ==
LOC: DI.S 16:42
PROVIDERS: ATTEND Family Medicine
DX: M47.812 Spondylosis without myelopathy or radiculopathy, cervical region (principal); M48.02 Spinal stenosis, cervical region; R68.84 Jaw pain
CPT/HCPCS: 70150; 72050

== ENCOUNTER 2019-09-29 14:45 | Outpatient (CLI) | payer MEDICARE ==
--- NOTE | 2019-09-29 18:43 | CONSULTATION NOTE ---
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 She has had a number of complications this last year including hospitalization for C. difficile, sepsis, hypotension, and ongoing renal failure. 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 She is currently on active surveillance with cystoscopy every 3 months with most recent 08/31. She reports "infection" recently with short course of cipro. Reports her urine has cleared up. Patient does have known stage III kidney disease, she has significant peripheral neuropathy, with progression with and numbness. Her most recent complaint is neckpain for which she saw her PCP, with xrays, that did not show any significant findings. What she describes is actually stiffness and weakness, she has some kyphosis and is experiencing somewhat of a slack jaw, and wondering about a soft collar for support. She has been seeing a chiropractor for decreased range of motion in her neck, with some moderate improvement. She has been referred back to the neurologist. In review, it does sound like she has had progressive neurodegenerative symptoms, with poor endurance, increased fatigue, functional decline. She had regained some of her ambulation, with physical therapy support. But has not been following through on ambulating, but is doing her exercise bike, but does admit to decline. She has flat affect, increased trouble with drooling, denies choking but experiencing excessive fatigue with chewing and eating. Her voice continues to weaken, she is unable to cough, does have trouble with secretions a nd clearing them. She reports her weight has decreased to 120, she reports she has good days and bad days, feels like the bad days or when she pushes herself too hard.She does have the uncertainty of how quick her demise will be, she does understand PSP is a progressive disease, and expects further decline. She also is having increased eye symptoms, unable to look down, and her vision is worsening. She has taken herself off of most of her medications, continues on the Carvedilol, because when she quit she was having more arrhythmias. She feels like she feels better off of them, and less foggy in her brain. Patient's past medical history includes A. fib currently not on anticoag, anemia, arrhythmias, hx of carotid dx., breast cancer in 2000, cervical cancer, chronic kidney disease stage III, hypertension, history of heart catheterization and history of mastectomy. Social History - Living Situation Living arrangement: At home Living Situation: With spouse/s.o. Support System: Patient lives with her second Messi, who is hard of hearing. This makes it complicated between the 2 of them as she has a soft voice. They are managing actually quite well right now, they do have support from their long- term care insurance for private caregivers. Their daughter provide support at least weekly, this is Scarlet. She is expecting her other daughter from [place] for visit and is looking forward to this is as well. They have been much more isolated with JOEY-Amadeo, but have ventured out for shopping this last week, and found this quite helpful to get out and do something different. Medications/Allergies - Medications Home Medications: Ambulatory Orders Medication Instructions Recorded Confirmed carvediloL [Carvedilol] 3.125 mg PO BID 04/24/17 09/29/19 Cholecalciferol (Vitamin D3) 2,000 units PO DAILY 12/03/18 09/29/19 [Vitamin D3] Ginkgo Biloba 1 cap PO DAILY 09/29/19 09/29/19 Vit A/Vit C/Vit E/Zinc/Copper 1 cap PO DAILY 09/29/19 09/29/19 [Preservision Areds Softgel] - Allergies Allergies/Adverse Reactions: Allergies Allergy/AdvReac Type Severity Reaction Status Date / Time neomycin Allergy Rash Verified 11/15/18 14:19 pentazocine [From ] Allergy Unknown Verified 04/03/18 10:45 sulfamethoxazole Allergy Unknown Verified 04/03/18 10:45 [From ] trimethoprim [From ] Allergy Unknown Verified 11/15/18 14:19 Review of Systems - Constitutional Constitutional: reports: Fatigue (worsening), Weight loss (120-does not enjoy eating; and is much of an effort). denies: Fever, Chills - Eyes Eyes: reports: Vision loss - Ears, Nose & Throat Ears, Nose & Throat: reports: Other (voice weak; increased drooling) - Cardiovascular Cardiovascular: reports: Decr. exercise tolerance. denies: Palpitations, Chest pain - Respiratory Respiratory: denies: Cough ("spits up phelgm"; suspect more related to oral secretion management), SOB at rest - Gastrointestinal Gastrointestinal: reports: Early satiety. 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 denies: Memory problems - Psychiatric Psychiatric: reports: Depression. denies: Anxiety - All Other Systems All Other Systems: reports: Reviewed and negative Physical Exam - Vital Signs Temperature: 96.6 C Pulse Rate: 88 Respiratory Rate: 18 O2 Saturation: 96 (ra @ rest) Blood Pressure: 112/72 - Physical Exam General Appearance: positive: No acute distress, Alert, Cachetic, Other (facial masking) Eyes Bilateral: positive: No scleral icterus ENT: positive: No signs of dehydration, Other (needing to "dab" frequently related to mild drooling) Neck: positive: Trachea midline, Stiff neck (limited ROM; kyphosis), Other (tenderness palpation in jaw/temporal area but no masses or swelling; sits with slack jaw most of visit) Cardiovascular: positive: Regular rate & rhythm Respiratory: positive: No respiratory distress, Diminished in bases, Other (breathing shallow; cough effort weak) Abdomen: positive: Non-tender, Soft, Distended Skin: positive: Pallor, Dryness. negative: Pressure wound (denies pressure wound; declined examination) Extremities: positive: Pedal edema (trace bilat; wear support hose) Neurologic/Psychiatric: positive: Oriented x3, Weakness, Flat affect, Other (voice weak) Palliative Care - POLST Patient has POLST: Yes POLST Status: DNR, Selective Treatment Pain: Pain worsening, Location (neck/jaw area; does not take any medication; some relief of neck discomfort with massage and manipulation at chiropractor) Tiredness/Fatigue: Moderate (4-6) Drowsiness/Sedation: None Nausea: None Anorexia: Mild (1-3) Dyspnea: None Depression: Moderate (4-6) Anxiety: Mild (1-3) Feelings of wellbeing/Perceived Quality of Life: Fair, Acceptable, Worsening Sleep: Variable sleep pattern Constipation: No Performance Status: Patient mostly scooter bound, or sits in recliner. She reports she can pivot transfer and bathe independently with her current set up. She does receive some assistance with ADLs and IADLs from and caregivers. She does admit to worsening functional decline, has exercises and does them intermittently. Would benefit from reinstating therapy again now restrictions eased. - Palliative Care Discussion: Patient continues to reflect on decline, reports "there is not much more to lose" when talking about changes in her neurologic symptoms. She does try to stay positive, she is not been able to paint, she had restarted this briefly. She is still interested in doing [employer] work, they are staying connected via online to the [employer] community, she is finding this enjoyable. She does see her family weekly, and is looking forward to visits from her daughter. 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 She did enjoy going out to eat the other day, and tries to get out at least for a drive weekly to decrease her isolation. She is very distracted and distressed with the current world events, and finds this adds to her depressive symptoms. Impression and Recommendations - Palliative Care Impression: An 78-year-old woman with atypical Parkinson's, with diagnosis progressive supranuclear palsy. She continues with functional decline, worsening symptoms of vision changes, balance, weakness, drooling, and now with neck weakness and jaw pain. She is challenged to maintain her day-to-day activities, by her depressive symptoms, and by the overlying complexity of COVID-19. Palliative care continue provide intermittent support for symptom management, anticipatory guidance, and transition to hospice when appropriate Recommendations/Counseling Done: 1. Generalized weakness. This is multifactorial, does mean she is not able to position herself well in bed or turn independently. She is also quite sedentary spending significant amount of time in her recliner. In review of pressure relief measures, did suggest possible alternating pressure mattress, information given. Also counseled and not using "donut" cushion, recommended gel cushion for recliner, also she sits frequently on her scooter, when she is currently on is probably breaking down. Instructed continues Cavilon barrier cream, and pressure relief measures. Counseling also provided regarding recommended going back to physical therapy, may also add occupational therapy to help with increasing shoulder immobility, kyphosis, and poor truncal support. She is due to see neurology, will explore at that point in time if feel beneficial, but aware of current recommendations. 2. Depression. This is multifactorial, layered certainly by the complexity of the current environment with COVID-19. Patient is somewhat distressed with world events, encouraged to spend less time engaged in watching news, as she does spend a significant number of hours as well as emotional energy regarding this. She is being supported by the palliative care relief worker, unfortunately volunteers are not currently available. She is still interested in [employer] work of having ability to write letters to her grand children, will follow-up with medical palliative care social sciences research scientist may find a role in the context of both counseling and helping her with this work. 3. PSP. Patient does have slow functional decline, cognitively she does appear still doing fairly well. She is aware of the seriousness of her illness, continues weigh benefits and burdens regarding interventions as they come up, though she does get perseverative and fixated on "fixing things". 4. Weight loss. Patient reports just not interested in food, also the fatigue of eating and food prep. She is using boost, encouraged to increase calories as able. Goal is for no further weight loss. 5. Advanced care planning. Palliative care checking in regarding patient's goals, she is looking forward to the summer, family is visiting and some planned celebrations. She is staying connected to her [employer] community, but they are feeling both somewhat isolated, they do find caregivers supportive and feels like overall they are doing pretty well. We will continue with intermittent palliative care visits, at this point time they will reach out if further support needed. Will continue with team support for psychosocial issues. Time Spent: 60 minutes with greater than 50% of this done in counseling regarding pressure relief measures, management of symptoms, checking on goals and psychosocial issues, and anticipatory guidance.
== END 2019-09-29 14:46 | disposition home or self-care (01) ==
LOC: PC 14:45
PROVIDERS: ATTEND Nurse Practitioner Adult Health
DX: Z51.5 Encounter for palliative care (principal); R53.1 Weakness; R53.83 Other fatigue; F32.9 Major depressive disorder, single episode, unspecified; R63.4 Abnormal weight loss; G23.1 Progressive supranuclear ophthalmoplegia [Steele-Richardson-Olszewski]; Z79.899 Other long term (current) drug therapy; Z66 Do not resuscitate
CPT/HCPCS: 99350

== ENCOUNTER 2019-12-14 14:04 | Outpatient (CLI) | payer MEDICARE ==
[2019-12-14 20:10] LABS: BASOPHILS % (AUTO) 0.8 %; EOSINOPHILS # (AUTO) 0.1 10^3/uL (0.0-0.7); EOSINOPHILS % (AUTO) 1.3 %; HGB - HEMOGLOBIN 11.2 g/dL (12.0-16.0); LYMPHOCYTES % (AUTO) 21.8 %; MEAN CORPUSCULAR HEMOGLOBIN 30.3 pg (27.0-31.0); MEAN CORPUSCULAR HGB CONC 31.3 g/dL (32.0-36.0); MEAN CORPUSCULAR VOLUME 96.8 fL (81.0-99.0); MEAN PLATELET VOLUME 11.9 fL (7.9-10.8); MONOCYTES # (AUTO) 0.4 10^3/uL (0.0-1.0); NEUTROPHILS # (AUTO) 3.2 10^3/uL (1.5-6.6); NEUTROPHILS % (AUTO) 67.9 %; PLT - PLATELET COUNT 223 10^3/uL (130-450); RED CELL DISTRIBUTION WIDTH 13.2 % (12.0-15.0); WHITE BLOOD COUNT 4.8 x10^3/uL (4.8-10.8)
[2019-12-14 20:21] LABS: ALBUMIN 4.5 g/dL (3.2-5.5); ALBUMIN/GLOBULIN RATIO 1.5 (1.0-2.2); BILIRUBIN,TOTAL 0.7 mg/dL (0.2-1.0); CREATININE 1.1 mg/dL (0.4-1.0); TOTAL PROTEIN 7.6 g/dL (6.7-8.2)
== END 2019-12-14 14:05 | disposition home or self-care (01) ==
LOC: LAB.S 14:04
PROVIDERS: ATTEND Family Medicine
DX: R19.7 Diarrhea, unspecified (principal)
CPT/HCPCS: 36415; 80053; 81599; 82150; 83690; 85025; 87045; 87046; 87177; 87209; 87338; 87493

== ENCOUNTER 2019-12-15 07:00 | Outpatient (CLI) | payer MEDICARE ==
[2019-12-15 15:43] LABS: H. PYLORIS ANTIGEN STL NEGATIVE (Negative)
== END 2019-12-15 23:59 | disposition home or self-care (01) ==
LOC: LAB.R 07:00
PROVIDERS: ATTEND Family Medicine
DX: R19.7 Diarrhea, unspecified (principal)
CPT/HCPCS: 81599; 87045; 87046; 87177; 87209; 87329; 87338; 87427; 87493

== ENCOUNTER 2019-12-24 14:34 | Outpatient (CLI) | payer MEDICARE ==
--- NOTE | 2019-12-26 11:41 | MRI Report ---
PROCEDURE: Cervical Spine W/O INDICATIONS: ANESTHESIA/PARASTHESIA OF SKIN TECHNIQUE: Noncontrast sagittal T1 spin echo and T2 fast spin echo, sagittal STIR, foraminal oblique sagittal T2 fast spin echo, and axial gradient echo or T2 fast spin echo through the cervical spine. COMPARISON: None. FINDINGS: Image quality: Excellent. Alignment and Curvature: There is trace, approximately 1 mm C7-T1 anterolisthesis. Bone Marrow: Reactive endplate changes adjacent to the C4-C5, C5-C6 and C6-C7 discs. Spinal Cord: Visualized spinal cord has normal size and signal. No cerebellar tonsillar herniation. Paraspinous Soft Tissues: No paravertebral masses. Prevertebral soft tissues are normal in thicknes s. C2-C3: Loss of disc signal. Mild, diffuse disc bulge. No central stenosis. Mild bilateral facet hype rtrophy. Mild bilateral neural foraminal narrowing. No neural compression. C3-C4: Loss of disc signal. Mild, diffuse disc bulge. Mild right and moderate left facet hypertroph y. No central stenosis. Moderate right and severe left neural foraminal narrowing with compression of the exiting left C4 nerve root. C4-C5: Loss of disc signal and height. Mild, diffuse disc bulge. Mild right and moderate left facet hypertrophy. No central stenosis Moderate bilateral neural foraminal narrowing. No neural compression . C5-C6: Loss of disc signal and height. Mild to moderate diffuse disc bulge. Mild narrowing of the ce ntral canal. Mild bilateral facet hypertrophy. Moderate bilateral uncovertebral joint hypertrophy. Se nikki right and moderate left neural foraminal narrowing with compression of the exiting right C6 nerv e root. C6-C7: Loss of disc signal and height. Mild to moderate diffuse disc bulge. Mild narrowing of the ce ntral canal. Mild bilateral facet hypertrophy. Mild bilateral uncovertebral joint hypertrophy. Mild b ilateral neural foraminal narrowing. No neural compression. C7-T1: Loss of disc signal. Minimal, diffuse disc bulge. No central stenosis. No neural foraminal na rrowing. No neural compression. IMPRESSION: 1. Multilevel degenerative disc disease. 2. Multilevel facet and uncovertebral arthropathy. 3. No significant central canal narrowing. 4. Severe left C3-C4 neural foraminal narrowing with compression of the exiting left C4 nerve root. S evere right C5-C6 neural foraminal narrowing with compression of exiting right C6 nerve root. Reviewed by: Dilcia Tineo MD, PhD on 12/26/2019 11:40 AM PDT Approved by: Dilcia Tineo MD, PhD on 12/26/2019 11:40 AM PDT Station ID: [id number]
== END 2019-12-24 14:35 | disposition home or self-care (01) ==
LOC: DI 14:34
PROVIDERS: ATTEND Psychiatry & Neurology Neurology
DX: R20.0 Anesthesia of skin (principal); R20.2 Paresthesia of skin; M50.30 Other cervical disc degeneration, unspecified cervical region
CPT/HCPCS: 72141

== ENCOUNTER 2020-03-22 07:49 | Outpatient (CLI) | payer MEDICARE | END 2020-03-22 07:50 | disposition home or self-care (01) | LOC: DI 07:49 | PROVIDERS: ATTEND Internal Medicine Cardiovascular Disease | DX: I50.9 Heart failure, unspecified (principal); I08.3 Combined rheumatic disorders of mitral, aortic and tricuspid valves | CPT/HCPCS: 36415; 80048; 83880; 93306 ==

== ENCOUNTER 2020-03-22 09:24 | Outpatient (CLI) | payer MEDICARE ==
[2020-03-22 16:03] LABS: CALCIUM 10.2 mg/dL (8.5-10.3); CREATININE 1.4 mg/dL (0.4-1.0)
== END 2020-03-22 09:25 | disposition home or self-care (01) ==
LOC: LAB.S 09:24
PROVIDERS: ATTEND Internal Medicine Cardiovascular Disease
DX: I50.9 Heart failure, unspecified (principal)
CPT/HCPCS: 36415; 80048; 83880

== ENCOUNTER 2020-04-05 13:54 | Outpatient (CLI) | payer MEDICARE ==
[2020-04-05 20:10] LABS: ALBUMIN 4.4 g/dL (3.2-5.5); CALCIUM 9.6 mg/dL (8.5-10.3); CREATININE 1.5 mg/dL (0.4-1.0); PHOSPHORUS 4.2 mg/dL (2.5-4.6)
== END 2020-04-05 13:55 | disposition home or self-care (01) ==
LOC: LAB.S 13:54
PROVIDERS: ATTEND Nurse Practitioner
DX: I50.22 Chronic systolic (congestive) heart failure (principal)
CPT/HCPCS: 36415; 80069; 83880

== ENCOUNTER 2020-04-11 14:30 | Outpatient (CLI) | payer MEDICARE ==
--- NOTE | 2020-04-11 15:30 | XRAY Report ---
PROCEDURE: Chest 2 View X-Ray INDICATIONS: PNEUMONIA TECHNIQUE: 2 view(s) of the chest. COMPARISON: 12/09/2018 chest plain film. FINDINGS: Surgical changes and devices: None. Lungs and pleura: No pleural effusions or pneumothorax. Lungs are mildly abnormal, with a mild inte rstitial prominence at the right lung base but no definite focal consolidative pneumonia. There is a linear lucency at the far lateral aspect, vertically oriented, against the right lateral pleural surf jb. This appears to represent a skin fold rather than definite pneumothorax, and more superiorly the re is no similar abnormality.. Mediastinum: Mediastinal contours are normal. Heart size is normal. Bones and chest wall: No suspicious bony abnormalities. Soft tissues appear unremarkable. IMPRESSION: Chronic mild interstitial prominence, skin fold produces what appears to be a band of ve rtically oriented lucency at the lateral right lung base but no pneumothorax is found. A definite pne umonia is not present. Reviewed by: Guanakito Church MD on 04/11/2020 3:28 PM PST Approved by: Guanakito Church MD on 04/11/2020 3:28 PM PST Station ID: [id number]
== END 2020-04-11 14:31 | disposition home or self-care (01) ==
LOC: DI.S 14:30
PROVIDERS: ATTEND Internal Medicine
DX: J18.9 Pneumonia, unspecified organism (principal)

== ENCOUNTER 2020-04-23 14:59 | Outpatient (CLI) | payer MEDICARE ==
[2020-04-23 20:51] LABS: ALBUMIN 4.8 g/dL (3.2-5.5); PHOSPHORUS 4.6 mg/dL (2.5-4.6)
== END 2020-04-23 15:00 | disposition home or self-care (01) ==
LOC: LAB.S 14:59
PROVIDERS: ATTEND Nurse Practitioner
DX: I50.22 Chronic systolic (congestive) heart failure (principal)
CPT/HCPCS: 36415; 80069; 83880

== ENCOUNTER 2020-04-27 10:30 | Outpatient (CLI) | payer MEDICARE ==
--- NOTE | 2020-04-27 12:50 | CONSULTATION NOTE ---
Palliative Care Follow Up - Referral Referring Provider: Shirley Reaves PA-C Time of Visit: [id number] Referral setting: Home Referral Reason: CHF/Atypical Parkinsons (PSP)/FTT - Information Sources Records reviewed: Previous records reviewed History/Review of Systems obtained from: Patient, Family (Messi ; daugther Anita and Scarlet) Exam limitations: No limitations - History of Present Illness Update Brief HPI Update: This is 79-year-old woman who has multiple comorbidities, unfortunately her most recent one related to her cardiac condition, as her worsening congestive heart failure. She has been having increased breathlessness, orthopnea, and recent echo on 03/22 showed over the year a significant decrease in her ejection fraction from 55 to 60% now down to 20 to 25%, with severely globally impaired, severe secondary mitral regurgitation, and severe abnormality right heart pressures. Patient did see Dr. Briceño, who is a palliative manager of software, for consult, reviewed goals of care with her, given she wants a nonaggressive approach and is a DNR/DNI. There is no plan for invasive management, she is very sensitive to medications, has had intermittent hypotension, and now has worsening kidney function. Patient is only on small amounts of medication, including furosemide 20 mg, potassium 10 mEq, Carvediol 3.125 mg twice daily. I suspect she carries most of her fluid in her abdomen, she does have poor truncal stability, mild bloating and distention, trace to 1+ pitting edema, and diminished breath sounds in her bases. 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 She does have severe kyphosis, flat affect, choking with eating and drinking, poor endurance, increased fatigue, and ongoing functional decline. She does have trouble with drooling, her voice is quite weak, she has multiple vision problems including macular degeneration but also related to her PSP with lack of vision garcia. She has been expecting demise since I met her back in November 2018, and her goals have always been palliative in nature. Though she has had multiple specialists and ongoing many appointments. Patient also has arrhythmias, and has often adjusted her own meds, she is currently not anticoag. Past Medical History: Atrial fib, anemia, history of cardiac disease, breast cancer 2000, cervical cancer, chronic kidney stage III, hypertension, history of mastectomy history of catheterization, resected papillary tumor 03/2019. Significant peripheral neuropathy, restless leg syndrome. macular degeneration, history of severe C. difficile Social History - Living Situation Living arrangement: At home Living Situation: With spouse/s.o. Support System: Patient lives at home with her , who is very hard of hearing. This does make it quite complicated between the 2 of them as she has a soft voice. She has had functional decline so transfers are much more difficult. They have long-term care insurance and have been having private caregivers, their daughter provides some support in the weekend this is Scarlet, other daughter Anita is currently here given the increasing care needs and transition to hospice. They have been quite isolated with COVID-19, and have been challenged getting caregivers related the pandemic as well. Medications/Allergies - Medications Home Medications: Ambulatory Orders Medication Instructions Recorded Confirmed carvediloL [Carvedilol] 3.125 mg PO BID 04/24/17 04/27/20 Cholecalciferol (Vitamin D3) 2,000 units PO DAILY 12/03/18 04/27/20 [Vitamin D3] Furosemide [Lasix] 20 mg PO DAILY MDD 40 mg for 3 04/27/20 04/27/20 pound wt. gain Potassium Chloride 10 meq PO DAILY 04/27/20 04/27/20 polyethylene glycoL 3350 [Miralax] 17 gm PO DAILY 04/27/20 04/27/20 - Allergies Allergies/Adverse Reactions: Allergies Allergy/AdvReac Type Severity Reaction Status Date / Time neomycin Allergy Rash Verified 11/15/18 14:19 pentazocine [From Talwin] Allergy Unknown Verified 04/03/18 10:45 sulfamethoxazole Allergy Unknown Verified 04/03/18 10:45 [From Septra] trimethoprim [From Septra] Allergy Unknown Verified 11/15/18 14:19 Review of Systems - Constitutional Constitutional: reports: Fatigue (worsening), Weight gain (attributed to fluid; 128). denies: Fever, Chills - Eyes Eyes: reports: Blurred vision, Vision loss, Other (visual garcia) - Ears, Nose & Throat Ears, Nose & Throat: reports: Dry mouth, Other (soft voice) - Cardiovascular Cardiovascular: reports: Irregular heart rate, Palpitations, Edema (trace; wears stocking), Lightheadedness, Exertional dyspnea, Decr. exercise tolerance, Orthopnea (worsening). denies: Chest pain - Respiratory Respiratory: reports: Orthopnea, SOB at rest (at times), SOB with exertion - Gastrointestinal Gastrointestinal: reports: Abdominal distention, Constipation (new; attributes to fluid restriction), Nausea, Bloating - Genitourinary Genitourinary: reports: Incontinence (occ) - Musculoskeletal Musculoskeletal: reports: Muscle aches, Stiffness, Limited range of motion, Muscle weakness, Transfer issues (needing more assist; uses scooter most of day) - Integumentary Integumentary: reports: Dryness - Neurological Neurological: reports: General weakness - Psychiatric Psychiatric: reports: Depression (tearful appropriately), Anxiety - All Other Systems All Other Systems: reports: Reviewed and negative Physical Exam - Vital Signs Temperature: 97.1 C Pulse Rate: 93 Respiratory Rate: 18 O2 Saturation: 99 (ra @ rest) Blood Pressure: 112/78 - Physical Exam General Appearance: positive: No acute distress, Alert, Anxious, Cachetic Eyes Bilateral: positive: No scleral icterus, Other (watery;) ENT: positive: No signs of dehydration Neck: positive: Trachea midline Cardiovascular: positive: Irregular Respiratory: positive: Diminished in bases, Other (truncal instability; crunched over/kyphosis). negative: Wheezes, Rales, Rhonchi Abdomen: positive: Soft, Distended Skin: positive: Pallor, Dryness Extremities: positive: Pedal edema (trace) Neurologic/Psychiatric: positive: Oriented x3, Mood/affect nml, Weakness, S lurred/abnml speech, Flat affect Palliative Care - POLST Patient has POLST: Yes POLST Status: DNR, Comfort Measures (redone at visit) Pain: Pain worsening, Location (across mid abdominal area; feeling of tightness fluctuates) Tiredness/Fatigue: Moderate (4-6) Drowsiness/Sedation: Mild (1-3) Nausea: None Anorexia: None Dyspnea: Moderate (4-6) (mostly at night) Depression: Mild (1-3) Anxiety: Mild (1-3) Feelings of wellbeing/Perceived Quality of Life: Fair, Acceptable, Worsening Sleep: Sleeps well Constipation: Yes, Unmanaged Performance Status: Patient requiring increased assistance, with dressing, bathing, and toileting. Patient can still feed herself, though does have choking. Patient has had functional decline since last seen her, she is up in her scooter, but is a maximum assist transfer, and needs to be positioned and turned in bed. - Palliative Care Discussion: Family meeting with patient, Messi, daughter Anita and daughter Scarlet. Patient's goals are aligned with hospice, patient very much wants to focus on comfort, does not recognize though she is not imminently transitioning, that she is well within the realm of 6 months or less. She has seen functional decline, from her neurologic standpoint, and now understands her cardiac status is worsening regarding her heart failure. We did discuss the means focusing on comfort, no further specialists, managing things at home, and allowing natural . She does have a few things on her "bucket list", but these are doable in the context of Legacy work. Family is very supportive of her goals, we did complete POLST with DNR/DNI and comfort focused care. Patient would also like per 's request Messi, that Scarlet her daughter be her durable power of medical tax associate attorney. Form given for them to complete this. Expressed concerns by daughter and supported by . Messi has severe OCD, recently gave up drinking, is starting to decompensate. Would very much appreciate the support of the social services director to help get him hooked up with some mental health services. He is doing AA online, and they are providing much support they can. He is unable to manage her physical care, Anita is here to help bridge over till they come up with a caregiving plan. They do have some monies from a long-term care insurance, have a contact with rest care, but have been unable to fill all shifts. They are making arrangements for evening "putting to bed" daughters are available on the weekend. We will continue to work on plan for caregiving but will need further support from social work. They are also looking forward to reacquainted with the media intern, who has been in there previously for palliative care, and feels would be supportive for Messi as well. Results - Lab Results Lab results reviewed: Yes Impression and Recommendations - Palliative Care Impression: This is an 79-year-old woman has multiple comorbidities, unfortunately her one that has caused the most problem in the last few weeks has been her worsening nonischemic congestive cardiomyopathy, with chronic systolic heart failure class IV. She is limited both by her heart failure progressive neurologic disorder. Her goals are to focus on comfort, she has decided to transition to hospice. Palliative care providing support for family meeting for clarifying goals of care Recommendations/Counseling Done: 1. Nonischemic congestive cardiomyopathy, with chronic systolic heart failure class IV. Patient tolerates medications very poorly, balance between hypotension, her worsening kidney function, and sensitivities. Patient on very low-dose furosemide, fluid restriction of 1 and half liters, is doing daily weights. Her most significant symptom is her orthopnea, has recently been seen by palliative manager of software with addition of diuretics. 2. PSP. Patient continues to have functional decline related to her progressive neurologic disorder. She is needing more assistance, is finding this much more frustrating, family is trying to supplement caregiving. Expected continued decline, do have equipment and safety measures in place. No further changes at this time. 3. Advanced care planning. Family meeting regarding patient's goals of care, patient prognosis for neurologic disease originally was given from initial symptoms 6 to 10 years, she is about 9 years into it him obviously pressing the collins-shaped curve. As she presents with end-stage heart failure, with manager of software reporting most likely prognosis less than 1 year and more probable less than 6 months. Patient is hospice appropriate, and goals aligned. Did complete POLST with DN AR/DNI and comfort measures. Patient staffed with medical account liaison hospice, patient appropriate for admit, arrangements made for admit on Thursday. Time Spent: 60 minutes with greater than 50% of this time in counseling regarding goals of care, symptom management, hospice benefit, and anticipatory guidance.
== END 2020-04-27 10:31 | disposition home or self-care (01) ==
LOC: PC 10:30
PROVIDERS: ATTEND Nurse Practitioner Adult Health
DX: Z51.5 Encounter for palliative care (principal); I42.0 Dilated cardiomyopathy; G23.1 Progressive supranuclear ophthalmoplegia [Steele-Richardson-Olszewski]; I13.0 Hypertensive heart and chronic kidney disease with heart failure and stage 1 through stage 4 chronic kidney disease, or unspecified chronic kidney disease; N18.30 Chronic kidney disease, stage 3 unspecified; I50.20 Unspecified systolic (congestive) heart failure; Z66 Do not resuscitate
CPT/HCPCS: 99350

== ENCOUNTER 2021-02-05 14:30 | Outpatient (CLI) | payer MEDICARE | END 2021-02-05 14:31 | disposition EMS.NT | LOC: EMS 14:30 | DX: Z03.89 Encounter for observation for other suspected diseases and conditions ruled out (principal) ==